=== PATIENT | female | born 1935 | race Caucasian/White ===

== ENCOUNTER 2017-11-02 20:25 | Observation (INO) | payer MEDICARE, SELFPAY ==
[2017-11-02] VITALS (9 sets, daily range): BP systolic 100–144; BP diastolic 46–102; PULSE 64–83; RESP 16–18; TEMP 36.8–37; O2SAT 94–97; BMI 32.5; BMI 31.8; BMI 32.6
--- NOTE | 2017-11-02 20:44 | EKG12_ITS ---
Test Reason : CP Blood Pressure : / mmHG Vent. Rate : 085 BPM Atrial Rate : 085 BPM P-R Int : 190 ms QRS Dur : 088 ms QT Int : 388 ms P-R-T Axes : 044 002 052 degrees QTc Int : 461 ms Poor data quality, interpretation may be adversely affected Normal sinus rhythm Normal ECG Confirmed by MIGUEL SALEH, JONG ([id number]), story editor ANGIE AGUIRRE ([id number]) on 11/05/2017 2:18:00 PM Referred By: BETZAIDA/MARCK Confirmed By:JONG RIVERA MD
--- NOTE | 2017-11-02 20:50 | RAD_ITS ---
STUDY: X-RAY CHEST REASON FOR EXAM: Female, 82 years old. Shortness of breath, cough TECHNIQUE: Single AP portable view of the chest. COMPARISON: Prior study of 12/30/2013 FINDINGS: cardiac monitor leads are present. The lungs are clear and expanded. The right hemidiaphragm is elevated. Normal size heart. Normal mediastinum and noah. Normal visualized pulmonary arteries. Normal visualized aortic arch and descending thoracic aorta. Normal visualized thoracic spine. Normal visualized ribs, clavicles, and shoulders. There is no demonstrated abnormality of the visualized soft tissue structures of the upper abdomen. RAD/Chest 1 View (Portable) IMPRESSION: Elevated right hemidiaphragm. No acute cardiopulmonary disease process is seen. Electronically Signed: Osmin Valadez MD at 21:04 EDT , Service support ,
[2017-11-02 20:58] LABS: Absolute Lymphocyte Count 3.31 X10^3/ul (0.83-4.51); Absolute Neutrophil Count 3.1 X10^3/uL (2.0-7.7); Basophil# 0.03 X10^3/uL; Basophil% 0.4 % (0-1); Eosinophil# 0.38 X10^3/uL; Eosinophils% 5.2 % (0-5); Hemoglobin 13.3 g/dl (12.0-15.0); Lymphocyte # 3.31 X10^3/ul (4.0); Mean Corp Hgb Conc 34.1 g/gl (32-36); Mean Corpuscular Volume 87.8 fL (81-99); Mean Platelet Vol. 10.3 fl (6.2-12.0); Monocyte# 0.47 X10^3/uL; Monocyte% 6.4 % (0-10); Neutrophil # 3.12 X10^3/uL (2.7-7.7); Neutrophil % 42.5 % (47-70); POSITIVE COUNT NO; POSITIVE DIFFERENTIAL NO; POSITIVE MORPHOLOGY NO; Platelet Count 179 K/mm3 (150-450); RBC Distribution Width CV 13.7 % (11.6-14.6); RBC Distribution Width SD 43.1 fl (35.1-43.9); Red Blood Count 4.44 M/mm3 (4.2-5.4); White Blood Count 7.4 K/mm3 (4.4-11.0)
[2017-11-02] MEDS: 0.9% Normal Saline 1,000 ML 150 ML IV (21:03)
--- NOTE | 2017-11-02 21:14 | ED.RN ---
PT CHEST PAIN REDUCED FROM 5 HEAVINESS TO 1. REFUSING ANY OTHE NITRO AT THIS TIME. DR. HUSTON AWARE
[2017-11-02 21:18] LABS: Anion Gap 9 (5-15); BUN 17 mg/dL (7-18); BUN/Creat Ratio 13.9 RATIO (10-20); Calcium,Total 9.6 mg/dL (8.5-10.1); Chloride 107 mmol/L (98-107); Creatinine, Serum 1.22 mg/dL (0.55-1.02); EST Glomerular Filtration Rate 45 mL/min (>60); Est Glom Filt Rate - Afr Amer 55 mL/min (>60); Estimated Creatinine Clearance 27.75 ml/min; Glucose 166 mg/dL (74-106); Potassium 3.5 mmol/L (3.5-5.1); Sodium Level 142 mmol/L (136-145)
--- NOTE | 2017-11-02 21:36 | ED.VISSUMM ---
- ER Visit Summary Date of Service: 11/02/17 Chief Complaint: [] History of Present Illness: The patient is a 82 F chest pain and shortness of breath presents the emergency department with complaint of shortness of breath that started about an hour ago. Patient states that she was sitting on the couch watching television when she started to cough and feel short of breath. Patient also developed a chest heaviness and tightness. Patient called for help using her life alert button. On arrival she states she still has some mild shortness of breath and some mild chest tightness. Patient denies any radiation of pain. She denies recent travel or surgery. Patient has no cardiac history. Patient does have a history of diabetes, asthma, hypothyroidism, and sarcoidosis. [] Physical Examination: [HEENT-PERRLA, EOMI. Cranial nerves II through XII grossly intact. TMs clear. Mucous membranes moist. No adenopathy. Cardiovascular-regular rate and rhythm without murmur or ectopy Lungs-clear to auscultation, chest wall stable without crepitus or subcu emphysema Abdomen-normoactive bowel sounds, soft, nontender, no rebound or rigidity, no peritoneal signs. Extremities-intact ?4, normal range of motion, normal pulses, atraumatic] Test Results: [EKG obtained arrival showed a sinus rhythm with a ventricular rate of 85 bpm with no acute ST segment changes. When compared with prior EKG from December 2013 no new changes noted. CBC with differential obtained was unremarkable. Chemistries unremarkable. Troponin was less than 0.015. And chest x-ray showed nothing acute.] Emergency Department Course and Treatment: [Patient received aspirin via EMS and while in the emergency department she did receive 1 sublingual nitro that mostly resolved her pain.] Treatment Plan: [Admit for further workup and evaluation.] Disposition: [Admit] Impression: [Chest pain-rule out acute coronary syndrome] This note was generated with [employer] dictation software. It may contain incorrect words, spelling, and punctuation that were not noted in review of the chart prior to signing ED Disposition - Plan for ED Patient: Chief Complaint: Chest Pain Referrals: Regine Mas MD [Primary Care Provider] -
--- NOTE | 2017-11-02 21:49 | PCM.HP.STD ---
Problem List (1) Chest pain Status: Acute Qualifiers: Chest pain type: unspecified Qualified Code(s): R07.9 - Chest pain, unspecified (2) Obesity (BMI 30.0-34.9) Status: Chronic (3) GERD (gastroesophageal reflux disease) Status: Chronic Qualifiers: Esophagitis presence: esophagitis presence not specified Qualified Code(s): K21.9 - Gastro-esophageal reflux disease without esophagitis (4) Sarcoidosis Status: Chronic (5) Hypothyroidism Status: Chronic Qualifiers: Hypothyroidism type: unspecified Qualified Code(s): E03.9 - Hypothyroidism, unspecified (6) Asthma Status: Chronic Qualifiers: Asthma severity: unspecified severity Asthma persistence: unspecified Asthma complication type: unspecified Qualified Code(s): J45.909 - Unspecified asthma, uncomplicated History of Present Illness Date of Admission: 11/02/17 Chief Complaint: Chest pain The patient is a 82 y/o F w/ PMHx: Diabetes mellitus type II, Asthma, Hypothyroidism, Sarcoidosis, obesity, GERD who presents to the [facility] ED on 11/02/17 with history of onset of substernal chest discomfort described as pressure and heaviness with associated dyspnea with no nausea or emesis but felt hot and flushed rating her pain initially 10 out of 10 but upon ED presentation had improved to 5 out of 10. Patient notes that she has had exertional dyspnea with activities over the last several months but no prior episodes of chest discomfort. She was seated watching TV when this occurred. Patient was administered aspirin per EMS and upon arrival to the ED administered nitroglycerin with resolution of her chest pain following. In the ED work-up included T 98.6, heart rate 82, BP 144/102, respiratory rate 16, 96% on room air, CBC with WBC 7.4, hemoglobin 13.3, platelet 179, BMP with BUN/creatinine 17/1.22, glucose 166, troponin less than 0.015, EKG with SR, chest x-ray with elevated right hemidiaphragm with no acute cardiopulmonary disease noted otherwise. In the emergency room patient prototype sewer normal saline, aspirin, nitroglycerin. Past Medical History Past Medical History (Chronic Problems): Chronic Problems Obesity (BMI 30.0-34.9) (Chronic) GERD (gastroesophageal reflux disease) (Chronic) Sarcoidosis (Chronic) Hypothyroidism (Chronic) Asthma (Chronic) Allergies acetaminophen [From Vicodin] Adverse Reaction (Verified 11/02/17 20:30) Other alendronate sodium Adverse Reaction (Verified 11/02/17 20:30) Nausea/Vom/Diarrhea gabapentin [From Neurontin] Adverse Reaction (Verified 11/02/17 20:30) Other hydrocodone [From Vicodin] Adverse Reaction (Verified 11/02/17 20:30) Other naproxen [From Aleve] Adverse Reaction (Verified 11/02/17 20:30) Nausea/Vom/Diarrhea BANDAIDES Adverse Reaction (Uncoded 11/02/17 20:31) Rash Home Medications: Ambulatory Orders Medication Instructions Recorded Albuterol Aerosols [Ventolin 2.5 mg INHALATION Q6H PRN PRN 12/21/15 Aerosols] Benzonatate [Tessalon Perle] 100 mg PO TID PRN PRN 12/21/15 Dicyclomine HCl [Bentyl] 10 mg PO TIDAC PRN 12/21/15 Ergocalciferol [Vitamin D] 50 mcg PO MOFR 12/21/15 Fluticasone 0.05% [Flonase Nasal 1 spray NASAL DAILY 12/21/15 [place]] Glimepiride [Amaryl] 1 mg PO DAILY 12/21/15 Hydroxychloroquine [Plaquenil] 200 mg PO BIDCM 12/21/15 Levothyroxine [Synthroid] 50 mcg PO DAILY 12/21/15 Pantoprazole Sodium [Protonix] 40 mg PO DAILY 12/21/15 traZODone [Desyrel] 50 - 100 mg PO QHS PRN 12/21/15 Albuterol Sulfate [Ventolin Hfa] 2 puff IH Q4H PRN PRN 11/02/17 Dextromethorphan Polistirex 10 ml PO PRN PRN 11/02/17 [Delsym] Fluticasone 44 Mcg [Flovent (SP)] 2 puff INHALATION BID 11/02/17 Surgical History: - - Partial hysterectomy, cholecystectomy. 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 Denies: Chills, Fever, Weight Change HEENT: Denies: Head Aches, Sinus Congestion, Sinus Drainage Cardiovascular: Reports: Chest Pain, Chest Pressure, Chest Tightness. Denies: Edema, Light Headedness, Orthopnea, Palpitations Respiratory: Reports: Shortness of Breath, Shortness of breath at rest, Shortness of breath upon exertion. Denies: Cough, Sputum production Gastrointestinal: Denies: Abdominal Pain, Nausea, Vomiting Genitourinary: Denies: Dysuria Musculoskeletal: Denies: Joint Pain, Joint Tenderness Skin: Denies: Rash, Wounds Neurological: Denies: Numbness, Tingling, Focal weakness Psychiatric: Denies: Anxiety, Depression, Homicidal Ideations, Suicidal Ideations Hematologic/ Lymphatic: Denies: Easy Bruising, Easy Bleeding VTE Information - Inpt Only VTE Present on Admission: No VTE Mechan Device Prophylaxis: SCD's VTE Pharm Prophylaxis ordered?: Yes Patient Problems: Active and Suspected Problems Chest pain (Acute) Subjective: Seated upright in the ED bed, no acute distress, notes chest pain still currently resolved. Objective: Physical Examination: General: awake, alert, oriented x 3 and cooperative, seated upright in bed in no apparent distress. Skin: normal color, turgor, no icterus, cyanosis. HEENT: AT/NC, EOMI, PERRLA, MMM, no carotid bruits or JVD noted. Lungs: CTA bilaterally, moderate effort, mild decrease BL bases, no rales, ronchi or wheezing. Heart: Regular rate and rhythm; no gallop, rub audible. Abdomen: soft, obese, NTTP, ND, normal BS, no HSM. Extremities: no cyanosis, clubbing, or edema. Neurological: patient awake, alert, oriented x 3; cognitive function intact; pupils equally reactive to light and accomodation; cranial nerves II-XII grossly normal, moving all 4 extremities, no focal deficits, strength mildly to moderately globally decreased. Psychiatric: affect appears normal, no acute evidence of depressive or anxiety feelings. - Physical Exam Vital Signs Temp Pulse Resp BP Pulse Ox 98.6 F 83 16 128/55 H 96 11/02/17 20:26 11/02/17 21:03 11/02/17 20:26 11/02/17 21:03 11/02/17 20:26 Oxygen Delivery Method Room Air Weight: 172 lb 9.951 oz Body Mass Index (BMI) 32.5 Laboratory Tests Past 24 Hrs 11/02/17 11/02/17 20:31 20:31 WBC 7.4 RBC 4.44 Hgb 13.3 Hct 39.0 MCV 87.8 MCH 30.0 MCHC 34.1 RDW 13.7 RDW Differential 43.1 Plt Count 179 MPV 10.3 Immature Gran % (Auto) 0.500 Neut % (Auto) 42.5 L Lymph % (Auto) 45.0 H [place] % (Auto) 6.4 Eos % (Auto) 5.2 H Baso % (Auto) 0.4 Absolute Neuts (auto) 3.1 Absolute Lymphs (auto) 3.31 Total Counted Not Reportable Sodium 142 Potassium 3.5 Chloride 107 Carbon Dioxide 26.0 Anion Gap 9 BUN 17 Creatinine 1.22 H Estim Creat Clear Calc 27.75 Est GFR (MDRD) Af Amer 55 L Est GFR (MDRD) Non-Af 45 L BUN/Creatinine Ratio 13.9 Glucose 166 H Calcium 9.6 Troponin I < 0.015 Assessment/Plan All Active Problems Chest pain (Acute) The patient is a 82 y/o F w/ PMHx: Diabetes mellitus type II, Asthma, Hypothyroidism, Sarcoidosis, obesity, GERD who presents to the [facility] ED on 11/02/17 with history of onset of substernal chest discomfort described as pressure and heaviness with associated dyspnea with no nausea or emesis but felt hot and flushed rating her pain initially 10 out of 10 but upon ED presentation had improved to 5 out of 10. Patient notes that she has had exertional dyspnea with activities over the last several months but no prior episodes of chest discomfort. (1) Chest Pain: ED work-up included T 98.6, heart rate 82, BP 144/102, respiratory rate 16, 96% on room air, CBC with WBC 7.4, hemoglobin 13.3, platelet 179, BMP with BUN/creatinine 17/1.22, glucose 166, troponin less than 0.015, EKG with SR, chest x-ray with elevated right hemidiaphragm with no acute cardiopulmonary disease noted otherwise. Will admit to PCU, place on a monitored bed to assure no acute myocardial infarction with serial cardiac enzymes and EKGs. Patient is unable to perform exercise thus will proceed with AM nuclear stress testing. ASA, NG, morphine. Mag pending. FLP in AM. (2) Hypothyroidism: Continue home synthroid regimen, TSH and FT4 pending. (3) Suspected CKD unclear stage: Admission BUN/Cr 17/1.22, CrCl 27, prior 2016 < 30, unclear baseline Cr, repeat BMP in AM. (4) Chronic Asthma: ATC duonebs, PRN albuterol, HOB, IS parameters. (5) Diabetes mellitus type II: Hold oral home regimen, ADA diet until NPO status, accu checks w/ ISS. (6) Obesity: Weight loss and lifestyle changes encouraged. (7) Sarcoidosis: Maintain on home plaquenil regimen. (8) GERD: PPI. (9) DVT Prophylaxis: SCDs, heparin. Code Visit OBSV E&M: 60961 Initial observation care L3
--- NOTE | 2017-11-02 22:02 | HP.PCM_ITS ---
Problem List (1) Chest pain Status: Acute Qualifiers: Chest pain type: unspecified Qualified Code(s): R07.9 - Chest pain, unspecified (2) Obesity (BMI 30.0-34.9) Status: Chronic (3) GERD (gastroesophageal reflux disease) Status: Chronic Qualifiers: Esophagitis presence: esophagitis presence not specified Qualified Code(s): K21.9 - Gastro-esophageal reflux disease without esophagitis (4) Sarcoidosis Status: Chronic (5) Hypothyroidism Status: Chronic Qualifiers: Hypothyroidism type: unspecified Qualified Code(s): E03.9 - Hypothyroidism, unspecified (6) Asthma Status: Chronic Qualifiers: Asthma severity: unspecified severity Asthma persistence: unspecified Asthma complication type: unspecified Qualified Code(s): J45.909 - Unspecified asthma, uncomplicated History of Present Illness Date of Admission: 11/02/17 Chief Complaint: Chest pain The patient is a 82 y/o F w/ PMHx: Diabetes mellitus type II, Asthma, Hypothyroidism, Sarcoidosis, obesity, GERD who presents to the [facility] ED on 11/02/17 with history of onset of substernal chest discomfort described as pressure and heaviness with associated dyspnea with no nausea or emesis but felt hot and flushed rating her pain initially 10 out of 10 but upon ED presentation had improved to 5 out of 10. Patient notes that she has had exertional dyspnea with activities over the last several months but no prior episodes of chest discomfort. She was seated watching TV when this occurred. Patient was administered aspirin per EMS and upon arrival to the ED administered nitroglycerin with resolution of her chest pain following. In the ED work-up included T 98.6, heart rate 82, BP 144/102, respiratory rate 16, 96% on room air, CBC with WBC 7.4, hemoglobin 13.3, platelet 179, BMP with BUN/creatinine 17/1.22, glucose 166, troponin less than 0.015, EKG with SR, chest x-ray with elevated right hemidiaphragm with no acute cardiopulmonary disease noted otherwise. In the emergency room patient vocational examiner normal saline, aspirin, nitroglycerin. Past Medical History Past Medical History (Chronic Problems): Chronic Problems Obesity (BMI 30.0-34.9) (Chronic) GERD (gastroesophageal reflux disease) (Chronic) Sarcoidosis (Chronic) Hypothyroidism (Chronic) Asthma (Chronic) Allergies acetaminophen [From Vicodin] Adverse Reaction (Verified 11/02/17 20:30) Other alendronate sodium Adverse Reaction (Verified 11/02/17 20:30) Nausea/Vom/Diarrhea gabapentin [From Neurontin] Adverse Reaction (Verified 11/02/17 20:30) Other hydrocodone [From Vicodin] Adverse Reaction (Verified 11/02/17 20:30) Other naproxen [From Aleve] Adverse Reaction (Verified 11/02/17 20:30) Nausea/Vom/Diarrhea BANDAIDES Adverse Reaction (Uncoded 11/02/17 20:31) Rash Home Medications: Ambulatory Orders Medication Instructions Recorded Albuterol Aerosols [Ventolin 2.5 mg INHALATION Q6H PRN PRN 12/21/15 Aerosols] Benzonatate [Tessalon Perle] 100 mg PO TID PRN PRN 12/21/15 Dicyclomine HCl [Bentyl] 10 mg PO TIDAC PRN 12/21/15 Ergocalciferol [Vitamin D] 50 mcg PO MOFR 12/21/15 Fluticasone 0.05% [Flonase Nasal 1 spray NASAL DAILY 12/21/15 [place]] Glimepiride [Amaryl] 1 mg PO DAILY 12/21/15 Hydroxychloroquine [Plaquenil] 200 mg PO BIDCM 12/21/15 Levothyroxine [Synthroid] 50 mcg PO DAILY 12/21/15 Pantoprazole Sodium [Protonix] 40 mg PO DAILY 12/21/15 traZODone [Desyrel] 50 - 100 mg PO QHS PRN 12/21/15 Albuterol Sulfate [Ventolin Hfa] 2 puff IH Q4H PRN PRN 11/02/17 Dextromethorphan Polistirex 10 ml PO PRN PRN 11/02/17 [Delsym] Fluticasone 44 Mcg [Flovent (SP)] 2 puff INHALATION BID 11/02/17 Surgical History: - - Partial hysterectomy, cholecystectomy. 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 Denies: Chills, Fever, Weight Change HEENT: Denies: Head Aches, Sinus Congestion, Sinus Drainage Cardiovascular: Reports: Chest Pain, Chest Pressure, Chest Tightness. Denies: Edema, Light Headedness, Orthopnea, Palpitations Respiratory: Reports: Shortness of Breath, Shortness of breath at rest, S hortness of breath upon exertion. Denies: Cough, Sputum production Gastrointestinal: Denies: Abdominal Pain, Nausea, Vomiting Genitourinary: Denies: Dysuria Musculoskeletal: Denies: Joint Pain, Joint Tenderness Skin: Denies: Rash, Wounds Neurological: Denies: Numbness, Tingling, Focal weakness Psychiatric: Denies: Anxiety, Depression, Homicidal Ideations, Suicidal Ideations Hematologic/ Lymphatic: Denies: Easy Bruising, Easy Bleeding VTE Information - Inpt Only VTE Present on Admission: No VTE Mechan Device Prophylaxis: SCD's VTE Pharm Prophylaxis ordered?: Yes Patient Problems: Active and Suspected Problems Chest pain (Acute) Subjective: Seated upright in the ED bed, no acute distress, notes chest pain still currently resolved. Objective: Physical Examination: General: awake, alert, oriented x 3 and cooperative, seated upright in bed in no apparent distress. Skin: normal color, turgor, no icterus, cyanosis. HEENT: AT/NC, EOMI, PERRLA, MMM, no carotid bruits or JVD noted. Lungs: CTA bilaterally, moderate effort, mild decrease BL bases, no rales, ronchi or wheezing. Heart: Regular rate and rhythm; no gallop, rub audible. Abdomen: soft, obese, NTTP, ND, normal BS, no HSM. Extremities: no cyanosis, clubbing, or edema. Neurological: patient awake, alert, oriented x 3; cognitive function intact; pupils equally reactive to light and accomodation; cranial nerves II-XII grossly normal, moving all 4 extremities, no focal deficits, strength mildly to moderately globally decreased. Psychiatric: affect appears normal, no acute evidence of depressive or anxiety feelings. - Physical Exam Vital Signs Temp Pulse Resp BP Pulse Ox 98.6 F 83 16 128/55 H 96 11/02/17 20:26 11/02/17 21:03 11/02/17 20:26 11/02/17 21:03 11/02/17 20:26 Oxygen Delivery Method Room Air Weight: 172 lb 9.951 oz Body Mass Index (BMI) 32.5 Laboratory Tests Past 24 Hrs 11/02/17 11/02/17 20:31 20:31 WBC 7.4 RBC 4.44 Hgb 13.3 Hct 39.0 MCV 87.8 MCH 30.0 MCHC 34.1 RDW 13.7 RDW Differential 43.1 Plt Count 179 MPV 10.3 Immature Gran % (Auto) 0.500 Neut % (Auto) 42.5 L Lymph % (Auto) 45.0 H [place] % (Auto) 6.4 Eos % (Auto) 5.2 H Baso % (Auto) 0.4 Absolute Neuts (auto) 3.1 Absolute Lymphs (auto) 3.31 Total Counted Not Reportable Sodium 142 Potassium 3.5 Chloride 107 Carbon Dioxide 26.0 Anion Gap 9 BUN 17 Creatinine 1.22 H Estim Creat Clear Calc 27.75 Est GFR (MDRD) Af Amer 55 L Est GFR (MDRD) Non-Af 45 L BUN/Creatinine Ratio 13.9 Glucose 166 H Calcium 9.6 Troponin I < 0.015 Assessment/Plan All Active Problems Chest pain (Acute) The patient is a 82 y/o F w/ PMHx: Diabetes mellitus type II, Asthma, Hypothyroidism, Sarcoidosis, obesity, GERD who presents to the [facility] ED on 11/02/17 with history of onset of substernal chest discomfort described as pressure and heaviness with associated dyspnea with no nausea or emesis but felt hot and flushed rating her pain initially 10 out of 10 but upon ED presentation had improved to 5 out of 10. Patient notes that she has had exertional dyspnea with activities over the last several months but no prior episodes of chest discomfort. (1) Chest Pain: ED work-up included T 98.6, heart rate 82, BP 144/102, respiratory rate 16, 96% on room air, CBC with WBC 7.4, hemoglobin 13.3, platelet 179, BMP with BUN/creatinine 17/1.22, glucose 166, troponin less than 0.015, EKG with SR, chest x-ray with elevated right hemidiaphragm with no acute cardiopulmonary disease noted otherwise. Will admit to PCU, place on a monitored bed to assure no acute myocardial infarction with serial cardiac enzymes and EKGs. Patient is unable to perform exercise thus will proceed with AM nuclear stress testing. ASA, NG, morphine. Mag pending. FLP in AM. (2) Hypothyroidism: Continue home synthroid regimen, TSH and FT4 pending. (3) Suspected CKD unclear stage: Admission BUN/Cr 17/1.22, CrCl 27, prior 2016 < 30, unclear baseline Cr, repeat BMP in AM. (4) Chronic Asthma: ATC duonebs, PRN albuterol, HOB, IS parameters. (5) Diabetes mellitus type II: Hold oral home regimen, ADA diet until NPO status, accu checks w/ ISS. (6) Obesity: Weight loss and lifestyle changes encouraged. (7) Sarcoidosis: Maintain on home plaquenil regimen. (8) GERD: PPI. (9) DVT Prophylaxis: SCDs, heparin. Code Visit OBSV E&M: 11853 Initial observation care L3
--- NOTE | 2017-11-02 22:34 | EKG12_ITS ---
Test Reason : CP ADMISSION Blood Pressure : / mmHG Vent. Rate : 069 BPM Atrial Rate : 069 BPM P-R Int : 208 ms QRS Dur : 084 ms QT Int : 428 ms P-R-T Axes : 060 014 049 degrees QTc Int : 458 ms Normal sinus rhythm Low voltage QRS Cannot rule out Anterior infarct , age undetermined Abnormal ECG Confirmed by MIGUEL SALEH, JONG ([id number]), field map editor ANGIE AGUIRRE ([id number]) on 11/05/2017 2:31:29 PM Referred By: JACOB Confirmed By:JONG RIVERA MD
[2017-11-02] MEDS: 0.9% Normal Saline 1,000 ML 75 ML IV (23:20)
[2017-11-02] MEDS: Heparin Injection (Vial) 5,000 UNIT/ML VIAL 5000 UNIT SC (23:20)
[2017-11-02] MEDS: traZODone 50 MG Tablet PO (23:20)
[2017-11-02 23:35] LABS: Magnesium 1.9 mg/dL (1.6-2.6); T4 Free Direct 0.91 ng/dL (0.76-1.46); Thyroid Stim Hormone (TSH) 4.02 uIU/mL (0.358-3.74)
--- NOTE | 2017-11-02 23:35 | CPS ---
PATIENT ARRIVED TO FLOOR AND REQUESTED ROUTINE DUONEB AEROSOL NOW INSTEAD OF AT 0100.
[2017-11-03] VITALS (7 sets, daily range): BP systolic 114–118; BP diastolic 47–59; PULSE 65–73; RESP 14–16; TEMP 36.6–36.8; O2SAT 90–97
[2017-11-03 02:55] LABS: Hematocrit 33.2 % (37-47); Hemoglobin 11.1 g/dl (12.0-15.0); Mean Corp Hgb Conc 33.4 g/gl (32-36); Mean Corpuscular Hgb 29.4 pg (27.0-32.0); Mean Corpuscular Volume 87.8 fL (81-99); Mean Platelet Vol. 9.8 fl (6.2-12.0); Platelet Count 147 K/mm3 (150-450); RBC Distribution Width CV 13.9 % (11.6-14.6); RBC Distribution Width SD 44.8 fl (35.1-43.9); Red Blood Count 3.78 M/mm3 (4.2-5.4); White Blood Count 6.6 K/mm3 (4.4-11.0)
[2017-11-03 02:56] LABS: Scan Indicated on CBC? Y/N NO
[2017-11-03 03:00] LABS: International Normalized Ratio 1.1; Prothrombin Time (Protime)PT. 13.8 SECONDS (11.7-14.9)
[2017-11-03 03:01] LABS: Partial Thromboplast Time 34.9 Seconds (24.1-36.2)
[2017-11-03 03:17] LABS: Anion Gap 8 (5-15); BUN 15 mg/dL (7-18); Calcium,Total 8.8 mg/dL (8.5-10.1); Chloride 113 mmol/L (98-107); Cholesterol 138 mg/dL (200); Creatinine, Serum 1.07 mg/dL (0.55-1.02); EST Glomerular Filtration Rate 52 mL/min (>60); Est Glom Filt Rate - Afr Amer 63 mL/min (>60); Estimated Creatinine Clearance 31.64 ml/min; Glucose 115 mg/dL (74-106); High Density Lipoprotein 30 mg/dL; Potassium 4.3 mmol/L (3.5-5.1); Sodium Level 145 mmol/L (136-145); Triglycerides 220 mg/dL; Very Low Density Lipoprotein 44 mg/dL (5-40)
[2017-11-03] MEDS: Levothyroxine 50 MCG Tablet PO (05:01)
[2017-11-03] MEDS: Aspirin E.C. 81 MG Tablet PO (05:01)
--- NOTE | 2017-11-03 05:55 | EKG12_ITS ---
Test Reason : AM EKG Blood Pressure : / mmHG Vent. Rate : 065 BPM Atrial Rate : 065 BPM P-R Int : 224 ms QRS Dur : 078 ms QT Int : 448 ms P-R-T Axes : 048 008 054 degrees QTc Int : 465 ms Sinus rhythm with 1st degree A-V block Low voltage QRS Borderline ECG When compared with ECG of 02-NOV-2017 23:00, MANUAL COMPARISON REQUIRED, DATA IS UNCONFIRMED Confirmed by MIGUEL SALEH, JONG ([id number]), senior technical editor ANGIE AGUIRRE ([id number]) on 11/05/2017 2:29:56 PM Referred By: JACOB Confirmed By:JONG RIVERA MD
[2017-11-03 06:11] LABS: Bedside Glucose 101 mg/dL (70-110)
--- NOTE | 2017-11-03 08:49 | STRESSREP ---
Stress Test Report Pharmacologic myocardial perfusion stress test. 82-year-old lady with a history of chest pain. Stress protocol: Resting EKG demonstrates normal sinus rhythm with a rate of 65 bpm normal intervals and noted. Resting blood pressures 120/70 mmHg. 0.4 mg of regadenoson was infused per usual protocol continuous EKG monitoring was performed. The maximum heart rate attained was 92 bpm which was 65% of maximum predicted heart rate the maximum workload was 1 metabolic equivalent. The patient maintained sinus rhythm throughout the recording. At rest there were no ST or T-wave changes noted suggest abnormal flow reserve at peak infusion no ST or T-wave changes were noted suggest abnormal flow reserve. Myocardial perfusion protocol. 11.8 mCi of technetium 99m sestamibi was injected at rest. 0.4 mg regadenoson was infused per usual protocol peak infusion 34.1 mCi of technetium 99m sestamibi was injected stress images were obtained stress and rest images were reconstructed and compared in the short axis vertical long horizontal long axis. Gated images were also obtained pre- Perfusion SPECT analysis: Review of the stress images demonstrate normal uptake of tracer noted in all areas of the myocardium. The resting images similarly demonstrate normal uptake of tracer noted in all areas of the myocardium. Gated SPECT analysis: The gated ejection fraction is noted to be 53%. Conclusion: Normal pharmacologic myocardial perfusion stress test. Preserved ejection fraction.
[2017-11-03] MEDS: Acetaminophen 325 MG Tablet 650 MG PO (09:13)
[2017-11-03] MEDS: Pantoprazole Sodium 40 MG Tablet PO (09:13)
[2017-11-03] MEDS: Hydroxychloroquine 200 MG Tablet PO (09:13)
[2017-11-03] MEDS: Fluticasone 0.05% 1 SPRAY NASAL.SRY NASAL (09:15)
[2017-11-03] MEDS: Dicyclomine 10 MG Capsule PO (09:30)
[2017-11-03] MEDS: Insulin Lispro 100 UNIT/ML INSULN.PEN SC (11:19)
[2017-11-03 11:21] LABS: Bedside Glucose 211 mg/dL (70-110)
--- NOTE | 2017-11-03 11:39 | DCINST_ITS ---
- Discharge Diagnoses Current Active Problems: Current Active and Chronic Problems Obesity (BMI 30.0-34.9) (Chronic) GERD (gastroesophageal reflux disease) (Chronic) Chest pain (Acute) You will use the following diet at home:: Calorie/Carbohydrate Controlled (specify 1200, 1400, etc) - 1800 april / day Your food should be the consistency of: Regular Your liquids should be the consistency of: Regular/Thin Discharge Activity: Return to Normal Activity Allergies/Adverse Reactions: Allergies acetaminophen [From Vicodin] Adverse Reaction (Verified 11/02/17 20:30) Other alendronate sodium Adverse Reaction (Verified 11/02/17 20:30) Nausea/Vom/Diarrhea gabapentin [From Neurontin] Adverse Reaction (Verified 11/02/17 20:30) Other hydrocodone [From Vicodin] Adverse Reaction (Verified 11/02/17 20:30) Other naproxen [From Aleve] Adverse Reaction (Verified 11/02/17 20:30) Nausea/Vom/Diarrhea BANDAIDES Adverse Reaction (Uncoded 11/02/17 20:31) Rash Medications to take at Discharge Albuterol Aerosols [Ventolin Aerosols] 2.5 mg INHALATION Q6H PRN PRN 12/21/15 Benzonatate [Tessalon Perle] 100 mg PO TID PRN PRN 12/21/15 Dicyclomine HCl [Bentyl] 10 mg PO TIDAC PRN 12/21/15 Ergocalciferol [Vitamin D] 50 mcg PO MOFR 12/21/15 Fluticasone 0.05% [Flonase Nasal [place]] 1 spray NASAL DAILY 12/21/15 Glimepiride [Amaryl] 1 mg PO DAILY 12/21/15 Hydroxychloroquine [Plaquenil] 200 mg PO BIDCM 12/21/15 Levothyroxine [Synthroid] 50 mcg PO DAILY 12/21/15 Pantoprazole Sodium [Protonix] 40 mg PO DAILY 12/21/15 traZODone [Desyrel] 50 - 100 mg PO QHS PRN 12/21/15 Albuterol Sulfate [Ventolin Hfa] 2 puff IH Q4H PRN PRN 11/02/17 Dextromethorphan Polistirex [Delsym] 10 ml PO PRN PRN 11/02/17 Fluticasone 44 Mcg [Flovent 44 Mcg] 2 puff INHALATION BID 11/02/17 Primary Care Physician: Regine Mas MD [Primary Care Provider] - Please follow up with your Primary Care Physician in: 1-2 weeks Test Results: Test results from this visit will be discussed in further detail at your follow- up appointment, if applicable. Proposed Discharge Date: 11/03/17
--- NOTE | 2017-11-03 14:39 | DS.PCM_ITS ---
<Pablo Escoto - Last Filed: 11/03/17 14:36> Discharge Date and Diagnosis Date of Admission: 11/02/17 Date of Discharge: 11/03/17 - Primary Discharge Diagnosis Chest pain - musculoskeletal asthma obesity hypothyroid sarcoidosis GERD - Secondary Discharge Diagnosis Chronic Problems Obesity (BMI 30.0-34.9) (Chronic) GERD (gastroesophageal reflux disease) (Chronic) Sarcoidosis (Chronic) Hypothyroidism (Chronic) Asthma (Chronic) Hospital Course and Treatment Imaging Results: 11/03/17 05:55 Nuclear Stress Test - Chemical [NM] AM (NON MEDS) Conclusion: Normal pharmacologic myocardial perfusion stress test. Preserved ejection fraction. RAD/Chest 1 View (Portable) IMPRESSION: Elevated right hemidiaphragm. No acute cardiopulmonary disease process is seen. Operations: None Procedures: Stress test Summary of Care Provided: Physical exam on day of discharge: General: Resting comfortably NAD Psych: A/Ox3 normal affect HEENT: PEARRLA AT NC Neck: Supple NT CV: RRR no m/t/r/g/h Resp: CTA Abd: [id number] Soft NT no guarding or rigidity Ext: DP2+= no edema Skin: W/D normal turgor Lymph/Heme: No active bleeding or adenopathy Neuro: CN2-12 intact Hospital course: The patient is a 82 year old F with past medical history of asthma, sarcoidosis, hypothyroidism, GERD who presented to the emergency room with chief complaint of chest heaviness for 2 days. The emergency room the patient had a negative EKG, negative troponin, negative chest x-ray. She was admitted and placed in the PCU for chest pain workup. Troponin was cycled remain negative. She had no events on telemetry. She underwent a stress test following morning with no indication of ischemia. This felt that her chest heaviness is likely secondary to musculoskeletal pain. She was discharged home in stable condition with no further changes. Advised her to follow-up with her PCP in 1 to weeks. This patient was seen by Pablo Escoto PA-C under the supervision of Doctor Singh. [] Discharge Diet: No Restrictions Discharge Activity: Return to Normal Activity Home Medications: Medications to take at Discharge Albuterol Aerosols [Ventolin Aerosols] 2.5 mg INHALATION Q6H PRN PRN 12/21/15 Benzonatate [Tessalon Perle] 100 mg PO TID PRN PRN 12/21/15 Dicyclomine HCl [Bentyl] 10 mg PO TIDAC PRN 12/21/15 Ergocalciferol [Vitamin D] 50 mcg PO MOFR 12/21/15 Fluticasone 0.05% [Flonase Nasal [place]] 1 spray NASAL DAILY 12/21/15 Glimepiride [Amaryl] 1 mg PO DAILY 12/21/15 Hydroxychloroquine [Plaquenil] 200 mg PO BIDCM 12/21/15 Levothyroxine [Synthroid] 50 mcg PO DAILY 12/21/15 Pantoprazole Sodium [Protonix] 40 mg PO DAILY 12/21/15 traZODone [Desyrel] 50 - 100 mg PO QHS PRN 12/21/15 Albuterol Sulfate [Ventolin Hfa] 2 puff IH Q4H PRN PRN 11/02/17 Dextromethorphan Polistirex [Delsym] 10 ml PO PRN PRN 11/02/17 Fluticasone 44 Mcg [Flovent 44 Mcg] 2 puff INHALATION BID 11/02/17 Primary Care Physician: Regine Mas MD [Primary Care Provider] - Please follow up with your Primary Care Physician in: 1-2 weeks Disposition: Home Minutes spent on discharge:: 35 Patient Condition:: Stable Medical Necessity - Tobacco Use Smoking Status: Never smoker Tobacco Use: Non-smoker Meaningful Use Info Meaningful Use Diagnoses (Choose all that apply): None applicable <Kulwant Singh - Last Filed: 11/03/17 17:17> Discharge Date and Diagnosis - Secondary Discharge Diagnosis Chronic Problems Obesity (BMI 30.0-34.9) (Chronic) GERD (gastroesophageal reflux disease) (Chronic) Sarcoidosis (Chronic) Hypothyroidism (Chronic) Asthma (Chronic) Hospital Course and Treatment Summary of Care Provided: This patient was seen in conjunction with Pablo COLLAZO. I have independently interviewed and examined the patient and reviewed pertinent history, examination findings, laboratory and plan of management. I have reviewed the note and agree with the documented findings with the few additional points. Patient does not have history of coronary artery disease or stent in the past. Denies CHF or arrhythmia. Patient was seen and examined. HEENT: PERRLA present, EOMI. Lungs: Air entry bilaterally equal. No crepitation/rhonchi Heart: S1-S2 regular no gallop/rub/murmur. Extremities: 2+ pedal edema Skin: No ulcer/rash. Neuro: Cranial nerves intact. Grossly normal. In brief, patient is admitted for chest heaviness for last 2 days. Patient had negative troponin and chest x-ray. She had nuclear stress test which showed no evidence of ischemia. Chest pain resolved. Patient is discharged home discharge meds reconciliation done. Discharge follow-up instructions completed. I have discussed my assessment with Pablo COLLAZO and orders have been reviewed. [] Code Visit OBSV E&M: 93403 Observation care discharge
== END 2017-11-03 11:39 | disposition home or self-care (01) ==
LOC: ED 21:42 → PCU 22:00
PROVIDERS: Admitting Provider Family Medicine; Emergency Provider Emergency Medicine; Family Provider Internal Medicine; PCP Internal Medicine; Visit Provider Internal Medicine
DX: R07.89 Other chest pain (principal); R06.02 Shortness of breath; Z23 Encounter for immunization; Z79.899 Other long term (current) drug therapy; J45.909 Unspecified asthma, uncomplicated; E11.9 Type 2 diabetes mellitus without complications; E03.9 Hypothyroidism, unspecified; D86.9 Sarcoidosis, unspecified; K21.9 Gastro-esophageal reflux disease without esophagitis; E66.9 Obesity, unspecified; Z68.31 Body mass index [BMI] 31.0-31.9, adult; Z71.3 Dietary counseling and surveillance; R94.31 Abnormal electrocardiogram [ECG] [EKG]
CPT/HCPCS: 36415; 71045; 78452; 80048; 80061; 82962; 83735; 84439; 84443; 84484; 85025; 85027; 85610; 85730; 93005; 93017; 94640; 96360; 96361; 96372; 99218; 99285; A9500; J7030; 90686; A4216; G0378; J2785

== ENCOUNTER → 2017-11-16 10:37 | Outpatient (CLI) | payer MEDICARE, SELFPAY ==
--- NOTE | 2017-11-16 11:01 | CT_ITS ---
STUDY: CTA CHEST REASON FOR EXAM: Female, 82 years old. Shortness of breath. PE. RADIATION DOSAGE (If Supplied By Facility): CTDIvol = ( 13.57 ) mGy, DLP = ( 532.53 ) mGycm TECHNIQUE: The examination was performed with the intravenous administration of 100 ml of Isovue 370 contrast material. Post-processing of the angiographic images was performed, with multiplanar reformation and MIP (maximum intensity projection) reconstruction. Individualized dose optimization techniques were used for this CT. COMPARISON: None. FINDINGS: Normal enhancement of the main pulmonary artery and right and left pulmonary arteries. Normal enhancement of the bilateral peripheral pulmonary arteries. There is no demonstrated pulmonary embolism. Mild dilatation of the ascending aorta with a diameter of 3 cm versus 2.1 cm for the descending thoracic aorta. 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 There is no demonstrated aortic dissection. Normal heart and pericardium. Several small solid lymph nodes in the right side of the superior mediastinum, the peritracheal space, the anterior carinal space and adjacent the left side of the ascending aorta. Normal hilar regions. Normal visualized trachea and bronchi. The lungs are well expanded. Calcified granuloma in the posterior segment of the right upper lobe. Calcified granuloma in the anterior segment of the right upper lobe. No suspicious pulmonary nodules. Normal pleura. Normal chest wall structures. Normal osseous structures. Normal visualized upper abdomen. CT/CTA Chest W/WO Contrast IMPRESSION: 1. No CTA evidence of pulmonary thromboemboli or thoracic aortic dissection. 2. Mild dilatation of the ascending aorta with a diameter of 3 cm versus 2.1 cm for the descending thoracic aorta. 3. 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 4. Several small solid lymph nodes in the right side of the superior mediastinum, the peritracheal space, the anterior carinal space and adjacent the left side of the ascending aorta. They are presumably benign reactive nodes. 5. No suspicious pulmonary nodules or acute abnormality in the chest. Electronically Signed: Shailesh Dominique MD at 12:19 EDT , Service support ,
== END ==
PROVIDERS: Family Provider Internal Medicine; PCP Internal Medicine; Referring Provider Nurse Practitioner Primary Care; Visit Provider Nurse Practitioner Primary Care
DX: R06.02 Shortness of breath (principal); R79.89 Other specified abnormal findings of blood chemistry
CPT/HCPCS: 71275; Q9967

== ENCOUNTER 2019-01-16 21:37 | Emergency (ER) | payer MEDICARE, SELFPAY ==
[2019-01-16 21:41] VITALS: BP 143/66; PULSE 78; RESP 18; TEMP 37.2; O2SAT 97; BMI 33.0
[2019-01-16 21:46] VITALS: BP 136/62
--- NOTE | 2019-01-16 22:07 | CT_ITS ---
STUDY: CT ABDOMEN AND PELVIS WITHOUT CONTRAST REASON FOR EXAM: Female, 83 years old. Right flank pain, frequent urination increased with movement RADIATION DOSAGE (If Supplied By Facility): CTDIvol = ( 11.55 ) mGy, DLP = ( 623.25 ) mGycm TECHNIQUE: Transaxial images were obtained from the dome of the diaphragm to the symphysis pubis without oral contrast, and without intravenous contrast. Sagittal and coronal images were reconstructed. Individualized dose optimization techniques were used for this CT. COMPARISON: Prior comparison studies are not available for review at this time. FINDINGS: The visualized lung bases are unremarkable. The visualized portions of the heart are within normal limits. Normal liver. There is non-visualization of the gallbladder, which may be secondary to either contraction or a prior cholecystectomy. Normal spleen. There is diffuse atrophy of the pancreas. Normal bilateral adrenal glands. There is mild right renal atrophy. The right kidney measures 7.6 x 4.6 x 4.9 cm. There is minimal left renal atrophy left renal cortical thinning. The left kidney measures 8.4 x 4.8 cm. There is no evidence of hydronephrosis. There is a punctate stone in the left kidney. Normal visualized stomach. Normal small intestine. There is mild to moderate stool in the proximal colon. The appendix is visualized and appears normal. There is partial calcification of the aorta. Normal inferior vena cava. There are multiple borderline atypical 1.4 cm lymph nodes in the left to midline retroperitoneum. Normal urinary bladder. There is absence of the uterus consistent with a prior hysterectomy. There is a right-sided periumbilical hernia with an opening measuring 1.7 cm there which 7.6 x 4.2 x 4.0 cm of intra-abdominal fat herniates. This is best appreciated image #84 series 602. There is multilevel degenerative change within the thoracolumbar spine. At L2-L3 there is vacuum phenomenon disc bulge disc space narrowing and mild neural foramina narrowing mild central stenosis. L3-L4 L4-L5 there is a broad disc bulge with moderate neural foramina narrowing mild to moderate central stenosis. CT/Abdomen/Pelvis without Cont IMPRESSION: Mild right greater than left renal atrophy. Nonobstructing renal calculi. Punctate stone left kidney no evidence of hydronephrosis. Moderate constipation. Right to midline fatty paraumbilical hernia measuring 7.6 x 4.2 x 4.0 cm. Status post hysterectomy. Degenerative change in the thoracolumbar spine. Nonvisualization of the gallbladder which is likely been surgically removed. Electronically Signed: Anabell Leonard MD at 23:25 EST Tel , Service support ,
[2019-01-16] MEDS: 0.9% Normal Saline 1,000 ML 125 ML IV (22:22)
[2019-01-16 22:25] LABS: Mucous, Urine 0 SEEN /hpf (<or=2+)
[2019-01-16 22:25] LABS: Absolute Lymphocyte Count 2.36 X10^3/uL (0.83-4.51); Basophil# 0.05 X10^3/uL; Basophil% 0.7 % (0-1); Eosinophil# 0.43 X10^3/uL; Eosinophils% 5.8 % (0-5); Hematocrit 40.6 % (37-47); Hemoglobin 13.8 g/dL (12.0-15.0); Lymphocyte # 2.36 X10^3/ul (4.0); Lymphocyte % 31.8 % (19-41); Mean Corpuscular Hgb 29.6 pg (27.0-32.0); Mean Corpuscular Volume 87.1 fL (81-99); Mean Platelet Vol. 10.8 fl (6.2-12.0); Monocyte# 0.57 X10^3/uL; Monocyte% 7.7 % (0-10); NRBC Flagged by Analyzer 0 % (0-5); Neutrophil # 3.95 X10^3/uL (2.7-7.7); Neutrophil % 53.3 % (47-70); Platelet Count 207 K/mm3 (150-450); RBC Distribution Width CV 13.8 % (11.6-14.6); RBC Distribution Width SD 43.2 fl (35.1-43.9); Red Blood Count 4.66 M/mm3 (4.2-5.4); White Blood Count 7.4 K/mm3 (4.4-11.0)
[2019-01-16 22:28] LABS: Color, Urine Yellow (Yellow); Glucose, Dipstick Normal (Normal); Ketone-Dipstick Negative (Negative); Leukocyte Esterase-Dipstick 500 /ul (Negative); Nitrite-Dipstick Positive (Negative); Occult Blood-Urine 25 /ul (Negative); Protein-Dipstick Negative (Negative); Specific Gravity, Urine 1.025 (1.002-1.030); Urine Bilirubin Dipstick Negative (Negative); Urine Clarity Sl. Cloudy (Clear); Urine Urobilinogen Normal (Normal)
[2019-01-16 22:44] LABS: Anion Gap 5 (5-15); BUN 18 mg/dL (7-18); BUN/Creat Ratio 15.5 RATIO (10-20); Calcium,Total 9.9 mg/dL (8.5-10.1); Chloride 110 mmol/L (98-107); Creatinine, Serum 1.16 mg/dL (0.55-1.02); EST Glomerular Filtration Rate 48 mL/min (>60); Est Glom Filt Rate - Afr Amer 58 mL/min (>60); Glucose 204 mg/dL (74-106); Potassium 4.3 mmol/L (3.5-5.1); Sodium Level 141 mmol/L (136-145)
[2019-01-16 22:47] LABS: Red Blood Cells-Urine 0-5 SEEN /hpf (0-5); White Blood Cells 10-25 SEEN /hpf (0-5)
[2019-01-16 22:48] LABS: Bacteria 1+ /hpf (None Seen); Squamous Epithelial Cells - UA 0-5 SEEN /hpf (5-10)
--- NOTE | 2019-01-16 23:08 | ED.VISSUMM ---
- ER Visit Summary Date of Service: 01/16/19 Chief Complaint: [Right-sided flank pain] History of Present Illness: The patient is a 83 F [is to the emergency department with complaint of pain in her right side that she has had for over 2 months. States the pain is been continuous. Patient states that today she was walking with her girlfriend the pain became worse. Pain is worse with movement. Patient denies any nausea or vomiting. She denies any diarrhea. She denies any blood in stool. She is had no fevers. She denies any trauma to her back. She denies pain rating down her legs. She denies saddle anesthesia. Patient has a history of hypothyroidism as well as GERD and history of asthma. Does complain of some urinary frequency at times. Patient sometimes feels like she cannot completely empty her bladder.] Physical Examination: [HEENT-PERRLA, EOMI. Cranial nerves II through XII grossly intact. TMs clear. Mucous membranes moist. No adenopathy. Cardiovascular-regular rate and rhythm without murmur or ectopy Lungs-clear to auscultation, chest wall stable without crepitus or subcu emphysema Abdomen-normoactive bowel sounds, soft. Patient has tenderness palpation over right lower quadrant and some mild CVA tenderness on the right. She was noted to have fungal yeastlike rash in the groin bilaterally. Back exam-no tenderness over the thoracic or lumbar spine. Negative straight leg raises. Deep tendon reflexes are plus 2 out of 4 bilaterally at the patella and Achilles. She has normal L5 extension. Extremities-intact ?4, normal range of motion, normal pulses, atraumatic] Test Results: [BC with differential obtained showed a white count of 7.4, hemoglobin 13.8, hematocrit 41, platelets 207. Chemistries unremarkable. Urinalysis was positive for 500 site esterase as well as nitrites. Patient had 10-25 WBCs and +1 bacteria noted.] CT scan of the abdomen pelvis without contrast was obtained and showed no evidence of kidney stones. Patient had some atrophy of the kidneys. Patient had a fatty periumbilical hernia and degenerative changes of the lumbar spine with central canal stenosis and some disc herniations noted. Emergency Department Course and Treatment: [Patient did not anything for pain on arrival. Patient was given Rocephin 1 g IV.] Treatment Plan: [Patient will be given a prescription for Bactrim as well as nystatin cream. Patient to follow-up with primary care physician within next 5 to 7 days.] Disposition: [Discharged home in stable condition] Impression: [UTI Candidal yeast infection Abdominal pain Back pain] This note was generated with [employer] software. It may contain incorrect words, spelling, and punctuation that were not noted in review of the chart prior to signing ED Disposition - Plan for ED Patient: Referrals: Regine Mas MD [Primary Care Provider] -
[2019-01-16] MEDS: Ceftriaxone 1 GM/50 ML BAG IV (23:10)
--- NOTE | 2019-01-16 23:48 | ED.DEP ---
ED Disposition - Plan for ED Patient: Instructions: FLANK PAIN, Uncertain Cause, Bladder Infection, Female (Adult), KOLE SKIN INFECTION (Adult) Prescriptions: Smz/Tmp Ds [Bactrim Ds] 1 tab PO BID #10 tab Prescription Printed Nystatin/Triamcin Cream [Mycolog] 1 applic TOPICAL BID #1 tube Prescription Printed Phenazopyridine HCl [Pyridium] 200 mg PO BID PRN PRN #10 tab PRN Reason: Pain Prescription Printed Referrals: Regine Mas MD [Primary Care Provider] - 5-7 Days
[2019-01-17 00:02] VITALS: BP 128/66; PULSE 70; RESP 16; O2SAT 96
== END 2019-01-17 00:14 | disposition home or self-care (01) ==
LOC: ED 22:14
PROVIDERS: Emergency Provider Emergency Medicine; Family Provider Internal Medicine; PCP Internal Medicine
DX: N39.0 Urinary tract infection, site not specified (principal); B37.2 Candidiasis of skin and nail; E03.9 Hypothyroidism, unspecified; J45.909 Unspecified asthma, uncomplicated; K21.9 Gastro-esophageal reflux disease without esophagitis; Z79.51 Long term (current) use of inhaled steroids; Z79.84 Long term (current) use of oral hypoglycemic drugs; Z79.899 Other long term (current) drug therapy
CPT/HCPCS: 74176; 80048; 81001; 85025; 87077; 87086; 87088; 87186; 96361; 96365; 99285; J7030

== ENCOUNTER 2019-04-01 14:00 | Emergency (ER) | payer MEDICARE, MEDICAID, SELFPAY ==
[2019-04-01 14:06] VITALS: BP 115/79; PULSE 77; RESP 17; TEMP 36.8; O2SAT 97; BMI 31.1
--- NOTE | 2019-04-01 14:39 | RAD_ITS ---
STUDY: X-RAY - LEFT KNEE REASON FOR EXAM: Female, 83 years old. left knee gives out TECHNIQUE: 4 view(s) of the knee. COMPARISON: None. FINDINGS: Normal visualized distal femur. Normal visualized proximal tibia and fibula. Normal proximal tibiofibular articulation. Normal medial femorotibial compartment. Normal lateral femorotibial compartment. Normal patellofemoral articulation. There is a soft tissue prominence in the suprapatellar region suggesting a small volume joint effusion. The soft tissue structures are unremarkable. RAD/Knee 4 or More Views IMPRESSION: Small volume joint effusion. No demonstrated fracture. Electronically Signed: Luis Lindsay MD ([place]) at 15:11 EST , Service support ,
--- NOTE | 2019-04-01 15:34 | ED.VISSUMM ---
- ER Visit Summary Date of Service: 04/01/19 Chief Complaint: [Left knee pain and instability] History of Present Illness: The patient is a 83 F [presents the emergency department with complaint of feeling like her knees on a give out for the last month. Patient states intermittently will give out and she will feel like she is going to fall but has typically caught herself. Patient today was making her bed and her left knee buckled and she Fell into the bed but did not injure herself. Patient denies any other injury or trauma otherwise. She does complain of some pain with bearing weight. She does normally use a walker when she walks. Patient states that she was following up with her primary care physician next week and was been asked about getting a brace for it.] Physical Examination: [HEENT-PERRLA, EOMI. Cranial nerves II through XII grossly intact. TMs clear. Mucous membranes moist. No adenopathy. Cardiovascular-regular rate and rhythm without murmur or ectopy Lungs-clear to auscultation, chest wall stable without crepitus or subcu emphysema Abdomen-normoactive bowel sounds, soft, nontender, no rebound or rigidity, no peritoneal signs. Extremities-intact ?4, normal range of motion, normal pulses, atraumatic. Left knee-no external evidence of trauma. Patient has some mild tenderness just anterior to the patella and inferior to the patella. No obvious effusion noted. Ligamentously stable. Negative anterior and posterior drawer test noted.] Test Results: [X-rays of the left knee obtained showed a small effusion but otherwise nothing acute.] Emergency Department Course and Treatment: [She was given a knee immobilizer. Patient will follow-up with her orthopedic surgeon Dr. Royal.] Treatment Plan: [Follow-up with orthopedics in 3 to 5 days. Patient will be given a knee immobilizer for support. I suspect possibly ligamentous injury versus meniscal injury.] Disposition: [Discharged home in stable condition] Impression: [Left knee pain/sprain-suspect possible internal derangement] This note was generated with [employer] dictation software. It may contain incorrect words, spelling, and punctuation that were not noted in review of the chart prior to signing ED Disposition - Plan for ED Patient: Referrals: Regine Mas MD [Primary Care Provider] -
--- NOTE | 2019-04-01 15:37 | ED.DEP ---
ED Disposition - Plan for ED Patient: Instructions: KNEE PAIN, Meniscus Injury (Possible) Referrals: Regine Mas MD [Primary Care Provider] - Sharath Royal MD [STAFF PHYSICIAN] - 3-5 Days
[2019-04-01 16:01] VITALS: PULSE 70; RESP 18; O2SAT 98
== END 2019-04-01 16:02 | disposition home or self-care (01) ==
LOC: ED 14:54
PROVIDERS: Emergency Provider Emergency Medicine; PCP Internal Medicine
DX: S83.92XA Sprain of unspecified site of left knee, initial encounter (principal); J45.909 Unspecified asthma, uncomplicated; K21.9 Gastro-esophageal reflux disease without esophagitis; E11.9 Type 2 diabetes mellitus without complications; E03.9 Hypothyroidism, unspecified; Z79.51 Long term (current) use of inhaled steroids; Z79.84 Long term (current) use of oral hypoglycemic drugs; Z79.899 Other long term (current) drug therapy; X58.XXXA Exposure to other specified factors, initial encounter; Y93.9 Activity, unspecified; Y92.003 Bedroom of unspecified non-institutional (private) residence as the place of occurrence of the external cause; Y99.8 Other external cause status
CPT/HCPCS: 73564; 99284

== ENCOUNTER 2019-04-06 21:46 | Emergency (ER) | payer MEDICARE, MEDICAID, SELFPAY ==
[2019-04-06 21:47] VITALS: BP 149/116; PULSE 87; RESP 23; TEMP 36.9; O2SAT 96; BMI 31.0
--- NOTE | 2019-04-06 22:27 | EKG12_ITS ---
Test Reason : DIZZINESS Blood Pressure : / mmHG Vent. Rate : 075 BPM Atrial Rate : 075 BPM P-R Int : 200 ms QRS Dur : 076 ms QT Int : 404 ms P-R-T Axes : 012 065 018 degrees QTc Int : 451 ms Normal sinus rhythm Poor R wave progression Confirmed by MIGUEL SALEH, JONG ([id number]), senior editor MARU PACHECO ([id number]) on 04/10/2019 9:54:39 AM Referred By: GISELL Confirmed By:JONG RIVERA MD
--- NOTE | 2019-04-06 22:27 | CT_ITS ---
STUDY: CT BRAIN WITHOUT CONTRAST REASON FOR EXAM: Female, 83 years old. Dizziness for 2 hours. Elevated BGL RADIATION DOSAGE (If Supplied By Facility): CTDIvol = ( 44.99 ) mGy, DLP = ( 779.24 ) mGycm TECHNIQUE: Transaxial CT imaging of the brain was performed without administration of intravenous contrast material. Individualized dose optimization techniques were used for this CT. COMPARISON: No relevant priors. FINDINGS: Normal soft tissue structures. Normal calvarium. Normal size ventricles and extra-axial spaces for the patient''s age. Normal white matter tracts of the cerebral hemispheres. Normal basal ganglia and thalami. Normal brainstem. Normal cerebellum. There is no intracranial hemorrhage. There are no findings of an acute ischemic infarction. Normal visualized paranasal sinuses. CT/Brain/Head without Contrast IMPRESSION: No acute intracranial or calvarial abnormality. Electronically Signed: Costa Galindo DO at 23:30 EST Tel [phone], Service support ,
--- NOTE | 2019-04-06 22:33 | ED.VISSUMM ---
- ER Visit Summary Date of Service: 04/06/19 Chief Complaint: Lightheaded History of Present Illness: The patient is a 83 F with lightheadedness over the past 2 to 3 hours. Patient feels like she will pass out if she stands up. She had similar symptoms in the past which were associated with dehydration and high blood sugar. She checked her sugar and it was 246. She normally checks her blood sugar once a week and does not take insulin. Denies vertigo symptoms currently. Denies any vision changes, speech changes, facial droop, weakness, or numbness. Denies polyuria or polydipsia. Denies fevers or infectious symptoms or recent illness. Denies change in her medications. Denies chest pain, shortness of breath, abdominal pain, or GI symptoms. Physical Examination: Afebrile and vital signs unremarkable. Alert and oriented. No acute distress. Head and neck unremarkable. Heart regular. Lungs clear. Abdomen soft. Extremities nontender with no edema. Good strength and sensation, symmetric. Cranial nerves grossly intact. Test Results: EKG, chest x-ray, CT brain, labs, urinalysis pending. Emergency Department Course and Treatment: Patient presents with near syncope and elevated blood sugar, but has no other specific symptoms. Work-up as above. Patient was treated with IV fluids and we checked orthostatic vital signs. EKG showed sinus rhythm at a rate of 75 with no sign of ischemia or infarction pattern. Chest x-ray showed nothing acute. CT brain showed nothing acute. CBC normal. Glucose 232, BUN 25, creatinine 1.23. Urinalysis shows signs of infection. Cultures pending. Troponin normal. Orthostatics were positive. Patient received 2 L of IV fluids. She was treated with Keflex for her UTI. Cultures are pending. She has no signs of sepsis. She is able to ambulate and will be discharged home for outpatient care and follow-up. Return for any new or worsening issues. Treatment Plan: As above Disposition: Discharge Impression: 1. Dehydration 2. Hyperglycemia 3. UTI This note was generated with [employer] software. It may contain incorrect words, spelling, and punctuation that were not noted in review of the chart prior to signing ED Disposition - Plan for ED Patient: Referrals: Regine Mas MD [Primary Care Provider] -
--- NOTE | 2019-04-06 22:35 | RAD_ITS ---
STUDY: X-RAY CHEST REASON FOR EXAM: Female, 83 years old. Dizziness for 2 hours. TECHNIQUE: Single AP portable view of the chest. COMPARISON: November 02, 2017 FINDINGS: Marked elevation of the right hemidiaphragm unchanged from prior study. Lungs well expanded and free of infiltrate or mass. There is no demonstrated pleural abnormality. Normal size heart. Normal mediastinum and noah. Normal visualized pulmonary arteries. Normal visualized aortic arch and descending thoracic aorta. No visualized osseous changes. There is no demonstrated abnormality of the visualized soft tissue structures of the upper abdomen. RAD/Chest 1 View (Portable) IMPRESSION: No acute cardiopulmonary disease or interval change. Electronically Signed: Costa Galindo DO at 22:57 EST Tel [phone], Service support ,
[2019-04-06 22:52] VITALS: O2SAT 96
[2019-04-06] MEDS: 0.9% Normal Saline 1,000 ML 1000 ML IV (22:53)
[2019-04-06 22:55] LABS: Absolute Lymphocyte Count 1.93 X10^3/uL (0.83-4.51); Absolute Neutrophil Count 4.8 X10^3/uL (2.0-7.7); Basophil# 0.03 X10^3/uL; Basophil% 0.4 % (0-1); Eosinophil# 0.32 X10^3/uL; Eosinophils% 4.1 % (0-5); Hematocrit 41.9 % (37-47); Hemoglobin 13.8 g/dL (12.0-15.0); Lymphocyte # 1.93 X10^3/ul (4.0); Mean Corp Hgb Conc 32.9 g/dL (32-36); Mean Corpuscular Hgb 29.1 pg (27.0-32.0); Mean Corpuscular Volume 88.2 fL (81-99); Mean Platelet Vol. 10.7 fl (6.2-12.0); Monocyte# 0.63 X10^3/uL; Monocyte% 8.2 % (0-10); NRBC Flagged by Analyzer 0 % (0-5); Neutrophil # 4.78 X10^3/uL (2.7-7.7); Neutrophil % 61.9 % (47-70); Platelet Count 187 K/mm3 (150-450); RBC Distribution Width CV 13.7 % (11.6-14.6); RBC Distribution Width SD 44.4 fl (35.1-43.9); Red Blood Count 4.75 M/mm3 (4.2-5.4); White Blood Count 7.7 K/mm3 (4.4-11.0)
[2019-04-06 23:12] LABS: Anion Gap 5 (5-15); BUN 25 mg/dL (7-18); BUN/Creat Ratio 20.3 RATIO (10-20); Calcium,Total 9.5 mg/dL (8.5-10.1); Chloride 111 mmol/L (98-107); Creatinine, Serum 1.23 mg/dL (0.55-1.02); EST Glomerular Filtration Rate 45 mL/min (>60); Est Glom Filt Rate - Afr Amer 54 mL/min (>60); Estimated Creatinine Clearance 27.07 ml/min; Glucose 232 mg/dL (74-106); Potassium 4.1 mmol/L (3.5-5.1); Sodium Level 139 mmol/L (136-145)
[2019-04-07 00:01] VITALS: BP 100/72; BP 123/70; BP 134/61; PULSE 70; PULSE 75; PULSE 76
[2019-04-07 00:04] LABS: Mucous, Urine 0 SEEN /hpf (<or=2+)
[2019-04-07 00:09] LABS: Color, Urine Yellow (Yellow); Glucose, Dipstick Normal (Normal); Ketone-Dipstick Negative (Negative); Leukocyte Esterase-Dipstick 100 /ul (Negative); Nitrite-Dipstick Positive (Negative); Occult Blood-Urine 25 /ul (Negative); Protein-Dipstick Negative (Negative); Specific Gravity, Urine 1.025 (1.002-1.030); Urine Bilirubin Dipstick Negative (Negative); Urine Clarity Clear (Clear); Urine Urobilinogen Normal (Normal)
[2019-04-07 00:20] LABS: White Blood Cells 5-10 SEEN /hpf (0-5)
[2019-04-07 00:21] LABS: Bacteria 1+ /hpf (None Seen); Red Blood Cells-Urine 0 SEEN /hpf (0-5); Squamous Epithelial Cells - UA 0-5 SEEN /hpf (5-10)
--- NOTE | 2019-04-07 00:30 | ED.DEP ---
ED Disposition - Plan for ED Patient: Instructions: NEAR SYNCOPE, Unknown Prescriptions: Cephalexin [Keflex] 500 mg PO Q6 #28 cap Prescription Printed Referrals: Regine Mas MD [Primary Care Provider] -
[2019-04-07] MEDS: 0.9% Normal Saline 1,000 ML 999 ML IV (01:03)
[2019-04-07] MEDS: Cephalexin 250 MG Capsule 500 MG PO (01:04)
[2019-04-07 02:00] VITALS: BP 134/73; PULSE 67; RESP 18; O2SAT 98
== END 2019-04-07 02:06 | disposition home or self-care (01) ==
LOC: ED 22:41
PROVIDERS: Emergency Provider Emergency Medicine; PCP Internal Medicine
DX: E86.0 Dehydration (principal); N39.0 Urinary tract infection, site not specified; E11.65 Type 2 diabetes mellitus with hyperglycemia; K21.9 Gastro-esophageal reflux disease without esophagitis; J45.909 Unspecified asthma, uncomplicated
CPT/HCPCS: 70450; 71045; 80048; 81001; 84484; 85025; 87077; 87086; 87088; 87186; 93005; 96360; 96361; 99285; J7030

== ENCOUNTER 2021-07-24 04:54 | Emergency (ER) | payer MEDICARE, MEDICAID, SELFPAY ==
[2021-07-24 04:55] VITALS: BP 120/88; PULSE 79; RESP 18; TEMP 36.4; BMI 28.0
--- NOTE | 2021-07-24 05:15 | RAD_ITS ---
STUDY: X-RAY - PELVIS AND RIGHT HIP REASON FOR EXAM: Female, 85 years old. pain TECHNIQUE: 3 views of the pelvis and hip. COMPARISON: None. FINDINGS: No fracture demonstrated. Femoral heads are normal contour. Mild degenerative changes of both hips. No dislocation. Stool obscures sacrum. RAD/HIP, UNI W/ Pelvis 2-3 Views IMPRESSION: No evidence of fracture. Mild degenerative changes. Electronically Signed: Judie Lancaster MD at 6:00 EDT ,
[2021-07-24] MEDS: Morphine 2 MG/ML Syringe IV (05:22)
[2021-07-24] MEDS: Ondansetron 4 MG/2 ML Vial IV (05:22)
--- NOTE | 2021-07-24 07:29 | EDS_ITS ---
HPI History of Present Illness Chief Complaint: Fall Narrative Narrative: Patient is an 85-year-old female who lives at home alone. She states she ambulates with a walker. She states she got up this morning to use the bathroom and lost her balance and fell landing on her right side. She denies striking her head or any loss of consciousness or blood thinner use. She states she was on the ground for approximate 1 hour prior to contacting EMS. She states that this time she has pain in her right hip and does not feel like she could ambulate secondary to this. She is concerned she may have a broken hip and therefore comes in for evaluation. PFSH PFSH Home Medications albuterol sulfate 2.5 mg inhalation Q6H PRN PRN Shortness Of Breath 12/21/15 [History Last Taken 11/02/17] dicyclomine 10 mg capsule 10 mg PO TIDAC PRN Diarrhea/Loose Stools 12/21/15 [History Last Taken 11/02/17] ergocalciferol (vitamin D2) 1,250 mcg (50,000 unit) capsule (Vitamin D2) 50 mcg PO MOFR 12/21/15 [History Last Taken 11/01/17] fluticasone propionate 50 mcg/actuation nasal spray,suspension 1 spray DAILY 12/21/15 [History Last Taken Unknown] glimepiride 1 mg tablet 1 mg PO DAILY 12/21/15 [History Last Taken 11/02/17] hydroxychloroquine 200 mg tablet 200 mg PO BIDCM Sarcoidosis 12/21/15 [History Last Taken 11/02/17] levothyroxine 50 mcg tablet 50 mcg PO DAILY hypothyroid 12/21/15 [History Last Taken 11/02/17] pantoprazole 40 mg tablet,delayed release 40 mg PO DAILY GERD 12/21/15 [History Last Taken 11/02/17] albuterol sulfate 90 mcg/actuation aerosol inhaler (Ventolin HFA) 2 puff IH Q4H PRN PRN Sob &/Or Wheezing 11/02/17 [History Last Taken Unknown] fluticasone propionate 44 mcg/actuation HFA aerosol inhaler (Flovent HFA) 2 puff inhalation BID 11/02/17 [History Last Taken 11/02/17] nystatin-triamcinolone 100,000 unit/g-0.1 % topical cream 1 applic topical BID #1 tube 01/16/19 [Rx Last Taken Unknown] cephalexin 500 mg capsule 500 mg PO Q6 #28 caps 04/07/19 [Rx Last Taken Unknown] Allergy/AdvReac Type Severity Reaction Status Date / Time acetaminophen [From Vicodin] AdvReac Other Verified 07/24/21 04:59 alendronate sodium AdvReac Nausea/Vom/ Verified 07/24/21 04:59 Diarrhea gabapentin [From Neurontin] AdvReac Other Verified 07/24/21 04:59 hydrocodone [From Vicodin] AdvReac Other Verified 07/24/21 04:59 naproxen [From Aleve] AdvReac Nausea/Vom/ Verified 07/24/21 04:59 Diarrhea BANDAIDES AdvReac Rash Uncoded 07/24/21 04:59 Social History Smoking Status: Never smoker ROS ROS ED Constitutional Constitutional ED: Denies chills or fever(s) Eyes Eyes: Denies change in vision ENT ENT ED: Denies sore throat Cardiovascular Cardiovascular: Denies chest pain Respiratory/Chest Respiratory/Chest: Denies cough or dyspnea Gastrointestinal Gastrointestinal: Denies abdominal pain, diarrhea, nausea or vomiting Genitourinary Genitourinary ED: Denies dysuria Musculoskeletal Musculoskeletal: Reports arthralgias and other Details: Positive right hip pain ; Denies back pain, myalgias or neck pain Integumentary Denies Abrasions or rash Neurologic Neurologic: Denies headache(s) Hematologic/Lymphatic Hematologic/Lymphatic: Denies easy bleeding or easy bruising EXAM Physical Exam Const Vital Signs: 07/24/21 04:55 07/24/21 05:00 Temperature 97.5 F L Temperature Source Temporal Pulse Rate 79 Respiratory Rate 18 Respiratory Effort Normal Non-Labored Blood Pressure 120/88 H Blood Pressure Mean 98 Oxygen Delivery Method Room Air Positive well nourished and well developed General Appearance ED: well developed HEENT Reports moist mucous membranes HEENT Narrative: No signs of depressed or basilar skull fracture Eyes PERRL and EOMs intact bilaterally Neck supple Neck Narrative: No bony deformity or step-off of the cervical spine no midline pain with palpation Chest Wall palpation of chest normal Resp normal respiratory effort and clear to auscultation bilaterally Cardio regular rate and regular rhythm GI normal to inspection, nondistended, normoactive bowel sounds, non-tender, non- distended and no masses GI Narrative: No voluntary guarding or rigidity no pulsatile mass Auscultation: normoactive bowel sounds Palpation: soft Extremity Extremity Narrative: Pelvis is stable there is no shortening or external rotation of either lower extremity. There is pain with palpation of the right hip at the greater trochanter region without obvious bony deformity or joint effusion. Active and passive range of motion is decreased secondary to pain. Patient can lift both upper extremities without difficulty. Neuro oriented x3 and CN's II-XII intact bilaterally Sensorium / Orientation: alert Psych mental status grossly normal Skin no rashes or lesions noted Skin Narrative: No overlying abrasions or ecchymosis MDM MDM MDM Narrative Medical decision making narrative: Present to the ER with report of mechanical fall. She did not strike her head or have loss of consciousness nor is she on blood thinners so I felt no need for head CT. Also as she reported a mechanical fall did not feel there is need for cardiac or syncope work-up. Moreover patient states she was only on the ground for 1 hour and therefore do not feel there is need for lab work to check for rhabdomyolysis. as patient reported pain in the right hip there is concern for fracture so an x-ray was obtained. X-ray revealed no acute fracture or dislocation. Patient was medicated with IV morphine and did report improvement of pain. She was given a walker and was able to stand and walk a few steps but reported pain with doing so. At this time she has demonstrated that she is able to bear weight and ambulate and the x-ray reveals no acute fracture which is consistent with this. For the reasons discussed above I do not feel there is need for medical work-up or medical admission. The patient states that she does not believe she will do well at home as she does not think she will be able to climb the stairs to use her restroom. Therefore at this time the patient will be signed out to Dr. Schneider while social work consult and physical therapy consult are pending. Radiography Diagnostic Testing: Clinical Impression(s) from Imaging Studies Hip/Pelvis X-Ray 07/24/21 05:15 IMPRESSION: No evidence of fracture. Mild degenerative changes. Electronically Signed: Judie Lancaster MD at 6:00 EDT , X-ray of the right hip with 1 view pelvis as interpreted by the emergency medicine physician reveals no acute fracture or dislocation Discharge Plan Triage Chief Complaint: Fall ED Provider: José Cain Dx/Rx/DC Orders Clinical Impression: Accidental fall, Contusion of right hip Prescriptions: No Action albuterol sulfate 2.5 MG/3 ML Vial.Neb. 2.5 mg inhalation Q6H PRN PRN (Reason: Shortness Of Breath) hydroxychloroquine 200 MG tablet 200 mg PO BIDCM dicyclomine 10 MG capsule 10 mg PO TIDAC PRN (Reason: Diarrhea/Loose Stools) glimepiride 1 MG tablet 1 mg PO DAILY levothyroxine 50 MCG tablet 50 mcg PO DAILY pantoprazole 40 MG tablet 40 mg PO DAILY ergocalciferol (vitamin D2) [Vitamin D2] 50,000 UNIT capsule 50 mcg PO MOFR fluticasone propionate 1 SPRAY Nasal.Sry 1 spray NASAL DAILY albuterol sulfate [Ventolin HFA] 18 GM Hfa.Aer.Ad 2 puff IH Q4H PRN PRN (Reason: Sob &/Or Wheezing) fluticasone propionate [Flovent HFA] 1 INHALER inhaler 2 puff inhalation BID nystatin-triamcinolone 1 APPLIC cream 1 applic topical BID Qty: 1 0RF cephalexin 500 MG capsule 500 mg PO Q6 Qty: 28 0RF Primary Care Provider: Regine Mas Referrals: Regine Mas MD [Primary Care Provider] -
--- NOTE | 2021-07-24 10:45 | CM.ED ---
Addendum entered by Aye Oro 07/24/21 11:51: CARMELO received call from Zakiya with [facility] stating they can accept pt and will see pt Wednesday. Zakiya states she will reach out to pt. Addendum entered by Aye Oro 07/24/21 11:43: SW updated MD Schneider on recommendation for C. SW placed order for [facility] PT. Aye KAPLAN, AUTOMATIC STEEL TIE ADJUSTER Addendum entered by Aye Oro 07/24/21 11:32: PT updated this worker that pt can return home with [facility] - PT. SW in to speak with pt. Pt confirms that she was told she can go home and agreeable to returning home. Pt also agreeable to [facility] for PT. Pt states that she currently receives aide services through [place] [facility] and the aide comes out 3x a week for three hours. Patient was provided a list of the post-acute providers that are consistent with the patient?s preferred geographic area and care needs, and includes quality and resource use data. Pt agreeable to [facility] for home PT. CARMELO placed a call to [facility] and left message for Zakiya regarding referral. Aye KAPLAN, AUTOMATIC STE[employer] ADJUSTER Original Note: Social Work Note CARMELO placed a call to PT and spoke with Gayatri and informed her of PT consult and that pt will need to be seen. CARMELO in to speak with pt. SW updated pt that PT will evaluate pt and determine recommendations on discharge. Pt states that she wants to go home. SW informed pt that it depends on how pt does with PT. PT states understanding. Aye KAPLAN, AUT[employer]AT[employer] ADJUSTER
[2021-07-24 12:12] VITALS: BP 124/88; PULSE 76; RESP 15; O2SAT 95
--- NOTE | 2021-07-25 14:33 | CM.ED ---
Social Work Note CARMELO received call from Zakiya at [facility] stating she spoke with pt and pt is stating that she cannot walk, sitting in her depends and [facility] cannot see until Wednesday for PT. Zakiya says that pt needs a Bedside Commode and pt has not been able to get one. CARMELO informed Zakiya that pt will need to go through her PCP for script. CARMELO placed a call to [facility] and spoke with Ngozi on the coverage line. Ngozi states that pt has [facility] [place] ([phone]) through [facility]. Pt also has Personal Care through [facility] ,, and Wednesday for 3 hours a day, Meals delivery for 14 meals every two weeks and [facility] [employer]. CARMELO updated Ngozi that pt was in the [facility] ED yesterday and discharged home. CARMELO updated Ngozi on the concerns that [facility] is stating. CARMELO placed a call to [facility] and left message inquiring if pt's aide will be out to see pt today and what hours the aide will be there. CARMELO then placed a call to pt. Pt states that she is doing not bad. Pt state that her aide came out to her house today and is currently out getting her bedside commode. Pt states that her aide is there until 3:15pm today. Pt states that her aide is Narendra and she is doing some other things for pt. Pt states that her pharmacist is also currently at her home and making sure that her medications got delivered through [facility]. Pt states that she has no concerns and that she has no pain right now. Pt states that she has two neighbors that are able to assist if she needs it. CARMELO updated Zakiya with [facility]. Zakiya states that she called Dr. Mas's nurse who also called Jodi. The BOOK OR SCRIPT EDITOR said that pt has been walking around today and is doing ok. CARMELO then received call from Grazyna at [facility] stating pt's aide is at pt's home right now. Grazyna states they are also going to go out tomorrow and see pt again. Grazyna states pt usually has no problems. Aye Oro NETWORKER, MARKET RELATIONSHIP MANAGER
== END 2021-07-24 12:56 | disposition home or self-care (01) ==
PROVIDERS: Emergency Provider Emergency Medicine; PCP Internal Medicine; Visit Provider Emergency Medicine
DX: S70.01XA Contusion of right hip, initial encounter (principal); Y93.89 Activity, other specified; Y99.9 Unspecified external cause status; W19.XXXA Unspecified fall, initial encounter; Y92.9 Unspecified place or not applicable
CPT/HCPCS: 73502; 96374; 96375; 97162; 99285; A4216; J2405

== ENCOUNTER 2021-07-29 18:00 | Outpatient (RCR) | payer MEDICARE, MEDICAID, SELFPAY ==
[2021-07-29 18:12] LABS: Color, Urine Yellow (Yellow); Glucose, Dipstick Normal (Normal); Ketone-Dipstick Negative (Negative); Leukocyte Esterase-Dipstick 500 /ul (Negative); Nitrite-Dipstick Positive (Negative); Occult Blood-Urine 50 /ul (Negative); Protein-Dipstick 30 mg/dl (Negative); Urine Bilirubin Dipstick Negative (Negative); Urine Clarity Cloudy (Clear); Urine Urobilinogen Normal (Normal)
== END 2021-08-07 23:59 ==
LOC: HHLAB 18:00
PROVIDERS: PCP Internal Medicine; Visit Provider Internal Medicine
DX: N39.0 Urinary tract infection, site not specified (principal)
CPT/HCPCS: 81002; 87077; 87086; 87088; 87186

== ENCOUNTER 2021-08-04 02:01 | Inpatient (IN) | payer MEDICARE, MEDICAID, SELFPAY ==
[2021-08-04] VITALS (20 sets, daily range): BP systolic 99–148; BP diastolic 46–74; PULSE 87–121; RESP 12–18; TEMP 36.4–37.2; O2SAT 92–98; BMI 27.8
--- NOTE | 2021-08-04 02:35 | EKG12_ITS ---
Test Reason : WEAKNESS Blood Pressure : / mmHG Vent. Rate : 097 BPM Atrial Rate : 097 BPM P-R Int : 166 ms QRS Dur : 074 ms QT Int : 340 ms P-R-T Axes : -25 -10 099 degrees QTc Int : 431 ms Normal sinus rhythm Low voltage QRS Nonspecific ST and T wave abnormality Abnormal ECG Confirmed by MIGUEL SALEH, JONG ([id number]), state editor MARU PACHECO ([id number]) on 08/05/2021 8:28:48 AM Referred By: SUE Confirmed By:JONG RIVERA MD
--- NOTE | 2021-08-04 02:35 | CT_ITS ---
We are attempting to reach an attending provider to discuss findings. An addendum with communication details will be sent when the communication is complete. STUDY: CT ABDOMEN AND PELVIS WITHOUT CONTRAST REASON FOR EXAM: Female, 85 years old. Abd pain, nausea, hernia -- PO Contrast RADIATION DOSAGE (If Supplied By Facility): CTDIvol = ( 8.35 ) mGy, DLP = ( 514.30 ) mGycm TECHNIQUE: Transaxial 2.5 mm images were obtained from the dome of the diaphragm to the symphysis pubis with oral contrast, and without intravenous contrast. Sagittal and coronal images were reconstructed. This examination is limited for the evaluation of gastrointestinal, solid organs and vascular structures due to the lack of intravenous and oral contrast. Individualized dose optimization techniques were used for this CT. COMPARISON: CT abdomen pelvis 01/16/2019. 12/21/2015. FINDINGS: Stable elevation right hemidiaphragm nonspecific minimal compression of parenchyma.. The visualized portions of the heart are within normal limits. Normal liver. Absent gallbladder and dilated extrahepatic biliary system tapering to normal size at the pancreas head level. Normal spleen. There is diffuse atrophy of the pancreas. Normal bilateral adrenal glands. Normal right kidney. Normal left kidney. Duodenal diverticulum containing contrast in a dependent attenuation 0.6 x 0.2 x 0.2 cm which may be fluid particle, medication or calcification. This was not seen on previous exam. Contrast and air distention of stomach. There is small bowel obstruction at the entry and exit site of the large right periumbilical complex hernia containing fat, fat stranding. This is at the level just superior to the prior abdominal wall plasty image [id number] series 2. Hernia opening of 2.5 cm at the entry site of small bowel. Nondistended short segment small bowel within the hernia sac. Contrast and fluid distention of small bowel up to 3.2 cm proximal to the hernia, decompressed distal small bowel. . Mild hyperattenuation within the lumen of the colon possibly due to previous contrast application or dense food particle. There is adjacent fat stranding to the colon at the level of the hernia with tethering. The colon distal to the hernia level is decompressed. The appendix is visualized and appears normal. There is diffuse atherosclerotic calcification of the abdominal aorta, without a demonstrated aneurysm. Normal inferior vena cava. Normal retroperitoneum. Normal urinary bladder. There is absence of the uterus consistent with a prior hysterectomy. Normal abdominal wall. There are diffuse degenerative changes of the visualized lumbar spine and osteopenia. CT/Abdomen/Pel W ORAL Cont Only IMPRESSION: Small bowel obstruction just superior to the previous abdominal wall plasty in the right periumbilical hernia containing fat and fat stranding, incarceration and strangulation early for maybe present. Suspect mild tethering of transverse colon at the hernia site. No colonic obstruction detected. Duodenal diverticulum appears stable. There is possibly a dependent calculus or medication/food particle. Other nonacute findings as outlined above. Electronically Signed: Lindsey Brito MD at 5:42 EDT Reading Location ID and State: , Service support ,
--- NOTE | 2021-08-04 02:36 | RAD_ITS ---
STUDY: X-RAY CHEST REASON FOR EXAM: Female, 85 years old. weakness, wheezing/sob TECHNIQUE: Single AP portable view of the chest. COMPARISON: 04/06/2019 FINDINGS: Stable elevation of the right hemidiaphragm to the hilum level, scattered calcified tiny granulomata in the right lung. There is no focal parenchymal abnormality. There is no demonstrated pleural abnormality. Normal size heart. Normal mediastinum and noah. Normal visualized pulmonary arteries. Normal visualized aortic arch and descending thoracic aorta. There is demineralization of the osseous structures. There is degenerative osteoarthritis of the bilateral shoulders. There is no demonstrated abnormality of the visualized soft tissue structures of the upper abdomen. RAD/Chest 1 View (Portable) IMPRESSION: Stable nonacute findings as above. No acute cardiopulmonary disease. No significant interval change. Electronically Signed: Lindsey Brito MD at 3:02 EDT Reading Location ID and State: , Service support ,
--- NOTE | 2021-08-04 02:37 | EX.ED.DYSGE1 ---
HPI History of Present Illness Chief Complaint: Weakness Informant: patient Onset/Context/Timing Onset: Days (10) Context: Gradual Onset Timing: Continuous Quality: weak Location: all over Current Severity: Severe Maximum Severity: Severe Worsened by: nothing Relieved by: nothing Associated Symptoms Associated Symptoms: constipated, abd pain, nausea, wheezing off and on, continued R hip pain Narrative Narrative: Patient seen here about 10 days ago because of a fall onto her right hip. X-rays were negative she was able to bear weight and walk with a walker, therapy and social work saw her and deemed her stable for discharge and home health which was done, patient states they have been working with her at home but she continues to feel more and more weak all over. Tonight she slipped out of her recliner onto the floor without any acute injury, unable to get up and called EMS because of this and when they discovered how weak she was, she was agreeable to come back to the hospital. She has had continued pain in her right hip, laterally and into the anterior groin, hurts to walk, but she has been able. She denies any fevers or chills but states that ever since she has felt weak she has been constipated and feeling like she needs to have a bowel movement but unable, and she has had pain in her abdomen. She has a hernia there that has been there since her gallbladder was taken out remotely. She states she has been having asthma/wheezing off-and-on, but no cough, chest pain, or severe dyspnea. She has been nauseated but no vomiting. Urinating okay. Blood sugars have been higher than usual around 180, she usually is below 150 and she is a type II diabetic on medication. [facility] Medical History (Updated 08/04/21 @ 05:[address] Sharath Nevarez MD) Asthma GERD (gastroesophageal reflux disease) Hypothyroidism Sarcoidosis Type 2 diabetes mellitus Home Medications albuterol sulfate 2.5 mg inhalation Q6H PRN PRN Shortness Of Breath 12/21/15 [History Last Taken 11/02/17] dicyclomine 10 mg capsule 10 mg PO TIDAC PRN Diarrhea/Loose Stools 12/21/15 [History Last Taken 11/02/17] ergocalciferol (vitamin D2) 1,250 mcg (50,000 unit) capsule (Vitamin D2) 50 mcg PO QMONTH 12/21/15 [History Last Taken 11/01/17] fluticasone propionate 50 mcg/actuation nasal spray,suspension 1 spray DAILY 12/21/15 [History Last Taken Unknown] glimepiride 1 mg tablet 1 mg PO DAILY 12/21/15 [History Last Taken 11/02/17] hydroxychloroquine 200 mg tablet 200 mg PO BIDCM Sarcoidosis 12/21/15 [History Last Taken 11/02/17] levothyroxine 50 mcg tablet 50 mcg PO DAILY hypothyroid 12/21/15 [History Last Taken 11/02/17] pantoprazole 40 mg tablet,delayed release 40 mg PO DAILY GERD 12/21/15 [History Last Taken 11/02/17] albuterol sulfate 90 mcg/actuation aerosol inhaler (Ventolin HFA) 2 puff IH Q4H PRN PRN Sob &/Or Wheezing 11/02/17 [History Last Taken Unknown] fluticasone propionate 44 mcg/actuation HFA aerosol inhaler (Flovent HFA) 2 puff inhalation BID 11/02/17 [History Last Taken 11/02/17] nystatin-triamcinolone 100,000 unit/g-0.1 % topical cream 1 applic topical BID #1 tube 01/16/19 [Rx Last Taken Unknown] cephalexin 500 mg capsule 500 mg PO Q6 #28 caps 04/07/19 [Rx Last Taken Unknown] Allergy/AdvReac Type Severity Reaction Status Date / Time acetaminophen [From Vicodin] AdvReac Other Verified 08/04/21 02:06 alendronate sodium AdvReac Nausea/Vom/ Verified 08/04/21 02:06 Diarrhea gabapentin [From Neurontin] AdvReac Other Verified 08/04/21 02:06 hydrocodone [From Vicodin] AdvReac Other Verified 08/04/21 02:06 naproxen [From Aleve] AdvReac Nausea/Vom/ Verified 08/04/21 02:06 Diarrhea BANDAIDES AdvReac Rash Uncoded 07/24/21 04:59 Social History Smoking Status: Never smoker ROS ROS ED Constitutional Constitutional ED: Reports weakness; Denies chills or fever(s) Eyes Eyes: Denies change in vision or diplopia ENT ENT ED: Denies rhinorrhea or sore throat Cardiovascular Cardiovascular: Denies chest pain or palpitations Respiratory/Chest Respiratory/Chest: Reports wheezing; Denies cough or dyspnea Gastrointestinal Gastrointestinal: Reports abdominal pain, constipation and nausea; Denies diarrhea or vomiting Genitourinary Genitourinary ED: Denies dysuria or hematuria Musculoskeletal Musculoskeletal: Reports as per HPI and extremity pain; Denies back pain or neck pain Integumentary Denies abscess or rash Neurologic Neurologic: Denies headache(s), paresthesias or weakness Psychiatric Psychiatric: Denies anxiety or suicidal thoughts EXAM Physical Exam Const Vital Signs: 08/04/21 02:02 08/04/21 02:09 08/04/21 05:28 Temperature 97.8 F 98.0 F Temperature Source Oral Temporal Pulse Rate 121 H 87 Respiratory Rate 15 14 Respiratory Effort Normal Non-Labored Respiratory Pattern Normal Blood Pressure 112/55 L 99/46 L Blood Pressure Mean 74 63 Pulse Ox 96 92 Oxygen Delivery Method Room Air Room Air 08/04/21 06:34 Temperature Temperature Source Pulse Rate 92 Respiratory Rate 14 Respiratory Effort Respiratory Pattern Blood Pressure 124/62 H Blood Pressure Mean 82 Pulse Ox 98 Oxygen Delivery Method Room Air Positive well nourished and well developed General Appearance ED: well developed and NAD HEENT Reports moist mucous membranes normocephalic and atraumatic Eyes PERRL and EOMs intact bilaterally Neck full ROM, no lymphadenopathy, supple and no JVD Resp normal respiratory effort and clear to auscultation bilaterally Effort and Inspection: able to speak in complete sentences Cardio regular rate, regular rhythm and no murmurs Rate: tachycardic GI GI Narrative: Soft benign abdomen except for fairly large 8-10 cm diameter ventral hernia just right of the umbilicus and also including it, which is tender and has some areas of erythema but the entire area is not erythematous. It is firm and not reducible, tender. No guarding or rebound tenderness Auscultation: normoactive bowel sounds Palpation: soft Back/Spine no CVA tenderness General Back: other FROM Extremity normal to inspection Extremity Narrative: Mildly tender right greater trochanter, some anterior groin pain with internal/external rotation but nothing major. No shortening or gross deformity. General Extremety ED: Yes tenderness; Negative for edema or pulses abnormal General Extremity: Negative for edema or pulses abnormal Neuro oriented x3, CN's II-XII intact bilaterally and no sensory deficits noted Neuro Narrative: Moves all 4 extremities equally. Sensorium / Orientation: awake and alert Motor Exam: general weakness Skin no rashes or lesions noted and no wounds MDM MDM MDM Narrative Medical decision making narrative: Ordered an oral contrasted as well as IV CT out of concern for this hernia, since it has been there according to the patient's symptoms for over 1 week. Since her creatinine is elevated likely due to some dehydration, we held the IV contrast and just performed it under oral contrast, and at 0540, radiology called with a report suggesting the possibility of an incarcerated hernia with an associated small bowel obstruction. I contacted surgery Dr. Escobar, in addition to providing the patient with IV Rocephin covering for the possibility of urinary tract infection. Unknown exact etiology of the patient's generalized weakness, she does have significant leukocytosis hence the antibiotics and consideration of a urinary infection here. Surgery evaluated in the emergency department and is taking the patient emergently to the operating room. We placed an NG tube here in the ER, and immediate 250-300 cc of nonbloody bilious fluid returned. On my interpretation, 1 view KUB shows good NG tube placement in the stomach. Patient remains clinically and hemodynamically stable. Will discuss with hospitalist team. Lab Data Attestation: I reviewed the patient's lab results. Labs: Laboratory Results - last 24 hr 08/04/21 08/04/21 08/04/21 02:15 02:15 03:00 WBC 24.7 H RBC 4.64 Hgb 13.4 Hct 41.8 MCV 90.1 MCH 28.9 MCHC 32.1 RDW Std Deviation 45.1 H RDW Coeff of Julián 13.7 Plt Count 453 H MPV 10.5 Immature Gran % (Auto) 4.900 H Neut % (Auto) 80.5 H Lymph % (Auto) 7.9 L [place] % (Auto) 6.2 Eos % (Auto) 0.4 Baso % (Auto) 0.1 Absolute Neuts (auto) 19.8 H Absolute Lymphs (auto) 1.94 Nucleated RBC % 0 Diff Path Review May foll Platelet Estimate SLT INC Sodium Cancelled 135 L Potassium Cancelled 4.8 Chloride Cancelled 105 Carbon Dioxide Cancelled 21.0 Anion Gap Cancelled 9 BUN Cancelled 51 H Creatinine Cancelled 1.56 H Estim Creat Clear Calc Cancelled 20.62 Est GFR (MDRD) Af Amer Cancelled 41 L Est GFR (MDRD) Non-Af Cancelled 34 L BUN/Creatinine Ratio Cancelled 32.7 H Glucose Cancelled 157 H Lactic Acid Calcium Cancelled 10.1 Total Bilirubin Cancelled 0.40 AST Cancelled 27 ALT Cancelled 24 Alkaline Phosphatase Cancelled 78 Troponin I High Sens Cancelled 17 Total Protein Cancelled 7.3 Albumin Cancelled 2.4 L Globulin Cancelled 4.9 H Albumin/Globulin Ratio Cancelled 0.5 L Lipase Cancelled Urine Color Urine Clarity Urine pH Ur Specific [place] Urine Protein Urine Glucose (UA) Urine Ketones Urine Occult Blood Urine Nitrite Urine Bilirubin Urine Urobilinogen Ur Leukocyte Esterase Urine RBC Urine WBC Ur Squamous Epith Cells Urine Bacteria Urine Mucus 08/04/21 08/04/21 08/04/21 03:05 05:21 06:01 WBC RBC Hgb Hct MCV MCH MCHC RDW Std Deviation RDW Coeff of Julián Plt Count MPV Immature Gran % (Auto) Neut % (Auto) Lymph % (Auto) [place] % (Auto) Eos % (Auto) Baso % (Auto) Absolute Neuts (auto) Absolute Lymphs (auto) Nucleated RBC % Diff Path Review Platelet Estimate Sodium Potassium Chloride Carbon Dioxide Anion Gap BUN Creatinine Estim Creat Clear Calc Est GFR (MDRD) Af Amer Est GFR (MDRD) Non-Af BUN/Creatinine Ratio Glucose Lactic Acid 1.4 Calcium Total Bilirubin AST ALT Alkaline Phosphatase Troponin I High Sens 17 Total Protein Albumin Globulin Albumin/Globulin Ratio Lipase Urine Color Yellow Urine Clarity Cloudy Urine pH 5.0 Ur Specific [place] 1.025 Urine Protein 30 H Urine Glucose (UA) Normal Urine Ketones 5 H Urine Occult Blood 25 H Urine Nitrite Negative Urine Bilirubin Negative Urine Urobilinogen Normal Ur Leukocyte Esterase 500 H Urine RBC 0 SEEN Urine WBC 50-100 SEEN Ur Squamous Epith Cells 0-5 SEEN Urine Bacteria 2+ Urine Mucus 0 SEEN Radiography Chest X-Ray - ED: 1 View, Read by ED Physician, No Acute Disease and Chronic Changes Diagnostic Testing: Clinical Impression(s) from Imaging Studies Abdomen CT 08/04/21 02:35 IMPRESSION: Small bowel obstruction just superior to the previous abdominal wall plasty in the right periumbilical hernia containing fat and fat stranding, incarceration and strangulation early for maybe present. Suspect mild tethering of transverse colon at the hernia site. No colonic obstruction detected. Duodenal diverticulum appears stable. There is possibly a dependent calculus or medication/food particle. Other nonacute findings as outlined above. Electronically Signed: Lindsey Brito MD at 5:42 EDT , ADDENDUM: 08/04/21 0550 IMPRESSION: Small bowel obstruction just superior to the previous abdominal wall plasty in the right periumbilical hernia containing fat and fat stranding, incarceration and strangulation early for maybe present. Suspect mild tethering of transverse colon at the hernia site. No colonic obstruction detected. Duodenal diverticulum appears stable. There is possibly a dependent calculus or medication/food particle. Other nonacute findings as outlined above. N.B. : The above Results were Read Back by Lindsey Brito MD to Sharath Nevarez MD, and understanding confirmed on 08/04/2021 05:43:49 (ET). Electronically Signed: Lindsey Brito MD at 5:42 EDT , Chest X-Ray 08/04/21 02:36 IMPRESSION: Stable nonacute findings as above. No acute cardiopulmonary disease. No significant interval change. Electronically Signed: Lindsey Brito MD at 3:02 EDT , Rhythm Strip Rhythm Strip: Sinus Tach Rate: 116 Ectopy: None EKG Initial EKG: Attestation: I personally reviewed and interpreted this EKG as follows: Interpretation: Sinus Rhythm, No Acute Injury Pattern and - (Q waves V1-V2) Prior EKG tracings: available for review Prior: Unchanged Critical Care Time Critical Care Time: Yes Critical care time (excluding procedures): 30-74 minutes (40 min), Including time spent:, Discussing w/Patient &/or Family/Sandwich Counter Attendant, Discussing w/Consultants, Arranging Admission or Transfer and Performing Direct Patient Care at Bedside Discharge Plan Dx/Rx/DC Orders Clinical Impression: Incarcerated ventral hernia, Complete small bowel obstruction, Urinary tract infection, Generalized weakness, Injury of right hip Disposition Disposition: Acute Care Hospital [facility]
[2021-08-04] MEDS: Ondansetron 4 MG/2 ML Vial IV ×2 (02:51→22:56)
[2021-08-04] MEDS: 0.9% Normal Saline 1,000 ML 125 ML IV ×3 (02:51→19:58)
[2021-08-04] MEDS: Morphine 2 MG/ML Syringe IV (02:53)
[2021-08-04 03:11] LABS: Absolute Lymphocyte Count 1.94 X10^3/uL (0.83-4.51); Absolute Neutrophil Count 19.8 X10^3/uL (2.0-7.7); Basophil# 0.03 X10^3/uL; Basophil% 0.1 % (0-1); Eosinophil# 0.11 X10^3/uL; Eosinophils% 0.4 % (0-5); Hematocrit 41.8 % (37-47); Hemoglobin 13.4 g/dL (12.0-15.0); Lymphocyte # 1.94 X10^3/ul (0.83-4.51); Lymphocyte % 7.9 % (19-41); Mean Corp Hgb Conc 32.1 g/dL (32-36); Mean Corpuscular Hgb 28.9 pg (27.0-32.0); Mean Corpuscular Volume 90.1 fL (81-99); Mean Platelet Vol. 10.5 fl (6.2-12.0); Monocyte# 1.54 X10^3/uL; Monocyte% 6.2 % (0-10); NRBC Flagged by Analyzer 0 % (0-5); Neutrophil # 19.83 X10^3/uL (2.7-7.7); Neutrophil % 80.5 % (47-70); POSITIVE DIFFERENTIAL YES; POSITIVE MORPHOLOGY YES; Platelet Count 453 K/mm3 (150-450); RBC Distribution Width CV 13.7 % (11.6-14.6); RBC Distribution Width SD 45.1 fl (35.1-43.9); Red Blood Count 4.64 M/mm3 (4.2-5.4); White Blood Count 24.7 K/mm3 (4.4-11.0)
[2021-08-04 03:20] LABS: Differential Indicated SCAN CRITERIA MET
[2021-08-04 03:24] LABS: ALB/GLOB Ratio 0.5 RATIO (0.9-2.4); AST(SGOT) 27 U/L (15-37); Alanine Aminotransfer ALT/SGPT 24 U/L (13-56); Albumin, Serum 2.4 g/dL (3.2-5.0); Alkaline Phosphatase 78 U/L (45-117); Anion Gap 9 (5-15); BUN 51 mg/dL (7-18); BUN/Creat Ratio 32.7 RATIO (10-20); Calcium,Total 10.1 mg/dL (8.5-10.1); Chloride 105 mmol/L (98-107); Creatinine, Serum 1.56 mg/dL (0.55-1.02); EST Glomerular Filtration Rate 34 mL/min (>60); Est Glom Filt Rate - Afr Amer 41 mL/min (>60); Estimated Creatinine Clearance 20.62 ml/min; Globulin 4.9 g/dL (2.2-4.2); Glucose 157 mg/dL (74-106); Potassium 4.8 mmol/L (3.5-5.1); Protein, Total 7.3 g/dL (6.4-8.2); Sodium Level 135 mmol/L (136-145); Troponin-I HS (w/2H Reflex) 17 pg/mL (3.0-54.0)
[2021-08-04 03:28] LABS: Platelet Estimate SLT INC (ADEQ)
[2021-08-04 03:31] LABS: Mucous, Urine 0 SEEN /hpf (<or=2+); Red Blood Cells-Urine 0 SEEN /hpf (0-5)
[2021-08-04 03:40] LABS: Color, Urine Yellow (Yellow); Glucose, Dipstick Normal (Normal); Ketone-Dipstick 5 mg/dl (Negative); Leukocyte Esterase-Dipstick 500 /ul (Negative); Nitrite-Dipstick Negative (Negative); Occult Blood-Urine 25 /ul (Negative); Protein-Dipstick 30 mg/dl (Negative); Specific Gravity, Urine 1.025 (1.002-1.030); Urine Bilirubin Dipstick Negative (Negative); Urine Clarity Cloudy (Clear); Urine Urobilinogen Normal (Normal)
[2021-08-04 03:54] LABS: Squamous Epithelial Cells - UA 0-5 SEEN /hpf (5-10); White Blood Cells 50-100 SEEN /hpf (0-5)
[2021-08-04 03:55] LABS: Bacteria 2+ /hpf (None Seen)
[2021-08-04 05:02] LABS: Reflex Troponin-HS? (from REC) Y
[2021-08-04] MEDS: Ceftriaxone 1 GM/50 ML BAG IV (05:48)
[2021-08-04 05:57] LABS: Troponin-I HS 17 pg/mL (3.0-54.0)
--- NOTE | 2021-08-04 06:04 | RAD_ITS ---
STUDY: X-RAY - ABDOMEN/PELVIS REASON FOR EXAM: Female, 85 years old. NG Insertion TECHNIQUE: Half chest half abdomen portable upright view. COMPARISON: CT abdomen and pelvis and chest x-ray 08/04/2021. FINDINGS: Enteric tube causing the gastric fundus with catheter tip in the gastric body. Stable elevation right hemidiaphragm. Air distention of upper abdominal small bowel There is no demonstrated free abdominal air. Osteopenia. RAD/Abdomen Single View (Portable) IMPRESSION: Enteric tube tip over the gastric body in good position. Small bowel ileus/obstruction. Electronically Signed: Lindsey Brito MD at 6:52 EDT Reading Location ID and State: , Service support ,
[2021-08-04] MEDS: Oxymetazoline 0.05% 1 SPRAY SPRAY.BTL 2 SPRAY NASAL (06:14)
[2021-08-04 06:38] LABS: Lactic Acid 1.4 mmol/L (0.4-1.9)
--- NOTE | 2021-08-04 06:52 | NURSING ---
SURGERY THEN [address] INCARCERATED VENTRAL HERNIA, UTI, GEN WEAKNESS
--- NOTE | 2021-08-04 06:56 | PCM.HP.STD ---
[facility] - General General Date of Admission: 08/04/21 Chief Complaint: Abdominal pain, hernia, irregular bowel habits HPI Narrative TARA GUPTA, is a 85 F who presents to [facility] with complaints of hip pain following a ground-level fall. However during her evaluation for her hip, she is noted to have a midline bulge that was partially erythematous and subsequent CT imaging was concerning for a bowel obstruction and a ventral hernia with possible early signs of strangulation. Additional significant findings include a leukocytosis of greater than 24,000. Therefore surgery was consulted for evaluation. Patient states that she has had this hernia for at least a year and a half. She has noted it growing progressively larger. She is unsure when it became stuck out. She does note that for the last 2 to 3 days her ability to take anything in orally has been severely limited as she simply does not have an appetite. He also notes that she has had a great difficulty with having a bowel movement for some time now. Patient states she lives alone and remains independent in her activities of daily living. Regarding her history of diabetes, she states that her blood sugars are normally well controlled less than 150, but lately have been over 200. Patient's past surgical history includes a laparoscopic cholecystectomy by Dr. Smiley couple years ago and then, more remotely, a section via lower midline laparotomy incision. [facility] Medical History (Updated 08/04/21 @ 06:59 by Steffi Sanches) Asthma Cholecystectomy planned GERD (gastroesophageal reflux disease) Hypothyroidism Sarcoidosis Type 2 diabetes mellitus Home Medications albuterol sulfate 2.5 mg inhalation Q6H PRN PRN Shortness Of Breath 12/21/15 [History Last Taken 11/02/17] dicyclomine 10 mg capsule 10 mg PO TIDAC PRN Diarrhea/Loose Stools 12/21/15 [History Last Taken 11/02/17] ergocalciferol (vitamin D2) 1,250 mcg (50,000 unit) capsule (Vitamin D2) 50 mcg PO QMONTH 12/21/15 [History Last Taken 11/01/17] fluticasone propionate 50 mcg/actuation nasal spray,suspension 1 spray DAILY 12/21/15 [History Last Taken Unknown] glimepiride 1 mg tablet 1 mg PO DAILY 12/21/15 [History Last Taken 11/02/17] hydroxychloroquine 200 mg tablet 200 mg PO BIDCM Sarcoidosis 12/21/15 [History Last Taken 11/02/17] levothyroxine 50 mcg tablet 50 mcg PO DAILY hypothyroid 12/21/15 [History Last Taken 11/02/17] pantoprazole 40 mg tablet,delayed release 40 mg PO DAILY GERD 12/21/15 [History Last Taken 11/02/17] albuterol sulfate 90 mcg/actuation aerosol inhaler (Ventolin HFA) 2 puff IH Q4H PRN PRN Sob &/Or Wheezing 11/02/17 [History Last Taken Unknown] fluticasone propionate 44 mcg/actuation HFA aerosol inhaler (Flovent HFA) 2 puff inhalation BID 11/02/17 [History Last Taken 11/02/17] nystatin-triamcinolone 100,000 unit/g-0.1 % topical cream 1 applic topical BID #1 tube 01/16/19 [Rx Last Taken Unknown] cephalexin 500 mg capsule 500 mg PO Q6 #28 caps 04/07/19 [Rx Last Taken Unknown] Allergy/AdvReac Type Severity Reaction Status Date / Time acetaminophen [From Vicodin] AdvReac Other Verified 08/04/21 02:06 alendronate sodium AdvReac Nausea/Vom/ Verified 08/04/21 02:06 Diarrhea gabapentin [From Neurontin] AdvReac Other Verified 08/04/21 02:06 hydrocodone [From Vicodin] AdvReac Other Verified 08/04/21 02:06 naproxen [From Aleve] AdvReac Nausea/Vom/ Verified 08/04/21 02:06 Diarrhea BANDAIDES AdvReac Rash Uncoded 07/24/21 04:59 Surgical History (Updated 08/04/21 @ 06:59 by Steffi Sanches) H/O: Social History Smoking Status: Never smoker Vital Signs Vital Signs Vital Signs: 08/04/21 02:02 08/04/21 02:09 08/04/21 05:28 Temperature 97.8 F 98.0 F Temperature Source Oral Temporal Pulse Rate 121 H 87 Respiratory Rate 15 14 Respiratory Effort Normal Non-Labored Respiratory Pattern Normal Blood Pressure 112/55 L 99/46 L Blood Pressure Mean 74 63 Pulse Ox 96 92 Oxygen Delivery Method Room Air Room Air 08/04/21 06:34 Temperature Temperature Source Pulse Rate 92 Respiratory Rate 14 Respiratory Effort Respiratory Pattern Blood Pressure 124/62 H Blood Pressure Mean 82 Pulse Ox 98 Oxygen Delivery Method Room Air Weight Weight: 147 lb 7.828 oz Body Mass Index (BMI) 27.8 Physical Exam Const alert and oriented x3 Constitutional Narrative: Disheveled appearance Resp normal respiratory effort GI GI Narrative: Nasogastric tube in place with bilious output (total volume of 500 mL at present). Abdomen minimally distended and generally soft. However just infraumbilical and laterally to the right patient has some erythematous changes overlying a firm bulge representing a incarcerated ventral hernia. Manual traction is applied and patient is quite tender with this manipulation. There is also minimal to no movement of the hernia contents. Results Lab / Micro Data Result Diagrams: 08/04/21 02:15 08/04/21 03:00 Labs: Laboratory Results - last 24 hr 08/04/21 02:15: WBC 24.7 H, RBC 4.64, Hgb 13.4, Hct 41.8, MCV 90.1, MCH 28.9, MCHC 32.1, RDW Std Deviation 45.1 H, RDW Coeff of Julián 13.7, Plt Count 453 H, MPV 10.5, Immature Gran % (Auto) 4.900 H, Neut % (Auto) 80.5 H, Lymph % (Auto) 7.9 L, [place] % (Auto) 6.2, Eos % (Auto) 0.4, Baso % (Auto) 0.1, Absolute Neuts (auto) 19.8 H, Absolute Lymphs (auto) 1.94, Nucleated RBC % 0, Diff Path Review May ana Platelet Estimate SLT INC 08/04/21 02:15: Sodium Cancelled, Potassium Cancelled, Chloride Cancelled, Carbon Dioxide Cancelled, Anion Gap Cancelled, BUN Cancelled, Creatinine Cancelled, Estim Creat Clear Calc Cancelled, Est GFR (MDRD) Af Amer Cancelled, Est GFR (MDRD) Non-Af Cancelled, BUN/Creatinine Ratio Cancelled, Glucose Cancelled, Calcium Cancelled, Total Bilirubin Cancelled, AST Cancelled, ALT Cancelled, Alkaline Phosphatase Cancelled, Troponin I High Sens Cancelled, Total Protein Cancelled, Albumin Cancelled, Globulin Cancelled, Albumin/Globulin Ratio Cancelled, Lipase Cancelled 08/04/21 03:00: Sodium 135 L, Potassium 4.8, Chloride 105, Carbon Dioxide 21.0, Anion Gap 9, BUN 51 H, Creatinine 1.56 H, Estim Creat Clear Calc 20.62, Est GFR (MDRD) Af Amer 41 L, Est GFR (MDRD) Non-Af 34 L, BUN/Creatinine Ratio 32.7 H, Glucose 157 H, Calcium 10.1, Total Bilirubin 0.40, AST 27, ALT 24, Alkaline Phosphatase 78, Troponin I High Sens 17, Total Protein 7.3, Albumin 2.4 L, Globulin 4.9 H, Albumin/Globulin Ratio 0.5 L 08/04/21 03:05: Urine Color Yellow, Urine Clarity Cloudy, Urine pH 5.0, Ur Specific [place] 1.025, Urine Protein 30 H, Urine Glucose (UA) Normal, Urine Ketones 5 H, Urine Occult Blood 25 H, Urine Nitrite Negative, Urine Bilirubin Negative, Urine Urobilinogen Normal, Ur Leukocyte Esterase 500 H, Urine RBC 0 SEEN, Urine WBC 50-100 SEEN, Ur Squamous Epith Cells 0-5 SEEN, Urine Bacteria 2+, Urine Mucus 0 SEEN 08/04/21 05:21: Troponin I High Sens 17 08/04/21 06:01: Lactic Acid 1.4 Rhythm Strip Rhythm Strip: Sinus Tach Rate: 116 Ectopy: None Radiology Impression Abdomen CT 08/04/21 02:35 IMPRESSION: Small bowel obstruction just superior to the previous abdominal wall plasty in the right periumbilical hernia containing fat and fat stranding, incarceration and strangulation early for maybe present. Suspect mild tethering of transverse colon at the hernia site. No colonic obstruction detected. Duodenal diverticulum appears stable. There is possibly a dependent calculus or medication/food particle. Other nonacute findings as outlined above. Electronically Signed: Lindsey Brito MD at 5:42 EDT Reading Location ID and State: , Service support , ADDENDUM: 08/04/21 [id number] IMPRESSION: Small bowel obstruction just superior to the previous abdominal wall plasty in the right periumbilical hernia containing fat and fat stranding, incarceration and strangulation early for maybe present. Suspect mild tethering of transverse colon at the hernia site. No colonic obstruction detected. Duodenal diverticulum appears stable. There is possibly a dependent calculus or medication/food particle. Other nonacute findings as outlined above. N.B. : The above Results were Read Back by Lindsey Brito MD to Sharath Nevarez MD, and understanding confirmed on 08/04/2021 05:43:49 (ET). Electronically Signed: Lindsey Brito MD at 5:42 EDT , Chest X-Ray 08/04/21 02:36 IMPRESSION: Stable nonacute findings as above. No acute cardiopulmonary disease. No significant interval change. Electronically Signed: Lindsey Brito MD at 3:02 EDT , KUB X-Ray 08/04/21 06:04 IMPRESSION: Enteric tube tip over the gastric body in good position. Small bowel ileus/obstruction. Electronically Signed: Lindsey Brito MD at 6:52 EDT , Assessment & Plan Assessment/Plan (1) Incarcerated ventral hernia: PLAN: This is an 85-year-old female, who is relatively healthy at baseline but diagnosed with diabetes mellitus type 2, who presents with signs and symptoms of a incarcerated ventral hernia and concurrent small bowel obstruction. This appears to have been very progressive in onset. Patient notes at least 2 to 3 days of feeling poorly with minimal oral intake. On exam, patient certainly has an incarcerated ventral hernia, but erythematous changes raise concern for possible early strangulation. This is coupled with CT imaging that shows stranding within the hernia sac. Given the lack of movement when applying manual traction and the signs, patient requires emergent exploratory laparotomy for further evaluation. This impression was shared with patient who agrees with the recommendation for surgery. She states there is no family to be contacted. We will engage hospitalist service to assist with patient's diabetic management and ancillary issues. A nasogastric tube has been placed to low intermittent wall suction and its position confirmed via KUB given the finding of small bowel obstruction at the point of the hernia. Charges/Coding Visit Charges Inpatient E&M: 48596 Init Hosp L2
--- NOTE | 2021-08-04 07:24 | ED.RN ---
Attempted to notify pt's contact Marina of pt's surgery this AM- no answer on cell phone. AC nurse made aware and will also attempt to contact Marina.
[2021-08-04 07:26] LABS: Bedside Glucose 148 mg/dL (74-106)
[2021-08-04] MEDS: Cefazolin 2 GM in 0.9% Normal Saline 100 ML IV (08:10)
--- NOTE | 2021-08-04 08:30 | OM_PTH ---
PATIENT: TARA GUPTA LOC: MS3 U#:[id number] AGE/SX: 85/F ROOM: IL310 RE08/04/[address]: Dr. Kendall Escobar MD : [id number] BED: 1 DIS: 08/09/2021 SPEC #: [id number] RECD: 08/04/21 12:20 STATUS: JANICE MERCADO #: [id number] ANDRES: 08/04/21 08:[address]: Kendall Escobar DEPT: SURGICAL PATHOLOGY RECD BY: Johnny Cole ENTERED: 08/04/21 13:07 SP TYPE: OMENTUM OTHR DR: MD Dr. Remy Art MD Tissues: A - Omentum, NOS B - HERNIA Procedures: Surgery Specimen Level II Surgery Specimen Level IV HEADER OPERATION: Open exploratory laparotomy repair ventral hernia PRE-OP DIAGNOSIS: Incarcerated ventral hernia TISSUE SUBMITTED: A ? Infected omentum, B ? Hernia sac MICROSCOPIC DIAGNOSIS A. Infected omentum, biopsy: Focal acute and chronic inflammation and benign histiocytic proliferation. B. Hernia sac, herniorrhaphy: Granulation and fibrosis. Focal fibrinoid material with acute and chronic inflammation. AM:sigrid 08/06/2021 MICROSCOPIC DESCRIPTION Slides are reviewed. GROSS DESCRIPTION A - Received in fixative is one container labeled with the patient's name and designated omentum. The specimen consists of a piece of adipose tissue consistent with omentum measuring 14 x 10 x 3 cm. Sections of omentum is folded over one another. No mass lesion is identified. Costume Rental Clerk sections are submitted in three cassettes. B - Received in fixative is one container labeled with the patient's name and designated hernia sac. The specimen consists of a piece of congested soft tissue measuring 3 x 1 x 0.6 cm. The specimen is bisected and submitted entirely in one cassette. / SJ:sigrid 08/04/2021 TC:2 CPT: 56456, 06646
[2021-08-04] MEDS: Bupivacaine Mpf 0.5% 30 ML VIAL (09:30)
--- NOTE | 2021-08-04 09:47 | ED.RN ---
Pt's friend Marina called and was updated that pt is having surgery today per pt's request.
--- NOTE | 2021-08-04 10:03 | PCM.OPRPT ---
Report of Operation Date of Procedure: 08/04/21 Pre-Operative Diagnosis: Incarcerated ventral hernia with small bowel obstruction Post-Operative Diagnosis: Same Surgery/Procedure Performed:: 1. Exploratory laparotomy 2. Resection of infarcted omentum 3. Primary closure of the laparotomy Surgeon: Kendlal Escobar manager business intelligence: Giles Silverman Type of Anesthesia: General/Supplemental Anesthesiologist: David Cosme Specimen's removed: 1) Infarcted omentum 2) Hernia sac Drains: NA Estimated Blood Loss (mL): 25 Description of Procedure: After appropriate identification in the preoperative holding area the patient was brought to the operating room where she was positioned supine on the operating room table. There preoperative antibiotics were administered and general anesthesia was begun. For close I&O monitoring, a Olsen catheter was placed sterilely. There was immediate output of 300 mL cloudy urine. Patient's abdomen was then prepped and draped in usual sterile fashion. Formal timeout was conducted to confirm both the patient and the procedure to be performed. Procedure was begun by opening the patient's prior infraumbilical laparotomy incision sharply and carrying dissection carefully down through the subcutaneous tissue with a combination of blunt dissection electrocautery. I ultimately entered the patient's incarcerated ventral hernia sac inferomedially by first opening the fascia below the hernia and making my way cephalad?taking care to protect the hernia contents. It was immediately clear there was a very tight situation around the incarcerated small bowel that was released once I fully open the fascia. However, there was still significant scarring between the patient's hernia sac, omentum, and fascial edge. Great care was taken to bluntly dissect these planes and establish the exact boundary of the hernia sac from the fascia. Still, 2 mesenteric vessels were lacerated and were stick tied with 3-0 silk to reestablish hemostasis. Ultimately we were able to free of the hernia contents from their attachments and they were then examined. There was some involved small bowel with an abrupt transition point to decompressed small bowel distally. This bowel did appear mildly ischemic with a very small mesenteric hematoma, but once the hernia contents were completely freed the bowel perfusion appeared normal. Additionally, there was some omentum which exhibited thrombosed vascularity and was dusky in appearance. I elected to resect this after clamping and tying the free ends using a 3-0 silk tie. This was passed off the field to the recruitment assistant as infarcted omentum. I then ran the small bowel proximally to the ligament of Treitz. While this proximal bowel appeared dilated, it was healthy/viable. This process was then reversed and the bowel was run towards the terminal ileum. Encouragingly I found a abrupt transition where the small bowel had been incorporated with the ventral hernia to decompressed small bowel. This proved to be a very distal location- approximately 50 cm proximal to the terminal ileum. There did not appear to be any stricturing of the small bowel, but simply morphologic changes from its recent incarceration and therefore no bowel resection was undertaken. Seeking to minimize patient's risk of a postoperative seroma, I stripped the patient's hernia sac from the subcutaneous layer using selective electrocautery. This was submitted as a second specimen to the recruitment assistant labeled hernia sac. The patient appeared somewhat malnourished preoperatively and given the emergent nature of her procedure coupled with the relative laxity of her abdominal wall, I elected to proceed with a primary closure of our laparotomy incision. At the fascia, this was undertaken with the use of double-stranded looped PDS in a bidirectional fashion and knotting in the center. To provide for postoperative analgesia, 30 mL of 0.5% bupivacaine was infiltrated into the fascia. I then used a running 3-0 Vicryl to close down some of the space created by the hernia sac in camper's fascia. Lastly the skin was reapproximated with a running 4-0 Monocryl in a subcuticular fashion. An OpSite dressing was placed and the patient was awakened from her anesthetic. As she was moved over to her bed, a abdominal binder was placed for added comfort. Complications None Admit VTE Documentation VTE Present on Admission: Yes VTE Mechan Device Prophylaxis: SCD's
[2021-08-04] MEDS: Lactated Ringers 1,000 ML 15 ML IV (10:25)
--- NOTE | 2021-08-04 10:33 | PN.HOSP_ITS ---
Subjective Subjective Still little bit sedated from surgery for her and incarcerated ventral hernia with infarcted omentum Objective Data Objective Data Vital Signs: Vital Signs Temp Pulse Resp BP Pulse Ox 98.4 F 91 16 148/60 H 97 08/04/21 10:11 08/04/21 10:15 08/04/21 10:15 08/04/21 10:15 08/04/21 10:15 Oxygen Delivery Method Room Air Weight: 147 lb 7.828 oz Body Mass Index (BMI) 27.8 Intake & Output: Intake and Output for Last 24 Hours 08/03/21 08/04/21 08/05/21 03:59 03:59 03:59 Intake Total 160 / 160 Output Total 400 / 400 Balance -240 / -240 Lab / Micro Data Result Diagrams: 08/05/21 05:30 08/05/21 05:30 Labs: Laboratory Results - last 24 hr 08/04/21 02:15: WBC 24.7 H, RBC 4.64, Hgb 13.4, Hct 41.8, MCV 90.1, MCH 28.9, MCHC 32.1, RDW Std Deviation 45.1 H, RDW Coeff of Julián 13.7, Plt Count 453 H, MPV 10.5, Immature Gran % (Auto) 4.900 H, Neut % (Auto) 80.5 H, Lymph % (Auto) 7.9 L , [place] % (Auto) 6.2, Eos % (Auto) 0.4, Baso % (Auto) 0.1, Absolute Neuts (auto) 19.8 H, Absolute Lymphs (auto) 1.94, Nucleated RBC % 0, Diff Path Review June ana Platelet Estimate T INC 08/04/21 02:15: Sodium Cancelled, Potassium Cancelled, Chloride Cancelled, Carbon Dioxide Cancelled, Anion Gap Cancelled, BUN Cancelled, Creatinine Cancelled, Estim Creat Clear Calc Cancelled, Est GFR (MDRD) Af Amer Cancelled, Est GFR (MDRD) Non-Af Cancelled, BUN/Creatinine Ratio Cancelled, Glucose Cancelled, Calcium Cancelled, Total Bilirubin Cancelled, AST Cancelled, ALT Cancelled, Alkaline Phosphatase Cancelled, Troponin I High Sens Cancelled, Total Protein Cancelled, Albumin Cancelled, Globulin Cancelled, Albumin/Globulin Ratio Cancelled, Lipase Cancelled 08/04/21 03:00: Sodium 135 L, Potassium 4.8, Chloride 105, Carbon Dioxide 21.0, Anion Gap 9, BUN 51 H, Creatinine 1.56 H, Estim Creat Clear Calc 20.62, Est GFR (MDRD) Af Amer 41 L, Est GFR (MDRD) Non-Af 34 L, BUN/Creatinine Ratio 32.7 H, Glucose 157 H, Calcium 10.1, Total Bilirubin 0.40, AST 27, ALT 24, Alkaline Phosphatase 78, Troponin I High Sens 17, Total Protein 7.3, Albumin 2.4 L, Globulin 4.9 H, Albumin/Globulin Ratio 0.5 L 08/04/21 03:05: Urine Color Yellow, Urine Clarity Cloudy, Urine pH 5.0, Ur Specific [place] 1.025, Urine Protein 30 H, Urine Glucose (UA) Normal, Urine Ketones 5 H, Urine Occult Blood 25 H, Urine Nitrite Negative, Urine Bilirubin Negative, Urine Urobilinogen Normal, Ur Leukocyte Esterase 500 H, Urine RBC 0 SEEN, Urine WBC 50-100 SEEN, Ur Squamous Epith Cells 0-5 SEEN, Urine Bacteria 2+, Urine Mucus 0 SEEN 08/04/21 05:21: Troponin I High Sens 17 08/04/21 06:01: Lactic Acid 1.4 08/04/21 07:14: POC Glucose 148 H Radiography Diagnostic Testing: Radiology Impression Abdomen CT 08/04/21 02:35 IMPRESSION: Small bowel obstruction just superior to the previous abdominal wall plasty in the right periumbilical hernia containing fat and fat stranding, incarceration and strangulation early for maybe present. Suspect mild tethering of transverse colon at the hernia site. No colonic obstruction detected. Duodenal diverticulum appears stable. There is possibly a dependent calculus or medication/food particle. Other nonacute findings as outlined above. Electronically Signed: Lindsey Brito MD at 5:42 EDT Reading Location ID and State: , Service support , ADDENDUM: 08/04/21 1150 IMPRESSION: Small bowel obstruction just superior to the previous abdominal wall plasty in the right periumbilical hernia containing fat and fat stranding, incarceration and strangulation early for maybe present. Suspect mild tethering of transverse colon at the hernia site. No colonic obstruction detected. Duodenal diverticulum appears stable. There is possibly a dependent calculus or medication/food particle. Other nonacute findings as outlined above. N.B. : The above Results were Read Back by Lindsey Brito MD to Sharath Nevarez MD, and understanding confirmed on 08/04/2021 05:43:49 (ET). Electronically Signed: Lindsey Brito MD at 5:42 EDT , Chest X-Ray 08/04/21 02:36 IMPRESSION: Stable nonacute findings as above. No acute cardiopulmonary disease. No significant interval change. Electronically Signed: Lindsey Brito MD at 3:02 EDT , KUB X-Ray 08/04/21 06:04 IMPRESSION: Enteric tube tip over the gastric body in good position. Small bowel ileus/obstruction. Electronically Signed: Lindsey Brito MD at 6:52 EDT , Rhythm Strip Rhythm Strip: Sinus Tach Rate: 116 Ectopy: None Physical Exam Const alert, oriented x3 and no apparent distress General Appearance: cooperative HEENT normocephalic Mouth: dry mucous membranes Eyes PERRL, EOMs intact bilaterally and conjunctivae normal Neck supple and no JVD Resp normal respiratory effort, no retractions and no use of accessory muscles Auscultation: diminished lung sounds; Negative for crackles, rales, rhonchi or w heezes Cardio regular rate, regular rhythm, S1 normal heart sound, S2 normal heart sound and no murmurs GI soft to palpation and non-distended; Negative for hepatosplenomegaly Palpation: tender Extremity no clubbing, cyanosis or edema Skin no rashes or lesions noted Neuro no focal motor deficits and no sensory deficits noted Psych affect normal Appearance: appropriate Assessment & Plan Assessment/Plan (1) Incarcerated ventral hernia: (2) Urinary tract infection: PLAN: Plan 1. Incarcerated ventral hernia ? Found to have infarcted omentum operative repair on 08/04/2021 ? PT/OT ? Diet advancement and pain management per primary 2. DM2 ? We will hold her glimepiride ? We will place her on sliding scale insulin when she is able to take p.o. ? Accu-Cheks ? We will make adjustments as necessary 3. Hypothyroidism ? Stable ? Continue Synthroid when able to take p.o. 4. Sarcoidosis ? She is on hydroxychloroquine ? We will continue when able to take p.o. 5. GERD ? Stable ? Continue with PPI when able to take p.o. DVT: SCDs Charges/Coding Visit Charges Inpatient E&M: 67152 Subs Hosp L2
[2021-08-04 11:30] LABS: Bedside Glucose 163 mg/dL (74-106)
[2021-08-04 12:33] LABS: Pathologist Review Reviewed
--- NOTE | 2021-08-04 16:05 | CASEMGMT ---
RN INGRID Assessment: Face to Face with pt for initial transition planning/care coordination assessment. RN CM introduced self and role at [facility], pt voices understanding and consents to assessment. Pt is O x3 and answers all questions appropriately at this time. Care providers, pharmacy, and demographics verified/updated. Admitting Dx: incarcerated ventral hernia PCP:Chace Specialists:Pt denies Preferred Pharmacy: [facility] Insurance: My Care [facility] Prescription Benefit: yes LW/HPOA: Pt has a LW/DPOA on file at [facility] but pt states her DPOA has passed. LNOK: Marina Gatesughan, friend Living Arrangements: Pt lives alone in a two story apt with 1 step to enter without a rail or grab bar. Pt reports she is I in ADL's and denies concerns at home. Transportation: Pt obtains transportation through [facility] via [employer]. DME/HHC/SNF: Pt has a cane, rollator and walker. Pt also has a BGM with sufficient supplies. She tests her blood sugar 2x/wk. Pt denies hx of SNF or HHC. Pt states she is going [facility] [place]. She states she needs to call her son who lives in [place] to make aware. Made pt aware that RN CM will follow with patient to see how she does with therapy. Pt currently has a NG and has not been oob. Surgeon in to see pt during assessment. Pt states no further concerns/needs. CM to follow. Advised pt to ask CM if any further question/concerns/needs arise, voices understanding. Pt Goal: SNF, updated SW. Plan: TBD
[2021-08-04] MEDS: HYDROmorphone 0.5 MG/0.5 ML SYRINGE IV ×2 (16:18→22:53)
[2021-08-04] MEDS: 0.9% Saline Lock 10 ML Syringe IV (16:19)
[2021-08-04] MEDS: Phenol/Sodium Phenolate 180ML 3 SPRAY MUCOUS MEM (16:23)
[2021-08-05] VITALS (12 sets, daily range): BP systolic 117–140; BP diastolic 55–76; PULSE 70–148; RESP 14–18; TEMP 36.3–36.8; O2SAT 95–98
[2021-08-05] MEDS: 0.9% Normal Saline 1,000 ML 125 ML IV (03:57)
[2021-08-05] MEDS: Phenol/Sodium Phenolate 180ML 3 SPRAY MUCOUS MEM ×3 (04:24→10:24)
[2021-08-05 06:12] LABS: Absolute Lymphocyte Count 1.48 X10^3/uL (0.83-4.51); Absolute Neutrophil Count 14.3 X10^3/uL (2.0-7.7); Basophil# 0.09 X10^3/uL; Basophil% 0.5 % (0-1); Eosinophil# 0.07 X10^3/uL; Eosinophils% 0.4 % (0-5); Hematocrit 34.9 % (37-47); Hemoglobin 11.1 g/dL (12.0-15.0); Lymphocyte # 1.48 X10^3/ul (0.83-4.51); Lymphocyte % 8.5 % (19-41); Mean Corp Hgb Conc 31.8 g/dL (32-36); Mean Corpuscular Hgb 29.4 pg (27.0-32.0); Mean Corpuscular Volume 92.3 fL (81-99); Mean Platelet Vol. 10.3 fl (6.2-12.0); Monocyte# 1.04 X10^3/uL; Monocyte% 5.9 % (0-10); NRBC Flagged by Analyzer 0 % (0-5); Neutrophil # 14.34 X10^3/uL (2.7-7.7); Platelet Count 334 K/mm3 (150-450); RBC Distribution Width CV 14.1 % (11.6-14.6); RBC Distribution Width SD 47.9 fl (35.1-43.9); Red Blood Count 3.78 M/mm3 (4.2-5.4); White Blood Count 17.5 K/mm3 (4.4-11.0)
[2021-08-05 06:36] LABS: Anion Gap 6 (5-15); BUN 40 mg/dL (7-18); Calcium,Total 8.8 mg/dL (8.5-10.1); Chloride 116 mmol/L (98-107); Creatinine, Serum 1.08 mg/dL (0.55-1.02); EST Glomerular Filtration Rate 51 mL/min (>60); Est Glom Filt Rate - Afr Amer 62 mL/min (>60); Estimated Creatinine Clearance 29.78 ml/min; Glucose 146 mg/dL (74-106); Phosphorus 3.3 mg/dL (2.5-4.9); Potassium 4.8 mmol/L (3.5-5.1); Sodium Level 140 mmol/L (136-145)
[2021-08-05] MEDS: HYDROmorphone 0.5 MG/0.5 ML SYRINGE IV ×2 (08:02→14:24)
[2021-08-05] MEDS: Ondansetron 4 MG/2 ML Vial IV ×2 (08:02→14:24)
[2021-08-05] MEDS: Cefazolin 1 GM/50 ML BAG IV ×3 (08:10→22:04)
--- NOTE | 2021-08-05 09:33 | PN.HOSP_ITS ---
Subjective Subjective Feels better today, has had her G-tube output decreased a little bit Objective Data Objective Data Vital Signs: Vital Signs Temp Pulse Resp BP Pulse Ox 98.1 F 91 17 140/66 H 97 08/05/21 07:58 08/05/21 07:58 08/05/21 07:58 08/05/21 07:58 08/05/21 07:58 Oxygen Delivery Method Room Air Weight: 147 lb 7.828 oz Body Mass Index (BMI) 27.8 Intake & Output: Intake and Output for Last 24 Hours 08/04/21 08/05/21 08/06/21 03:59 03:59 03:59 Intake Total 3338.25 / 3338.25 20 / 20 Output Total 1510 / 1510 240 / 240 Balance 1828.25 / 1828.25 -220 / -220 Lab / Micro Data Result Diagrams: 08/05/21 05:30 08/05/21 05:30 Labs: Laboratory Results - last 24 hr 08/04/21 02:15: Diff Path Review Reviewed 08/04/21 11:28: POC Glucose 163 H 08/05/21 05:30: WBC 17.5 H, RBC 3.78 L, Hgb 11.1 L, Hct 34.9 L, MCV 92.3, MCH 29.4, MCHC 31.8 L, RDW Std Deviation 47.9 H, RDW Coeff of Julián 14.1, Plt Count 334, MPV 10.3, Immature Gran % (Auto) 2.700 H, Neut % (Auto) 82.0 H, Lymph % (Auto) 8.5 L, [place] % (Auto) 5.9, Eos % (Auto) 0.4, Baso % (Auto) 0.5, Absolute Neuts (auto) 14.3 H, Absolute Lymphs (auto) 1.48, Nucleated RBC % 0 08/05/21 05:30: Sodium 140, Potassium 4.8, Chloride 116 H, Carbon Dioxide 18.0 L , Anion Gap 6, BUN 40 H, Creatinine 1.08 H, Estim Creat Clear Calc 29.78, Est GFR (MDRD) Af Amer 62, Est GFR (MDRD) Non-Af 51 L, BUN/Creatinine Ratio 37.0 H, Glucose 146 H, Calcium 8.8, Phosphorus 3.3, Magnesium 2.0 Rhythm Strip Rhythm Strip: Sinus Tach Rate: 116 Ectopy: None Physical Exam Const alert, oriented x3 and no apparent distress General Appearance: cooperative HEENT normocephalic Eyes PERRL, EOMs intact bilaterally and conjunctivae normal Neck supple and no JVD Resp normal respiratory effort, no retractions and no use of accessory muscles Auscultation: diminished lung sounds; Negative for crackles, rales, rhonchi or wheezes Cardio regular rate, regular rhythm, S1 normal heart sound, S2 normal heart sound and no murmurs GI soft to palpation and non-distended; Negative for hepatosplenomegaly Palpation: tender Extremity no clubbing, cyanosis or edema Skin no rashes or lesions noted Neuro no focal motor deficits and no sensory deficits noted Psych affect normal Appearance: appropriate Assessment & Plan Assessment/Plan (1) Incarcerated ventral hernia: (2) Urinary tract infection: PLAN: Plan 1. Incarcerated ventral hernia/UTI ? Found to have infarcted omentum operative repair on 08/04/2021 ? PT/OT ? Diet advancement and pain management per primary ? Current cultures pending, previous culture with Klebsiella that was essentially pansensitive, will place her on Ancef ? Increase getting out of bed and ambulation. 2. DM2 ? We will hold her glimepiride ? We will place her on sliding scale insulin when she is able to take p.o. ? Accu-Cheks ? We will make adjustments as necessary 3. Hypothyroidism ? Stable ? Continue Synthroid when able to take p.o. 4. Sarcoidosis ? She is on hydroxychloroquine ? We will continue when able to take p.o. 5. GERD ? Stable ? Continue with PPI DVT: SCDs Charges/Coding Visit Charges Inpatient E&M: 24962 Subs Hosp L2
--- NOTE | 2021-08-05 11:16 | CASEMGMT ---
Addendum entered by Ladonna Ivey 08/05/21 11:36: Social Work Pt has services through [facility] with Lizbeth Gresham, Gaming Department Head [phone]. left with Lizbeth to update on admission. Pt does have aid services through [facility] 3x week for 3 hours a day, 14 home delivered meals a week and a medical alert system. Will update Lizbeth on discharge plan. PATTI Haas Original Note: Social Work SW met with pt and discussed discharge plan. Pt feels she would benefit from short term rehabilitation prior to returning home alone. SW provided pt with list of SNF providers including quality and resource use data and consistent with the patient's preferred geographic region, medical needs and insurance network. Pt preferred provider is [facility]. Nubia, discharge clinical education assistant, notified and will start referral process. Plan: [facility], pending acceptance and precert PATTI Haas
--- NOTE | 2021-08-05 11:30 | CASEMGMT ---
Discharge Sprayer Hand Called Tania at [facility]. Beds are available. Faxed over referral. Will follow up. Nubia Oquendo Discharge Sprayer Hand
--- NOTE | 2021-08-05 12:25 | PCM.PN.SRG ---
Subjective Subjective Patient seen and examined during AM rounds. She is found resting in bed, but stated that she overall felt better. She had some abdominal discomfort and was requesting discontinuation of her nasogastric tube. Unfortunately she has not had flatus or bowel movement as yet. She does confirm that she was out of bed in the chair yesterday already after surgery. Objective Data Objective Data Vital Signs: Vital Signs Temp Pulse Resp BP Pulse Ox 98.1 F 91 17 140/66 H 97 08/05/21 07:58 08/05/21 07:58 08/05/21 07:58 08/05/21 07:58 08/05/21 07:58 Oxygen Delivery Method Room Air Weight: 147 lb 7.828 oz Body Mass Index (BMI) 27.8 Intake & Output: Intake and Output for Last 24 Hours 08/03/21 08/04/21 08/05/21 23:59 23:59 23:59 Intake Total 2320.33 / 2340.33 1087.92 / 1087.92 Output Total 1250 / 1510 500 / 500 Balance 1070.33 / 830.33 587.92 / 587.92 Lab / Micro Data Result Diagrams: 08/05/21 05:30 08/05/21 05:30 Labs: Laboratory Results - last 24 hr 08/04/21 02:15: Diff Path Review Reviewed 08/05/21 05:30: WBC 17.5 H, RBC 3.78 L, Hgb 11.1 L, Hct 34.9 L, MCV 92.3, MCH 29.4, MCHC 31.8 L, RDW Std Deviation 47.9 H, RDW Coeff of Julián 14.1, Plt Count 334, MPV 10.3, Immature Gran % (Auto) 2.700 H, Neut % (Auto) 82.0 H, Lymph % (Auto) 8.5 L, [place] % (Auto) 5.9, Eos % (Auto) 0.4, Baso % (Auto) 0.5, Absolute Neuts (auto) 14.3 H, Absolute Lymphs (auto) 1.48, Nucleated RBC % 0 08/05/21 05:30: Sodium 140, Potassium 4.8, Chloride 116 H, Carbon Dioxide 18.0 L, Anion Gap 6, BUN 40 H, Creatinine 1.08 H, Estim Creat Clear Calc 29.78, Est GFR (MDRD) Af Amer 62, Est GFR (MDRD) Non-Af 51 L, BUN/Creatinine Ratio 37.0 H, Glucose 146 H, Calcium 8.8, Phosphorus 3.3, Magnesium 2.0 Micro: Microbiology 08/04/21 10:30 Urine Catheter - Olsen Urine Culture - Preliminary Alpha hemolytic organism 08/04/21 03:05 Urine, Clean Catch Urine Culture - Preliminary Alpha hemolytic organism Rhythm Strip Rhythm Strip: Sinus Tach Rate: 116 Ectopy: None Physical Exam Const oriented x3 and no apparent distress Resp normal respiratory effort GI GI Narrative: Nondistended, soft, operative dressing in place with mild strikethrough in the midportion with a serosanguineous character drainage. Appropriately tender to palpation. Nasogastric tube with darker, bilious output Assessment & Plan Assessment/Plan (1) Incarcerated ventral hernia: (2) Complete small bowel obstruction: PLAN: Plan Patient postoperative day 1 from emergent repair of incarcerated ventral hernia with concurrent small bowel obstruction. She reports that overall her pain is controlled. She was up and out of bed in a chair yesterday but has not ambulated. NG tube output is decreased, but patient has not yet experienced return of bowel function. Neuro: As needed Dilaudid, and will add oral once patient able to have nasogastric tube removed Pulm/CV: Incentive spirometer, O2 as needed, maintain head of bed upright for aspiration precautions FEN/GI: Continue to monitor electrolytes while NPO, no abnormalities today, remain n.p.o. with nasogastric tube to low intermittent wall suction until return of bowel function Heme/ID: Continue to trend CBC for Hgb and WBC. Patient on Ancef per hospitalist service for history of urinary tract infection and dirty UA Endo: Diabetes management per hospitalist Proph: Ambulate as tolerated, SCDs, plan to add in subcu heparin tomorrow if labs stable Dispo: Continue inpatient stay Charges/Coding Visit Charges Inpatient E&M: 63317 Subs Hosp L2
--- NOTE | 2021-08-05 12:44 | CASEMGMT ---
Discharge Ampoule Examiner Tania reached out patient has been accepted. CARMELO Dougherty has been notified. Will follow up. Nubia Oquendo Discharge Ampoule Examiner
[2021-08-05] MEDS: 0.9% Normal Saline 1,000 ML 100 ML IV ×2 (12:55→22:03)
--- NOTE | 2021-08-05 14:07 | CASEMGMT ---
Social Work Pt notified that [facility] is able to accept and precert will be started when pt is closer to discharge. offered to call pt son Maurizio to update but pt denied stating she has talked to Maurizio about discharge plan to [facility] and he is agreeable. Plan: [facility], precert will be needed prior to discharge PATTI Haas
[2021-08-06] VITALS (9 sets, daily range): BP systolic 124–141; BP diastolic 38–65; PULSE 71–88; RESP 14–18; TEMP 36.3–37; O2SAT 96–97
[2021-08-06 05:26] LABS: Absolute Lymphocyte Count 1.32 X10^3/uL (0.83-4.51); Absolute Neutrophil Count 10.8 X10^3/uL (2.0-7.7); Basophil# 0.07 X10^3/uL; Basophil% 0.5 % (0-1); Eosinophil# 0.33 X10^3/uL; Eosinophils% 2.4 % (0-5); Hematocrit 34.5 % (37-47); Hemoglobin 10.9 g/dL (12.0-15.0); Lymphocyte # 1.32 X10^3/ul (0.83-4.51); Lymphocyte % 9.7 % (19-41); Mean Corp Hgb Conc 31.6 g/dL (32-36); Mean Corpuscular Hgb 29.1 pg (27.0-32.0); Mean Corpuscular Volume 92.2 fL (81-99); Mean Platelet Vol. 10.2 fl (6.2-12.0); Monocyte# 0.75 X10^3/uL; Monocyte% 5.5 % (0-10); NRBC Flagged by Analyzer 0 % (0-5); Neutrophil # 10.76 X10^3/uL (2.7-7.7); Neutrophil % 79.5 % (47-70); Platelet Count 289 K/mm3 (150-450); RBC Distribution Width CV 13.9 % (11.6-14.6); Red Blood Count 3.74 M/mm3 (4.2-5.4); White Blood Count 13.6 K/mm3 (4.4-11.0)
[2021-08-06] MEDS: Cefazolin 1 GM/50 ML BAG IV ×3 (05:50→21:47)
[2021-08-06] MEDS: HYDROmorphone 0.5 MG/0.5 ML SYRINGE IV (05:50)
[2021-08-06 05:56] LABS: Anion Gap 9 (5-15); BUN 27 mg/dL (7-18); BUN/Creat Ratio 34.2 RATIO (10-20); Calcium,Total 8.7 mg/dL (8.5-10.1); Chloride 118 mmol/L (98-107); Creatinine, Serum 0.79 mg/dL (0.55-1.02); EST Glomerular Filtration Rate 74 mL/min (>60); Est Glom Filt Rate - Afr Amer 89 mL/min (>60); Estimated Creatinine Clearance 32.17 ml/min; Glucose 115 mg/dL (74-106); Potassium 4.1 mmol/L (3.5-5.1); Sodium Level 144 mmol/L (136-145)
[2021-08-06] MEDS: Ondansetron 4 MG/2 ML Vial IV (06:33)
[2021-08-06] MEDS: Menthol/Lanolin/Calamine/Znox 113 GM Tube 1 APPLIC TOPICAL ×4 (08:16→21:47)
[2021-08-06 08:28] LABS: Magnesium 2.1 mg/dL (1.6-2.6); Phosphorus 2.1 mg/dL (2.5-4.9)
--- NOTE | 2021-08-06 08:46 | PN.SURG_ITS ---
Subjective Subjective Patient seen and examined during AM rounds. She is found resting quietly in bed. She states overall she is feeling better today. She denies any return of bowel function and relates her difficulties with urinary retention overnight requiring a straight catheterization. She has had some hiccuping and burping this morning. She states this is not normal for her. Objective Data Objective Data Vital Signs: Vital Signs Temp Pulse Resp BP Pulse Ox 98.2 F 78 16 133/56 H 97 08/06/21 08:00 08/06/21 08:00 08/06/21 08:00 08/06/21 08:00 08/06/21 08:00 Oxygen Delivery Method Room Air Weight: 147 lb 7.828 oz Body Mass Index (BMI) 27.8 Intake & Output: Intake and Output for Last 24 Hours 08/04/21 08/05/21 08/06/21 23:59 23:59 23:59 Intake Total 2320.33 / 2340.33 3246.26 / 3246.26 1105.00 / 1105.00 Output Total 1250 / 1510 975 / 975 770 / 770 Balance 1070.33 / 830.33 2271.26 / 2271.26 335.00 / 335.00 Lab / Micro Data Result Diagrams: 08/06/21 04:42 08/06/21 04:42 Labs: Laboratory Results - last 24 hr 08/06/21 04:42: WBC 13.6 H, RBC 3.74 L, Hgb 10.9 L, Hct 34.5 L, MCV 92.2, MCH 29.1, MCHC 31.6 L, RDW Std Deviation 47.0 H, RDW Coeff of Julián 13.9, Plt Count 289, MPV 10.2, Immature Gran % (Auto) 2.400 H, Neut % (Auto) 79.5 H, Lymph % (Auto) 9.7 L, [place] % (Auto) 5.5, Eos % (Auto) 2.4, Baso % (Auto) 0.5, Absolute Neuts (auto) 10.8 H, Absolute Lymphs (auto) 1.32, Nucleated RBC % 0 08/06/21 04:42: Sodium 144, Potassium 4.1, Chloride 118 H, Carbon Dioxide 17.0 L , Anion Gap 9, BUN 27 H, Creatinine 0.79, Estim Creat Clear Calc 32.17, Est GFR (MDRD) Af Amer 89, Est GFR (MDRD) Non-Af 74, BUN/Creatinine Ratio 34.2 H, Glucose 115 H, Calcium 8.7 08/06/21 04:42: Phosphorus 2.1 L, Magnesium 2.1 Micro: Microbiology 08/04/21 10:30 Urine Catheter - Olsen Urine Culture - Final Lactobacillus plantarum 08/04/21 03:05 Urine, Clean Catch Urine Culture - Final Lactobacillus plantarum Rhythm Strip Rhythm Strip: Sinus Tach Rate: 116 Ectopy: None Physical Exam Const oriented x3 and no apparent distress Resp normal respiratory effort GI GI Narrative: Nondistended, soft, operative dressing in place with strikethrough of serosanguineous drainage. This dressing is removed and beneath the Steri-Strips are intact. There is no ongoing drainage from the wound or surrounding erythema. Appropriately tender to palpation. Nasogastric tube with clearing, bilious output Assessment & Plan Assessment/Plan (1) Incarcerated ventral hernia: (2) Complete small bowel obstruction: PLAN: Plan Patient postoperative day 2 from emergent repair of incarcerated ventral hernia with concurrent small bowel obstruction. She reports feeling better today than yesterday. She was up and out of bed in a chair as well as walking yesterday. Unfortunately she did experience some urinary retention overnight. NG tube output is both further decreased as well as clearing in character, but patient has not yet experienced return of bowel function. Neuro: As needed Dilaudid, and will add IV Toradol 15 mg every 6 hours scheduled x3 days given stability of patient's blood counts and renal function Pulm/CV: Incentive spirometer, up and out of bed in a chair is much as possible, O2 as needed, maintain head of bed upright for aspiration precautions FEN/GI: Continue to monitor electrolytes while NPO, patient requires Phos replacement today, remain n.p.o. with nasogastric tube to low intermittent wall suction until return of bowel function?we will reassess later today for possible clamp trial Heme/ID: Continue to trend CBC for Hgb and WBC. Patient on Ancef per hospitalist service for urinary tract infection Endo: Diabetes management per hospitalist Proph: Ambulate as tolerated, SCDs, begin subcu heparin every 8 hours for DVT prophylaxis Dispo: Continue inpatient stay
--- NOTE | 2021-08-06 09:10 | PCM.PN.HOSP ---
Subjective Subjective Better but no return of bowel function yet Objective Data Objective Data Vital Signs: Vital Signs Temp Pulse Resp BP Pulse Ox 98.2 F 78 16 133/56 H 97 08/06/21 08:00 08/06/21 08:00 08/06/21 08:00 08/06/21 08:00 08/06/21 08:00 Oxygen Delivery Method Room Air Weight: 147 lb 7.828 oz Body Mass Index (BMI) 27.8 Intake & Output: Intake and Output for Last 24 Hours 08/05/21 08/06/21 08/07/21 03:59 03:59 03:59 Intake Total 3338.25 / 3338.25 2268.34 / 2268.34 1065.00 / 1065.00 Output Total 1510 / 1510 815 / 815 670 / 670 Balance 1828.25 / 1828.25 1453.34 / 1453.34 395.00 / 395.00 Lab / Micro Data Result Diagrams: 08/06/21 04:42 08/06/21 04:42 Labs: Laboratory Results - last 24 hr 08/06/21 04:42: WBC 13.6 H, RBC 3.74 L, Hgb 10.9 L, Hct 34.5 L, MCV 92.2, MCH 29.1, MCHC 31.6 L, RDW Std Deviation 47.0 H, RDW Coeff of Julián 13.9, Plt Count 289, MPV 10.2, Immature Gran % (Auto) 2.400 H, Neut % (Auto) 79.5 H, Lymph % (Auto) 9.7 L, [place] % (Auto) 5.5, Eos % (Auto) 2.4, Baso % (Auto) 0.5, Absolute Neuts (auto) 10.8 H, Absolute Lymphs (auto) 1.32, Nucleated RBC % 0 08/06/21 04:42: Sodium 144, Potassium 4.1, Chloride 118 H, Carbon Dioxide 17.0 L, Anion Gap 9, BUN 27 H, Creatinine 0.79, Estim Creat Clear Calc 32.17, Est GFR (MDRD) Af Amer 89, Est GFR (MDRD) Non-Af 74, BUN/Creatinine Ratio 34.2 H, Glucose 115 H, Calcium 8.7 08/06/21 04:42: Phosphorus 2.1 L, Magnesium 2.1 Micro: Microbiology 08/04/21 10:30 Urine Catheter - Olsen Urine Culture - Final Lactobacillus plantarum 08/04/21 03:05 Urine, Clean Catch Urine Culture - Final Lactobacillus plantarum Rhythm Strip Rhythm Strip: Sinus Tach Rate: 116 Ectopy: None Physical Exam Narrative Const alert, oriented x3 and no apparent distress General Appearance: cooperative HEENT normocephalic Eyes PERRL, EOMs intact bilaterally and conjunctivae normal Neck supple and no JVD Resp normal respiratory effort, no retractions and no use of accessory muscles Auscultation: diminished lung sounds; Negative for crackles, rales, rhonchi or wheezes Cardio regular rate, regular rhythm, S1 normal heart sound, S2 normal heart sound and no murmurs GI soft to palpation and non-distended; Negative for hepatosplenomegaly Palpation: tender Extremity no clubbing, cyanosis or edema Skin no rashes or lesions noted Neuro no focal motor deficits and no sensory deficits noted Psych affect normal Appearance: appropriate Assessment & Plan Assessment/Plan (1) Incarcerated ventral hernia: (2) Urinary tract infection: PLAN: Plan 1. Incarcerated ventral hernia/UTI ? Found to have infarcted omentum operative repair on 08/04/2021 ? PT/OT ? Diet advancement and pain management per primary ? Current cultures pending, previous culture with Klebsiella that was essentially pansensitive, will place her on Ancef ? Increase getting out of bed and ambulation. ? Still no return of bowel function but NG output has improved 2. DM2 ? We will hold her glimepiride ? We will place her on sliding scale insulin when she is able to take p.o. ? Accu-Cheks ? We will make adjustments as necessary 3. Hypothyroidism ? Stable ? Continue Synthroid when able to take p.o. 4. Sarcoidosis ? She is on hydroxychloroquine ? We will continue when able to take p.o. 5. GERD ? Stable ? Continue with PPI DVT: SCDs Charges/Coding Visit Charges Inpatient E&M: 26732 Subs Hosp L2
[2021-08-06] MEDS: 0.9% Normal Saline 1,000 ML 75 ML IV (10:21)
[2021-08-06] MEDS: 0.9% Saline Lock 10 ML Syringe IV ×2 (11:03→18:07)
[2021-08-06] MEDS: Ketorolac 15 MG/ML Vial IV ×3 (11:03→23:21)
--- NOTE | 2021-08-06 11:11 | NURSING ---
Bladder scanned at this time for 236cc. Will continue to monitor.
[2021-08-06] MEDS: Heparin Injection (Vial) 5,000 UNIT/ML VIAL 5000 UNIT SC ×2 (13:46→21:48)
[2021-08-06] MEDS: Tamsulosin HCl 0.4 MG Capsule PO (18:06)
[2021-08-07] VITALS (9 sets, daily range): BP systolic 105–118; BP diastolic 40–66; PULSE 65–91; RESP 12–18; TEMP 35.9–36.7; O2SAT 93–98
[2021-08-07] MEDS: 0.9% Normal Saline 1,000 ML 75 ML IV ×2 (02:38→18:54)
[2021-08-07 04:16] LABS: Hematocrit 29.3 % (37-47); Hemoglobin 9.3 g/dL (12.0-15.0); Mean Corp Hgb Conc 31.7 g/dL (32-36); Mean Corpuscular Hgb 28.8 pg (27.0-32.0); Mean Corpuscular Volume 90.7 fL (81-99); Platelet Count 222 K/mm3 (150-450); RBC Distribution Width CV 13.8 % (11.6-14.6); RBC Distribution Width SD 46.3 fl (35.1-43.9); Red Blood Count 3.23 M/mm3 (4.2-5.4); White Blood Count 9.2 K/mm3 (4.4-11.0)
[2021-08-07] MEDS: Cefazolin 1 GM/50 ML BAG IV ×3 (05:18→22:12)
[2021-08-07] MEDS: Ketorolac 15 MG/ML Vial IV ×3 (05:19→18:51)
[2021-08-07] MEDS: Heparin Injection (Vial) 5,000 UNIT/ML VIAL 5000 UNIT SC ×3 (05:20→22:11)
[2021-08-07 05:35] LABS: Anion Gap 8 (5-15); BUN 23 mg/dL (7-18); BUN/Creat Ratio 37.4 RATIO (10-20); Calcium,Total 8.3 mg/dL (8.5-10.1); Chloride 120 mmol/L (98-107); Creatinine, Serum 0.62 mg/dL (0.55-1.02); EST Glomerular Filtration Rate 98 mL/min (>60); Est Glom Filt Rate - Afr Amer 119 mL/min (>60); Estimated Creatinine Clearance 32.17 ml/min; Glucose 91 mg/dL (74-106); Magnesium 2.3 mg/dL (1.6-2.6); Potassium 3.8 mmol/L (3.5-5.1); Sodium Level 146 mmol/L (136-145)
[2021-08-07 06:01] LABS: Phosphorus 2.3 mg/dL (2.5-4.9)
[2021-08-07] MEDS: Menthol/Lanolin/Calamine/Znox 113 GM Tube 1 APPLIC TOPICAL ×3 (08:28→22:12)
--- NOTE | 2021-08-07 08:58 | NURSING ---
at 0840am this morning, This RN was able to get pt up to chair and clamp NG tube per orders. Pt is brushing her teeth at this time.
--- NOTE | 2021-08-07 09:46 | CASEMGMT ---
Discharge Pathology Tech Faxed over PT/OT notes on patient to [facility]. Will follow up with Tania about pre-cert later today once we know more about a rough D/C date. Nubia Oquendo Discharge Pathology Tech
--- NOTE | 2021-08-07 10:19 | CASEMGMT ---
Social Work SW called Tania at [facility] to review anticipated discharge and when to start precert. Tania states that pt's insurance has been taking a long time to get precerts, so to send updates today and they will start precert in the hopes to get it by the end of tomorrow, so we will have it in the event pt can be discharged over the weekend. PT/OT updates sent already by discharge marketing planning manager, medical updates will be sent later today. DEYSI Lind
--- NOTE | 2021-08-07 10:46 | PCM.PROGNOTE ---
Subjective Subjective Patient is an 85 y/o F I am following in conjunction with Dr. Escobar, who has also evaluated this patient. Patient notes her pain is slightly improving. She notes she did ambulate yesterday in the hallway and with therapy x 4. She denies nausea. She notes her main complaint this morning is sore throat. She had a zendejas catheter placed last night due to urinary retention. 475 cc immediate removal was accomplished with the zendejas being placed. She had Flomax started. She has had 300 cc of urine output so far today. She notes she passed flatus overnight. Negative BM. Objective Data Objective Data Vital Signs: Vital Signs Temp Pulse Resp BP Pulse Ox O2 Del Method 97.9 F 67 16 116/48 L 97 Room Air 08/07/21 08:00 08/07/21 08:00 08/07/21 08:00 08/07/21 08:00 08/07/21 08:00 08/07/21 08:00 Oxygen Delivery Method Room Air Weight: 147 lb 7.828 oz Body Mass Index (BMI) 27.8 Intake & Output: Intake and Output for Last 24 Hours 08/05/21 08/06/21 08/07/21 23:59 23:59 23:59 Intake Total 3246.26 / 3246.26 1658.75 / 1658.75 996.25 / 996.25 Output Total 975 / 975 1545 / 1545 525 / 525 Balance 2271.26 / 2271.26 113.75 / 113.75 471.25 / 471.25 Lab / Micro Data Result Diagrams: 08/07/21 04:10 08/07/21 04:10 Labs: Laboratory Results - last 24 hr 08/07/21 04:10: Sodium 146 H, Potassium 3.8, Chloride 120 H, Carbon Dioxide 18.0 L, Anion Gap 8, BUN 23 H, Creatinine 0.62, Estim Creat Clear Calc 32.17, Est GFR (MDRD) Af Amer 119, Est GFR (MDRD) Non-Af 98, BUN/Creatinine Ratio 37.4 H, Glucose 91, Calcium 8.3 L, Magnesium 2.3 08/07/21 04:10: WBC 9.2, RBC 3.23 L, Hgb 9.3 L, Hct 29.3 L, MCV 90.7, MCH 28.8, MCHC 31.7 L, RDW Std Deviation 46.3 H, RDW Coeff of Julián 13.8, Plt Count 222, MPV 10.0 08/07/21 04:10: Phosphorus 2.3 L Micro: Microbiology 08/04/21 10:30 Urine Catheter - Zendejas Urine Culture - Final Lactobacillus plantarum 08/04/21 03:05 Urine, Clean Catch Urine Culture - Final Lactobacillus plantarum Rhythm Strip Rhythm Strip: Sinus Tach Rate: 116 Ectopy: None Physical Exam Const Constitutional Narrative: NG tube in place connected to LIWS General Appearance: cooperative and comfortable; Negative for in distress GI soft to palpation and non-tender GI Narrative: Incision c/d/i. No erythema or infection noted. No active bleeding noted. Abdominal binder in place Auscultation: hypoactive bowel sounds Assessment & Plan Assessment/Plan (1) Incarcerated ventral hernia: PLAN: Patient has been reviewed with Dr. Escobar. Patient is POD #3. She is progressing well. Recommend leaving binder open while laying in bed. We will plan for a clamp trial of the NG tube this morning. Plan for NG tube off suction x 4 hours and reconnect to suction for 30 minutes. If <100 cc output over the 30 minutes, will plan to remove NG tube and start clears. Continue zendejas catheter today and Flomax. Will plan to remove Zendejas tomorrow morning. Replace phosphorus. Morning labs have been ordered. Continue to recommend I.S. use while sitting in the chair. Continue ambulation multiple times today and sitting in the chair. Discussed with the patient we would like to see her sitting in the chair more than in bed. We will continue to monitor this patient Thank you to case management for their assistance with discharge planning Appreciate medicine recommendations. Charges/Coding Visit Charges Inpatient E&M: 03558 Subs Hosp L1 (No charge; post-op)
[2021-08-07] MEDS: 0.9% Saline Lock 10 ML Syringe IV ×5 (10:54→22:31)
--- NOTE | 2021-08-07 12:06 | NURSING ---
This Nurse in to unclamp NG. Hooked up to Suction and 50cc of drainage is all that was suctioned out. Per orders This nurse can pull NG but pt is feeling nauseated so This nurse Cortexted Meredith Hussein to inform her of this findings.
[2021-08-07] MEDS: Phenol/Sodium Phenolate 180ML 3 SPRAY MUCOUS MEM (12:29)
[2021-08-07] MEDS: Ondansetron 4 MG/2 ML Vial IV (12:29)
--- NOTE | 2021-08-07 12:48 | RAD_ITS ---
STUDY: AP ABDOMEN AND PELVIS X-RAY SERIES OF 1534 HOURS ON 08/07/2021 REASON FOR EXAM: 85-year-old female with a clinical suggestive of postoperative ileus. TECHNIQUE: A 4 view AP abdomen and pelvis x-ray series was performed per protocol. COMPARISON: None. FINDINGS: Mild demineralization. Mild thoracolumbar levoscoliosis. No abdominal organomegaly.. Very mild ileus. No intestinal obstruction. No abnormal intra-abdominal calcifications or other collections of air. Nasogastric tube with its distal tip in the duodenal bulb. RAD/Abd Inc Decub and/or Erect IMPRESSION: 1. Very mild ileus. No evidence of an intestinal obstruction. 2. No abdominal organomegaly. 3. No other abnormal intra-abdominal calcifications or collections of air. 4. Nasogastric tube with its tip in the duodenal bulb. 5. Mild demineralization and mild thoracolumbar levoscoliosis. Electronically Signed: Grant Xavier MD at 17:06 EDT ,
[2021-08-07] MEDS: Tamsulosin HCl 0.4 MG Capsule PO (18:51)
[2021-08-07 22:26] LABS: Bedside Glucose 66 mg/dL (74-106)
[2021-08-07] MEDS: Dextrose 50%-Water 25 GM/50 ML DISP.SYRIN IV (22:30)
[2021-08-07 23:21] LABS: Bedside Glucose 122 mg/dL (74-106)
[2021-08-08] VITALS (9 sets, daily range): BP systolic 118–134; BP diastolic 44–56; PULSE 57–89; RESP 16; TEMP 36.7–37; O2SAT 97–98
[2021-08-08] MEDS: Dextrose 5%/0.9% NaCl 1,000 ML 75 ML IV ×2 (00:06→14:49)
[2021-08-08] MEDS: 0.9% Saline Lock 10 ML Syringe IV ×3 (00:08→10:47)
[2021-08-08] MEDS: Ketorolac 15 MG/ML Vial IV ×3 (00:09→11:54)
--- NOTE | 2021-08-08 02:24 | NURSING ---
pt reports passing flatus
[2021-08-08 04:16] LABS: Bedside Glucose 115 mg/dL (74-106)
[2021-08-08 04:50] LABS: Absolute Lymphocyte Count 1.44 X10^3/uL (0.83-4.51); Absolute Neutrophil Count 4.5 X10^3/uL (2.0-7.7); Basophil# 0.03 X10^3/uL; Basophil% 0.4 % (0-1); Hematocrit 26.8 % (37-47); Hemoglobin 8.6 g/dL (12.0-15.0); Lymphocyte # 1.44 X10^3/ul (0.83-4.51); Lymphocyte % 21.6 % (19-41); Mean Corp Hgb Conc 32.1 g/dL (32-36); Mean Corpuscular Hgb 28.8 pg (27.0-32.0); Mean Corpuscular Volume 89.6 fL (81-99); Mean Platelet Vol. 10.3 fl (6.2-12.0); Monocyte# 0.46 X10^3/uL; Monocyte% 6.9 % (0-10); NRBC Flagged by Analyzer 0 % (0-5); Neutrophil # 4.48 X10^3/uL (2.7-7.7); Neutrophil % 67.1 % (47-70); Platelet Count 215 K/mm3 (150-450); RBC Distribution Width CV 13.9 % (11.6-14.6); RBC Distribution Width SD 45.4 fl (35.1-43.9); Red Blood Count 2.99 M/mm3 (4.2-5.4); White Blood Count 6.7 K/mm3 (4.4-11.0)
[2021-08-08 05:24] LABS: Anion Gap 9 (5-15); BUN 20 mg/dL (7-18); BUN/Creat Ratio 30.9 RATIO (10-20); Calcium,Total 8.3 mg/dL (8.5-10.1); Chloride 119 mmol/L (98-107); Creatinine, Serum 0.65 mg/dL (0.55-1.02); EST Glomerular Filtration Rate 93 mL/min (>60); Est Glom Filt Rate - Afr Amer 112 mL/min (>60); Estimated Creatinine Clearance 32.17 ml/min; Glucose 116 mg/dL (74-106); Magnesium 2.4 mg/dL (1.6-2.6); Phosphorus 2.1 mg/dL (2.5-4.9); Potassium 3.5 mmol/L (3.5-5.1); Sodium Level 146 mmol/L (136-145)
[2021-08-08] MEDS: Cefazolin 1 GM/50 ML BAG IV ×2 (05:52→14:45)
[2021-08-08] MEDS: Heparin Injection (Vial) 5,000 UNIT/ML VIAL 5000 UNIT SC ×3 (05:57→23:06)
--- NOTE | 2021-08-08 09:02 | PN.SURG_ITS ---
Subjective Subjective Patient seen and examined during AM rounds and then later again during afternoon rounds. This morning, patient reported some flatus and confirmed that her abdominal discomfort continued to improve. Objective Data Objective Data Vital Signs: Vital Signs Temp Pulse Resp BP Pulse Ox O2 Del Method 98.3 F 66 16 129/56 H 97 Room Air 08/08/21 08:33 08/08/21 08:33 08/08/21 08:33 08/08/21 08:33 08/08/21 08:33 08/08/21 08:33 Oxygen Delivery Method Room Air Weight: 147 lb 7.828 oz Body Mass Index (BMI) 27.8 Intake & Output: Intake and Output for Last 24 Hours 08/06/21 08/07/21 08/08/21 23:59 23:59 23:59 Intake Total 1658.75 / 1658.75 2615.00 / 2615.00 520 / 520 Output Total 1545 / 1545 1575 / 1575 280 / 280 Balance 113.75 / 113.75 1040.00 / 1040.00 240 / 240 Lab / Micro Data Result Diagrams: 08/08/21 03:59 08/08/21 03:59 Labs: Laboratory Results - last 24 hr 08/07/21 22:19: POC Glucose 66 L 08/07/21 23:14: POC Glucose 122 H 08/08/21 03:59: WBC 6.7, RBC 2.99 L, Hgb 8.6 L, Hct 26.8 L, MCV 89.6, MCH 28.8, MCHC 32.1, RDW Std Deviation 45.4 H, RDW Coeff of Julián 13.9, Plt Count 215, MPV 10.3, Immature Gran % (Auto) 1.000 H, Neut % (Auto) 67.1, Lymph % (Auto) 21.6, [place] % (Auto) 6.9, Eos % (Auto) 3.0, Baso % (Auto) 0.4, Absolute Neuts (auto) 4.5, Absolute Lymphs (auto) 1.44, Nucleated RBC % 0 08/08/21 03:59: Sodium 146 H, Potassium 3.5, Chloride 119 H, Carbon Dioxide 18.0 L, Anion Gap 9, BUN 20 H, Creatinine 0.65, Estim Creat Clear Calc 32.17, Est GFR (MDRD) Af Amer 112, Est GFR (MDRD) Non-Af 93, BUN/Creatinine Ratio 30.9 H, Glucose 116 H, Calcium 8.3 L, Phosphorus 2.1 L, Magnesium 2.4 08/08/21 04:11: POC Glucose 115 H Micro: Microbiology 08/04/21 10:30 Urine Catheter - Olsen Urine Culture - Final Lactobacillus plantarum 08/04/21 03:05 Urine, Clean Catch Urine Culture - Final Lactobacillus plantarum Radiography Diagnostic Testing: Radiology Impression Abdomen X-Ray 08/07/21 12:48 IMPRESSION: 1. Very mild ileus. No evidence of an intestinal obstruction. 2. No abdominal organomegaly. 3. No other abnormal intra-abdominal calcifications or collections of air. 4. Nasogastric tube with its tip in the duodenal bulb. 5. Mild demineralization and mild thoracolumbar levoscoliosis. Electronically Signed: Grant Xavier MD at 17:06 EDT , Rhythm Strip Rhythm Strip: Sinus Tach Rate: 116 Ectopy: None Physical Exam Const oriented x3 and no apparent distress Resp normal respiratory effort GI GI Narrative: Patient's abdomen is nondistended, and there is a abdominal pad overlying her midline wound which remains covered by Steri-Strips. There is no surrounding erythema or drainage from this wound. Patient tolerates palpation of 4 quadrants without issue. Assessment & Plan Assessment/Plan (1) Incarcerated ventral hernia: (2) Complete small bowel obstruction: PLAN: Plan Patient postoperative day 4 from emergent repair of incarcerated ventral hernia with concurrent small bowel obstruction. She reports continued improvements in her feelings of wellbeing. Yesterday she technically passed a clamp trial of her nasogastric tube, but felt persistent nausea so the tube was left in place. This morning patient reported passage of gas and the tube had very little output overnight so I requested removal and the patient was placed in a chair for aspiration precautions. Her Olsen catheter was also discontinued and we are awaiting spontaneous void. Later in the day I was notified by nursing that patient had a moderate sized bowel movement so a diet was begun. Neuro: Discontinue Dilaudid, add as needed ibuprofen and acetaminophen Pulm/CV: Incentive spirometer, up and out of bed in a chair is much as possible, O2 as needed, maintain head of bed upright for aspiration precautions : Follow-up spontaneous void FEN/GI: Continue to monitor electrolytes, patient now tolerating full liquid diet. Anticipate advance to regular diet tomorrow Heme/ID: Continue to trend CBC for Hgb and WBC. Patient on Ancef per hospitalist service for urinary tract infection Endo: Diabetes management per hospitalist Proph: Ambulate as tolerated, SCDs, begin subcu heparin every 8 hours for DVT prophylaxis Dispo: Continue inpatient stay, but I made aware patient has been accepted to [facility] for ongoing nursing needs. Anticipate discharge possibly tomorrow
[2021-08-08] MEDS: Menthol/Lanolin/Calamine/Znox 113 GM Tube 1 APPLIC TOPICAL ×4 (10:47→23:03)
[2021-08-08 13:40] LABS: Bedside Glucose 153 mg/dL (74-106)
--- NOTE | 2021-08-08 15:26 | CASEMGMT ---
Addendum entered by Mariana Pires 08/08/21 16:26: Social Work SW completed PAS/RR. PAS/RR, along with results, transport form and covid form all on the chart with a green sheet in anticipation of weekend discharge. DEYSI Lind Original Note: Social Work Pt was approved by insurance to go to [facility] as per Tania at [facility]. She can come anytime over the weekend. SW spoke w/pt and let her know, she is in agreement w/going to [facility] at discharge. She is agreeable to SW calling son to let him know. She also would like to complete LW/POA forms. SW called son, let him know pt is approved by insurance to go to [facility] by her insurance and may go on the weekend. Son states understanding. SW then assisted pt in completing LW/POA, she put son Maurizio as POA and friend Sydnie as alternate. SW gave pt originals and copies, and copies placed on chart. DEYSI Lind
[2021-08-08] MEDS: Tamsulosin HCl 0.4 MG Capsule PO (17:19)
--- NOTE | 2021-08-08 17:29 | PCM.PN.HOSP ---
Subjective Subjective Patient was seen and examined today, her NG tube was pulled by general surgery today, I talked to Dr. Escobar concerning her care today. Patient has no complaints of any abdominal pain, fevers, or chills. Objective Data Objective Data Vital Signs: Vital Signs Temp Pulse Resp BP Pulse Ox O2 Del Method 98.1 F 63 16 134/44 H 98 Room Air 08/08/21 14:42 08/08/21 14:42 08/08/21 14:42 08/08/21 14:42 08/08/21 14:42 08/08/21 14:42 Oxygen Delivery Method Room Air Weight: 66.9 kg Body Mass Index (BMI) 27.8 Intake & Output: Intake and Output for Last 24 Hours 08/06/21 08/07/21 08/08/21 23:59 23:59 23:59 Intake Total 1658.75 / 1658.75 2615.00 / 2615.00 2380 / 2380 Output Total 1545 / 1545 1575 / 1575 280 / 280 Balance 113.75 / 113.75 1040.00 / 1040.00 2100 / 2100 Lab / Micro Data Result Diagrams: 08/08/21 03:59 08/08/21 03:59 Labs: Laboratory Results - last 24 hr 08/07/21 22:19: POC Glucose 66 L 08/07/21 23:14: POC Glucose 122 H 08/08/21 03:59: WBC 6.7, RBC 2.99 L, Hgb 8.6 L, Hct 26.8 L, MCV 89.6, MCH 28.8, MCHC 32.1, RDW Std Deviation 45.4 H, RDW Coeff of Julián 13.9, Plt Count 215, MPV 10.3, Immature Gran % (Auto) 1.000 H, Neut % (Auto) 67.1, Lymph % (Auto) 21.6, [place] % (Auto) 6.9, Eos % (Auto) 3.0, Baso % (Auto) 0.4, Absolute Neuts (auto) 4.5, Absolute Lymphs (auto) 1.44, Nucleated RBC % 0 08/08/21 03:59: Sodium 146 H, Potassium 3.5, Chloride 119 H, Carbon Dioxide 18.0 L, Anion Gap 9, BUN 20 H, Creatinine 0.65, Estim Creat Clear Calc 32.17, Est GFR (MDRD) Af Amer 112, Est GFR (MDRD) Non-Af 93, BUN/Creatinine Ratio 30.9 H, Glucose 116 H, Calcium 8.3 L, Phosphorus 2.1 L, Magnesium 2.4 08/08/21 04:11: POC Glucose 115 H 08/08/21 11:54: POC Glucose 153 H Micro: Microbiology 08/04/21 10:30 Urine Catheter - Olsen Urine Culture - Final Lactobacillus plantarum 08/04/21 03:05 Urine, Clean Catch Urine Culture - Final Lactobacillus plantarum Rhythm Strip Rhythm Strip: Sinus Tach Rate: 116 Ectopy: None Physical Exam Const alert, oriented x3 and no apparent distress Constitutional Narrative: Patient appears her stated age General Appearance: cooperative, well kempt and well developed Orientation / Consciousness: awake, oriented to person, oriented to place and oriented to time HEENT normocephalic and moist oral mucous membranes Eyes PERRL, EOMs intact bilaterally and conjunctivae normal Neck nuchal rigidity, supple, no JVD, thyroid normal and no carotid bruits General: trachea midline Resp normal respiratory effort and clear to auscultation bilaterally Auscultation: Negative for rales, rhonchi or wheezes Cardio regular rate, regular rhythm, S1 normal heart sound, S2 normal heart sound, no murmurs, no rub and no gallops GI soft to palpation, non-tender and non-distended Auscultation: hypoactive bowel sounds Extremity no clubbing, cyanosis or edema Skin no rashes or lesions noted General Skin Exam: no breakdown Neuro oriented x3, CN's II-XII intact bilaterally, no focal motor deficits and no sensory deficits noted Sensorium / Orientation: awake and alert Speech: speech normal Psych affect normal Assessment & Plan Assessment/Plan (1) Incarcerated ventral hernia: PLAN: Plan Impression: #1 type 2 diabetes-continue sliding scale insulin, patient will resume oral medications when she is discharged from the hospital. #2 hypothyroidism-patient will resume her Synthroid #3 sarcoidosis-patient is on hydroxychloroquine, this will be resumed #4 generalized debility-we received approval for the patient to go to an extended care facility for short-term rehab services, if the patient remained stable in the morning, she will be discharged at that time. PT and OT will continue to see the patient #5 GERD-patient is on a PPI #6 incarcerated ventral hernia-postop day 4 exploratory laparotomy with resection of infarcted omentum and primary closure of laparotomy-I talked briefly with general surgery about her care, her diet will be advanced Charges/Coding Visit Charges Inpatient E&M: 20755 Subs Hosp L2
[2021-08-08 17:31] LABS: Bedside Glucose 239 mg/dL (74-106)
--- NOTE | 2021-08-08 19:21 | CASEMGMT ---
Social Work Note SW spoke with Tania at [facility] who confirms pt's pre-cert is good through the weekend and if medically cleared pt can admit to [facility] over the weekend. Per previous notes, Green sheet on chart. Aye Oro CHARGER TESTER, [employer]
[2021-08-09] MEDS: Heparin Injection (Vial) 5,000 UNIT/ML VIAL 5000 UNIT SC ×2 (05:48→15:36)
[2021-08-09] MEDS: Levothyroxine 50 MCG Tablet PO (05:52)
[2021-08-09 05:56] VITALS: BP 132/50; PULSE 72; PULSE 74; RESP 18; TEMP 36.7; O2SAT 97
[2021-08-09 06:06] LABS: Bedside Glucose 150 mg/dL (74-106)
--- NOTE | 2021-08-09 07:03 | PCM.TXEXTCAR ---
Diet Diet Order/Speech Therapy: 08/08/21 15:31 Diet: 1800 april ADA Is pt able to select menu?: Yes Diet Comments: No carbonated beverages Routine Orders/Code Status Routine Lab Work: CBC (08/12/21) and - (Fasting and 4 pm fingerstick blood sugars-call attending if blood sugar over 180 or under 80) Code Status: Full Code Wound(s) ABDOMEN: Wound Type: Surgical Incision Therapies Weight Bearing: Full weight bearing Physical Therapy: Eval and Treat Occupational Therapy: Eval and Treat Problem/Diagnosis (1) Incarcerated ventral hernia: Status: Acute Code(s): K43.6 - Other and unspecified ventral hernia with obstruction, without gangrene (2) Complete small bowel obstruction: Status: Acute Code(s): K56.601 - Complete intestinal obstruction, unspecified as to cause (3) Type 2 diabetes mellitus: Status: Chronic Code(s): E11.9 - Type 2 diabetes mellitus without complications (4) GERD (gastroesophageal reflux disease): Status: Chronic Code(s): K21.9 - Gastro-esophageal reflux disease without esophagitis (5) Hypothyroidism: Status: Chronic Code(s): E03.9 - Hypothyroidism, unspecified (6) Sarcoidosis: Status: Chronic Code(s): D86.9 - Sarcoidosis, unspecified Plan Impression: #1 type 2 diabetes-continue sliding scale insulin, patient will resume oral medications when she is discharged from the hospital. #2 hypothyroidism-patient will resume her Synthroid #3 sarcoidosis-patient is on hydroxychloroquine, this will be resumed #4 generalized debility-we received approval for the patient to go to an extended care facility for short-term rehab services, if the patient remained stable in the morning, she will be discharged at that time. PT and OT will continue to see the patient #5 GERD-patient is on a PPI #6 incarcerated ventral hernia-postop day 5 exploratory laparotomy with resection of infarcted omentum and primary closure of laparotomy-I talked briefly with general surgery about her care, her diet will be advanced Allergies/Procedures Done in Hospital Allergies adhesive Adverse Reaction (Verified 08/08/21 16:50) Rash alendronate sodium Adverse Reaction (Verified 08/04/21 02:06) Nausea/Vom/Diarrhea gabapentin [From Neurontin] Adverse Reaction (Verified 08/04/21 02:06) Other hydrocodone [From Vicodin] Adverse Reaction (Verified 08/04/21 02:06) Other naproxen [From Aleve] Adverse Reaction (Verified 08/04/21 02:06) Nausea/Vom/Diarrhea Procedures: - (surgery for incarerated ventral hernia 08/04/21) Type of Care/Length of Stay Estimated LOS: Convalescent Care Less Than 30 days Type of Care Needed: Skilled Rehab Potential: Good Prognosis: Good Additional Orders/Day of Discharge Additional Orders: Nutritional services to see patient H&P will serve as current which was dated: 08/04/21 Day of Discharge: 08/09/21 Discharge Plan Admission Admit Date/Time: 08/04/21 09:55 Primary Reason for Your Visit: incarerated ventral hernia Attending Provider: Kendall Escobar Primary Care Provider: Regine Mas Consulting Providers: Remy Mccord ; Kendall Escobar ; Win Curtis Discharge Orders/Prescriptions Prescriptions: New acetaminophen 500 mg Tablet 500 mg PO Q6H PRN PRN (Reason: PAIN 1-10) Qty: 0 0RF Continued albuterol sulfate 2.5 MG/3 ML solution for nebulization 2.5 mg inhalation Q6H PRN PRN (Reason: Shortness Of Breath) hydroxychloroquine 200 MG tablet 200 mg PO BIDCM glimepiride 1 MG tablet 1 mg PO DAILY levothyroxine 50 MCG tablet 50 mcg PO DAILY pantoprazole 40 MG tablet 40 mg PO DAILY ergocalciferol (vitamin D2) [Vitamin D2] 50,000 UNIT capsule 50 mcg PO QMONTH fluticasone propionate [Flovent HFA] 1 INHALER inhaler 2 puff inhalation BID Discontinued dicyclomine 10 MG capsule 10 mg PO TIDAC PRN (Reason: Diarrhea/Loose Stools) fluticasone propionate 1 SPRAY spray,suspension 1 spray NASAL DAILY albuterol sulfate [Ventolin HFA] 18 GM HFA aerosol inhaler 2 puff IH Q4H PRN PRN (Reason: Sob &/Or Wheezing) nystatin-triamcinolone 1 APPLIC cream 1 applic topical BID Qty: 1 0RF cephalexin 500 MG capsule 500 mg PO Q6 Qty: 28 0RF Referrals / Follow Up: Regine Mas MD [Primary Care Provider] - Kendall Escobar MD [STAFF PHYSICIAN] - In 1 Week (call his office to schedule appointment for next week) Disposition Disposition (needs filled in before D/C Order can be placed): Penitentiary Facility (1) GERD (gastroesophageal reflux disease) Qualifiers: Esophagitis presence: esophagitis presence not specified Qualified Code(s): K21.9 - Gastro-esophageal reflux disease without esophagitis (2) Hypothyroidism Qualifiers: Hypothyroidism type: unspecified Qualified Code(s): E03.9 - Hypothyroidism, unspecified
[2021-08-09] MEDS: Tamsulosin HCl 0.4 MG Capsule PO (07:57)
[2021-08-09] MEDS: Menthol/Lanolin/Calamine/Znox 113 GM Tube 1 APPLIC TOPICAL ×2 (07:58→15:35)
[2021-08-09] MEDS: Pantoprazole Sodium 40 MG Tablet PO (08:00)
[2021-08-09 10:00] VITALS: PULSE 78
--- NOTE | 2021-08-09 11:02 | PCM.PN.SRG ---
Subjective Subjective not ambulating well doesn't like to sit up in chair for a period of time Objective Data Objective Data Vital Signs: Vital Signs Temp Pulse Resp BP Pulse Ox O2 Del Method 98.1 F 78 18 132/50 H 97 Room Air 08/09/21 05:56 08/09/21 10:00 08/09/21 05:56 08/09/21 05:56 08/09/21 05:56 08/09/21 05:56 Oxygen Delivery Method Room Air Weight: 66.9 kg Body Mass Index (BMI) 27.8 Intake & Output: Intake and Output for Last 24 Hours 08/07/21 08/08/21 08/09/21 23:59 23:59 23:59 Intake Total 2615.00 / 2615.00 2632 / 2632 200 / 200 Output Total 1575 / 1575 780 / 780 Balance 1040.00 / 1040.00 1852 / 1852 200 / 200 Lab / Micro Data Attestation: I reviewed the patient's lab results. Result Diagrams: 08/08/21 03:59 08/08/21 03:59 Labs: Laboratory Results - last 24 hr 08/08/21 11:54: POC Glucose 153 H 08/08/21 17:28: POC Glucose 239 H 08/09/21 05:51: POC Glucose 150 H Micro: Microbiology 08/04/21 10:30 Urine Catheter - Olsen Urine Culture - Final Lactobacillus plantarum 08/04/21 03:05 Urine, Clean Catch Urine Culture - Final Lactobacillus plantarum Rhythm Strip Rhythm Strip: Sinus Tach Rate: 116 Ectopy: None Physical Exam Const alert Resp normal respiratory effort Effort and Inspection: able to speak in complete sentences GI GI Narrative: abdomen is soft and benign wound is well healed and is clean/dry/intact with no drainage Assessment & Plan Assessment/Plan (1) Status post repair of ventral hernia: PLAN: Continue present therapy can discharge to intermediate as per hospitalists
[2021-08-09 11:30] LABS: Bedside Glucose 157 mg/dL (74-106)
--- NOTE | 2021-08-09 11:51 | CASEMGMT ---
Social Work Note Pt has discharge in for today. SW placed a call to Tania at [facility] and updated her. Green sheet is on chart for staff to follow. PAS/RR has been completed previously. Plan: [facility] today Aye Oro WARNING ANALYST, AUDIO VISUAL SECRETARY
[2021-08-09 12:00] VITALS: PULSE 87
--- NOTE | 2021-08-09 12:19 | PN.HOSP_ITS ---
Subjective Subjective Seen and examined today, I discussed her case with general surgery. She is eating a regular diet today and she appears stable for discharge to an extended care facility for inpatient rehab services. Objective Data Objective Data Vital Signs: Vital Signs Temp Pulse Resp BP Pulse Ox O2 Del Method 98.1 F 78 18 132/50 H 97 Room Air 08/09/21 05:56 08/09/21 10:00 08/09/21 05:56 08/09/21 05:56 08/09/21 05:56 08/09/21 05:56 Oxygen Delivery Method Room Air Weight: 66.9 kg Body Mass Index (BMI) 27.8 Intake & Output: Intake and Output for Last 24 Hours 08/07/21 08/08/21 08/09/21 23:59 23:59 23:59 Intake Total 2615.00 / 2615.00 2632 / 2632 200 / 200 Output Total 1575 / 1575 780 / 780 Balance 1040.00 / 1040.00 1852 / 1852 200 / 200 Lab / Micro Data Result Diagrams: 08/08/21 03:59 08/08/21 03:59 Labs: Laboratory Results - last 24 hr 08/08/21 11:54: POC Glucose 153 H 08/08/21 17:28: POC Glucose 239 H 08/09/21 05:51: POC Glucose 150 H 08/09/21 11:22: POC Glucose 157 H Micro: Microbiology 08/04/21 10:30 Urine Catheter - Olsen Urine Culture - Final Lactobacillus plantarum 08/04/21 03:05 Urine, Clean Catch Urine Culture - Final Lactobacillus plantarum Rhythm Strip Rhythm Strip: Sinus Tach Rate: 116 Ectopy: None Physical Exam Const alert, oriented x3 and no apparent distress Constitutional Narrative: Patient appears her stated age General Appearance: cooperative, well kempt and well developed Orientation / Consciousness: awake, oriented to person, oriented to place and oriented to time HEENT normocephalic and moist oral mucous membranes Eyes PERRL, EOMs intact bilaterally and conjunctivae normal Neck supple, no JVD, thyroid normal and no carotid bruits General: trachea midline Resp normal respiratory effort, no retractions, no use of accessory muscles and clear to auscultation bilaterally Auscultation: diminished lung sounds; Negative for crackles, rales, rhonchi or wheezes Cardio regular rate, regular rhythm, S1 normal heart sound, S2 normal heart sound, no murmurs, no rub and no gallops GI soft to palpation, non-tender and non-distended; Negative for hepatosplenomegaly Auscultation: hypoactive bowel sounds Palpation: tender Extremity no clubbing, cyanosis or edema Skin no rashes or lesions noted General Skin Exam: no breakdown Neuro oriented x3, CN's II-XII intact bilaterally, no focal motor deficits and no sensory deficits noted Sensorium / Orientation: awake and alert Speech: speech normal Psych affect normal Appearance: appropriate Assessment & Plan Assessment/Plan (1) Incarcerated ventral hernia: (2) Complete small bowel obstruction: (3) Type 2 diabetes mellitus: (4) GERD (gastroesophageal reflux disease): QUALIFIERS: Esophagitis presence: esophagitis presence not specified Qualified Code(s): K21.9 - Gastro-esophageal reflux disease without esophagitis (5) Hypothyroidism: QUALIFIERS: Hypothyroidism type: unspecified Qualified Code(s): E03.9 - Hypothyroidism, unspecified (6) Sarcoidosis: PLAN: Plan Impression: #1 type 2 diabetes-continue sliding scale insulin, patient will resume oral medications when she is discharged from the hospital-[facility] paperwork was filled out today for the patient. #2 hypothyroidism-patient will resume her Synthroid #3 sarcoidosis-patient is on hydroxychloroquine, this will be resumed #4 generalized debility-patient is stable for discharge to an extended care faci lity today #5 GERD-patient is on a PPI #6 incarcerated ventral hernia-postop day 6 exploratory laparotomy with resection of infarcted omentum and primary closure of laparotomy-I talked briefly with general surgery about her care Charges/Coding Visit Charges Inpatient E&M: 82555 Subs Hosp L3
[2021-08-09 14:00] VITALS: BP 142/75; PULSE 91; RESP 18; TEMP 36.8; O2SAT 96
[2021-08-09] MEDS: Hydroxychloroquine 200 MG Tablet PO (15:36)
--- NOTE | 2021-08-09 18:35 | NURSING ---
report called to [facility]
[2021-08-09 20:33] VITALS: BP 142/77; PULSE 99; RESP 18; TEMP 36.9; O2SAT 95
--- NOTE | 2021-08-28 12:07 | PCM.DC.SUM ---
Providers Date of Admission: 08/04/21 Primary Care Physician: Dr. Regine Mas MD Consultations 08/04/21 10:00 Consult: Hospitalist Routine Consulting Provider: Remy Mccord Reason for Consult: comanagement of comorbidities EMERGENT Consult: No MD Notified: Yes Date Notified: 08/04/21 Time Notified: 10:01 Method of Notification: ED Physician Initiated Reason For Visit: INCARCERATED VENTRAL HERNIA Diagnosis Discharge Diagnosis (1) Status post repair of ventral hernia: Status: Acute Code(s): Z98.890 - Other specified postprocedural states; Z87.19 - Personal history of other diseases of the digestive system Medications at Discharge Home Medications albuterol sulfate 2.5 mg/3 mL (0.083 %) solution for nebulization 2.5 mg inhalation Q6H PRN PRN Shortness Of Breath 12/21/15 ergocalciferol (vitamin D2) 1,250 mcg (50,000 unit) capsule (Vitamin D2) 50 mcg PO QMONTH 12/21/15 glimepiride 1 mg tablet 1 mg PO DAILY 12/21/15 hydroxychloroquine 200 mg tablet 200 mg PO BIDCM Sarcoidosis 12/21/15 levothyroxine 50 mcg tablet 50 mcg PO DAILY hypothyroid 12/21/15 pantoprazole 40 mg tablet,delayed release 40 mg PO DAILY GERD 12/21/15 fluticasone propionate 44 mcg/actuation HFA aerosol inhaler (Flovent HFA) 2 puff inhalation BID 11/02/17 acetaminophen 500 mg tablet 500 mg PO Q6H PRN PRN PAIN 1-10 #0 tabs 08/09/21 Hospital Course Operations - (Exploratory laparotomy. Resection of infarcted omentum. Primary closure of the laparotomy) Summary of Care Provided Minutes Spent on Discharge: 25 Hospital Course: Patient is an 85 y/o F who presented with hip pain secondary to a fall. CT scan was obtained in the ED demonstrating a bowel obstruction and a ventral hernia with possible early signs of strangulation. Patient also had an elevated WBC. Dr. Escobar performed an Exploratory laparotomy, Resection of infarcted omentum and Primary closure of the laparotomy on 08/04/21. Patient tolerated the procedure well. She developed a post-operatively ileus, which resolved on POD #5. Patient, during her hospitalization, was working with physical and occupational therapy for rehabilitation. Hospitalist was also consulted upon admission for medical management. Upon discharge, patient had passed flatus. She tolerated her current diet. She denies nausea, vomiting. She is being discharged to [facility]. Physical Exam GI normal to inspection, nondistended, normoactive bowel sounds GI Narrative: Incision c/d/i. No erythema or infection noted Weight / BMI Weight Weight: 147 lb 7.828 oz Body Mass Index (BMI) 27.8 ABG / Lab / Microbiology Data Result Diagrams: 08/08/21 03:59 08/08/21 03:59 Microbiology: Microbiology 08/09/21 15:45 Nasal Secretion SARS-CoV-2 Antigen (Rapid) - Final 08/04/21 10:30 Urine Catheter - Olsen Urine Culture - Final Lactobacillus plantarum 08/04/21 03:05 Urine, Clean Catch Urine Culture - Final Lactobacillus plantarum Meaningful Use Info Meaningful Use Diagnoses (Choose all that apply): None applicable Discharge Plan Admission Admit Date/Time: 08/04/21 09:55 Primary Reason for Your Visit: incarerated ventral hernia Attending Provider: Kendall Escobar Primary Care Provider: Regine Mas Consulting Providers: Remy Mccord ; Kendall Escobar ; Win Curtis Discharge Orders/Prescriptions Prescriptions: New acetaminophen 500 mg Tablet 500 mg PO Q6H PRN PRN (Reason: PAIN 1-10) Qty: 0 0RF Continued albuterol sulfate 2.5 MG/3 ML solution for nebulization 2.5 mg inhalation Q6H PRN PRN (Reason: Shortness Of Breath) hydroxychloroquine 200 MG tablet 200 mg PO BIDCM glimepiride 1 MG tablet 1 mg PO DAILY levothyroxine 50 MCG tablet 50 mcg PO DAILY pantoprazole 40 MG tablet 40 mg PO DAILY ergocalciferol (vitamin D2) [Vitamin D2] 50,000 UNIT capsule 50 mcg PO QMONTH fluticasone propionate [Flovent HFA] 1 INHALER inhaler 2 puff inhalation BID Discontinued dicyclomine 10 MG capsule 10 mg PO TIDAC PRN (Reason: Diarrhea/Loose Stools) fluticasone propionate 1 SPRAY spray,suspension 1 spray NASAL DAILY albuterol sulfate [Ventolin HFA] 18 GM HFA aerosol inhaler 2 puff IH Q4H PRN PRN (Reason: Sob &/Or Wheezing) nystatin-triamcinolone 1 APPLIC cream 1 applic topical BID Qty: 1 0RF cephalexin 500 MG capsule 500 mg PO Q6 Qty: 28 0RF Referrals / Follow Up: Regine Mas MD [Primary Care Provider] - Kendall Escobar MD [STAFF PHYSICIAN] - In 1 Week (call his office to schedule appointment for next week) Disposition Disposition (needs filled in before D/C Order can be placed): Penitentiary Facility Charges/Coding Visit Charges Inpatient E&M: 34238 Disch Hosp (No charge post-op)
== END 2021-08-09 21:30 | disposition skilled nursing facility (03) | DRG 354 ==
LOC: ED 06:53 → MS3 07:20
PROVIDERS: Family Medicine; Physician Assistant; Admitting Provider Surgery; Emergency Provider Emergency Medicine; PCP Internal Medicine; Visit Provider Surgery
PROC: 0WQF0ZZ Repair Abdominal Wall, Open Approach (ICD-10-PCS; CPT 49000; principal; 2021-08-04 08:10)
DX: K43.6 Other and unspecified ventral hernia with obstruction, without gangrene (principal); K91.89 Other postprocedural complications and disorders of digestive system; K56.7 Ileus, unspecified; N39.0 Urinary tract infection, site not specified; E11.65 Type 2 diabetes mellitus with hyperglycemia; E03.9 Hypothyroidism, unspecified; D86.9 Sarcoidosis, unspecified; B96.89 Other specified bacterial agents as the cause of diseases classified elsewhere; K21.9 Gastro-esophageal reflux disease without esophagitis; J45.909 Unspecified asthma, uncomplicated; R33.9 Retention of urine, unspecified; R53.81 Other malaise; Z79.84 Long term (current) use of oral hypoglycemic drugs; Z79.899 Other long term (current) drug therapy
CPT/HCPCS: 36415; 71045; 74018; 74019; 74176; 80048; 80053; 81001; 82962; 83605; 83735; 84100; 84484; 85025; 85027; 87077; 87086; 87088; 87426; 88302; 88305; 93005; 97110; 97116; 97162; 97166; 97530; 97535; 99251; 99285; J7030; J7050; J7120; P9612; A4216; G0463; J2405

== ENCOUNTER 2021-08-12 04:00 | Outpatient (REF) | payer SELFPAY ==
[2021-08-12 08:18] LABS: Hematocrit 30.4 % (37-47); Hemoglobin 10.1 g/dL (12.0-15.0); Mean Corp Hgb Conc 33.2 g/dL (32-36); Mean Corpuscular Hgb 29.3 pg (27.0-32.0); Mean Corpuscular Volume 88.1 fL (81-99); Mean Platelet Vol. 11.4 fl (6.2-12.0); Platelet Count 260 K/mm3 (150-450); RBC Distribution Width CV 14.4 % (11.6-14.6); RBC Distribution Width SD 44.1 fl (35.1-43.9); Red Blood Count 3.45 M/mm3 (4.2-5.4); White Blood Count 9.5 K/mm3 (4.4-11.0)
== END 2021-08-12 23:59 | disposition home or self-care (01) ==
LOC: OLS.SW1020 04:00
PROVIDERS: PCP Internal Medicine; Visit Provider Family Medicine
DX: E11.9 Type 2 diabetes mellitus without complications (principal)
CPT/HCPCS: 36415; 85027

== ENCOUNTER → 2021-08-19 | Outpatient (REF) | payer SELFPAY ==
[2021-08-19 08:57] LABS: Hematocrit 29.7 % (37-47); Hemoglobin 9.5 g/dL (12.0-15.0); Mean Corpuscular Hgb 28.5 pg (27.0-32.0); Mean Corpuscular Volume 89.2 fL (81-99); Mean Platelet Vol. 10.9 fl (6.2-12.0); Platelet Count 338 K/mm3 (150-450); RBC Distribution Width CV 14.3 % (11.6-14.6); RBC Distribution Width SD 45.6 fl (35.1-43.9); Red Blood Count 3.33 M/mm3 (4.2-5.4)
[2021-08-19 09:08] LABS: Anion Gap 8 (5-15); BUN 11 mg/dL (7-18); BUN/Creat Ratio 15.3 RATIO (10-20); Calcium,Total 9.1 mg/dL (8.5-10.1); Chloride 105 mmol/L (98-107); Creatinine, Serum 0.72 mg/dL (0.55-1.02); EST Glomerular Filtration Rate 82 mL/min (>60); Est Glom Filt Rate - Afr Amer 100 mL/min (>60); Glucose 90 mg/dL (74-106); Potassium 3.9 mmol/L (3.5-5.1); Sodium Level 139 mmol/L (136-145)
== END | disposition home or self-care (01) ==
LOC: OLS.SW1020 04:00
PROVIDERS: PCP Internal Medicine; Visit Provider Family Medicine
DX: D86.9 Sarcoidosis, unspecified (principal)
CPT/HCPCS: 36415; 80048; 85027

== ENCOUNTER 2022-08-17 15:25 | Emergency (ER) | payer MEDICARE, MEDICAID, SELFPAY ==
[2022-08-17 15:27] VITALS: BP 150/64; PULSE 73; RESP 18; TEMP 37.1; O2SAT 96; BMI 28.0
--- NOTE | 2022-08-17 15:49 | CT_ITS ---
EXAM: CT ABDOMEN AND PELVIS WITH INTRAVENOUS CONTRAST CLINICAL INDICATION: abdominal pain TECHNIQUE: Helically acquired images were obtained of the abdomen and pelvis with intravenous contrast. This CT exam was performed using one or more of the following dose reduction techniques: automated exposure control, adjustment of the mA and/or kV according to patient size, and/or use of iterative reconstruction technique. CONTRAST: IV 100mL Isovue-300 COMPARISON: 08/04/2021. FINDINGS: LOWER THORAX: Unremarkable. Lung bases are clear. No cardiomegaly. No significant pericardial effusion. ABDOMEN: LIVER: Unremarkable. Homogeneous. No focal mass. GALLBLADDER AND BILE DUCTS: Unremarkable. No calcified gallstones. No gallbladder distention or wall edema. No intra- or extrahepatic biliary ductal dilation. PANCREAS: Unremarkable. No focal cystic or solid mass. SPLEEN: Unremarkable. Normal size without focal cystic or solid mass. ADRENALS: Unremarkable. No nodules. KIDNEYS AND URETERS: Upper pole left renal scarring. Kidneys are otherwise unremarkable. No hydronephrosis. STOMACH AND BOWEL: Moderate size infraumbilical abdominal wall hernia contains multiple small bowel loops. Increased compared to the prior study. No proximal obstruction. No focal inflammatory change. PELVIS: APPENDIX: No evidence of acute appendicitis. BLADDER: Unremarkable. REPRODUCTIVE: Unremarkable as visualized. No mass. ABDOMEN and PELVIS: INTRAPERITONEAL SPACE: Unremarkable. No ascites or other fluid collection. No free air. BONES/JOINTS: Unremarkable. No suspicious lytic or blastic abnormality. SOFT TISSUES: Infraumbilical abdominal wall hernia. VASCULATURE: Unremarkable. Abdominal aorta is normal in caliber. LYMPH NODES: Shotty retroperitoneal adenopathy. CT/Abdomen/Pelvis W IV Cont ONLY IMPRESSION: 1. No acute findings. 2. Abdominal wall hernia containing small bowel. No obstruction. Electronically Signed: Manda Nichols MD at 18:27 EDT Reading Location ID and State: [id number] / Tel , Service support ,
--- NOTE | 2022-08-17 15:50 | ED.VIS.GI ---
HPI HPI - GI History of Present Illness Chief Complaint: Constipation Narrative Narrative: 86-year-old female presenting with constipation since Wednesday. Patient states she did have some constipation and took a senna Wednesday and had a small bowel movement on . She has not taken the senna every day but has taken a couple throughout the last 5 days and has not had any bowel movement. She states is not passing gas. She states her abdomen feels crampy and diffuse Mp uncomfortable. She does have history of incarcerated ventral hernia. This was repaired by Dr. Escobar last year. [facility] Medical History Asthma Cholecystectomy planned Generalized weakness GERD (gastroesophageal reflux disease) Hypothyroidism Injury of right hip Sarcoidosis Type 2 diabetes mellitus Urinary tract infection Home Medications albuterol sulfate 2.5 mg/3 mL (0.083 %) solution for nebulization 2.5 mg inhalation Q6H PRN PRN Shortness Of Breath 12/21/15 [History Last Taken 11/02/17] ergocalciferol (vitamin D2) 1,250 mcg (50,000 unit) capsule (Vitamin D2) 50 mcg PO QMONTH 12/21/15 [History Last Taken 11/01/17] glimepiride 1 mg tablet 1 mg PO DAILY 12/21/15 [History Last Taken 11/02/17] hydroxychloroquine 200 mg tablet 200 mg PO BIDCM Sarcoidosis 12/21/15 [History Last Taken 11/02/17] levothyroxine 50 mcg tablet 50 mcg PO DAILY hypothyroid 12/21/15 [History Last Taken 11/02/17] pantoprazole 40 mg tablet,delayed release 40 mg PO DAILY GERD 12/21/15 [History Last Taken 11/02/17] fluticasone propionate 44 mcg/actuation HFA aerosol inhaler (Flovent HFA) 2 puff inhalation BID 11/02/17 [History Last Taken 11/02/17] acetaminophen 500 mg tablet 500 mg PO Q6H PRN PRN PAIN 1-10 #0 tabs 08/09/21 [Rx Last Taken Unknown] cephalexin 500 mg capsule 500 mg PO Q12 #14 CAPSULES 08/17/22 [Rx Last Taken Unknown] polyethylene glycol 3350 17 gram/dose oral powder (Miralax) 17 g PO DAILY PRN constipation #119 grams 08/17/22 [Rx Last Taken Unknown] Allergy/AdvReac Type Severity Reaction Status Date / Time adhesive AdvReac Rash Verified 08/17/22 15:34 alendronate sodium AdvReac Nausea/Vom/ Verified 08/17/22 15:34 Diarrhea gabapentin [From Neurontin] AdvReac Other Verified 08/17/22 15:34 hydrocodone [From Vicodin] AdvReac Other Verified 08/17/22 15:34 naproxen [From Aleve] AdvReac Nausea/Vom/ Verified 08/17/22 15:34 Diarrhea Surgical History H/O: Status post repair of ventral hernia Social History Smoking Status: Never smoker ROS ROS ED Constitutional Constitutional ED: Denies chills, fever(s) or sweats Eyes Eyes: Denies blurry vision or change in vision ENT ENT ED: Denies ear pain or sore throat Cardiovascular Cardiovascular: Denies chest pain, palpitations or racing heartbeat Respiratory/Chest Respiratory/Chest: Denies cough, dyspnea or sputum Gastrointestinal Gastrointestinal: Reports abdominal pain and nausea; Denies constipation, diarrhea or vomiting Genitourinary Genitourinary ED: Denies dysuria, hematuria or urinary frequency Musculoskeletal Musculoskeletal: Denies arthralgias, myalgias or neck pain Integumentary Denies abscess, Abrasions or rash Neurologic Neurologic: Denies headache(s), paresthesias or weakness Psychiatric Psychiatric: Denies anxiety, depression, suicidal ideation or suicidal thoughts Endocrine Endocrinology: Denies polydipsia or polyuria EXAM Physical Exam Const Vital Signs: 08/17/22 15:27 08/17/22 18:27 Temperature 98.7 F Temperature Source Oral Pulse Rate 73 63 Respiratory Rate 18 18 Blood Pressure 150/64 H 132/65 H Blood Pressure Mean 92 87 Pulse Ox 96 96 Oxygen Delivery Method Room Air Room Air Positive well nourished General Appearance ED: NAD; Negative for pallor HEENT Reports moist mucous membranes normocephalic and atraumatic Eyes PERRL Resp normal respiratory effort and clear to auscultation bilaterally Auscultation: Negative for rales, rhonchi or wheezes Cardio regular rate and regular rhythm GI Palpation: tender periumbilical Back/Spine no CVA tenderness Neuro CN's II-XII intact bilaterally Sensorium / Orientation: alert, oriented to person, oriented to place and oriented to time Motor Exam: strength 5/5 throughout Psych mental status grossly normal Skin General Skin Exam: Negative for jaundice or pallor MDM MDM MDM Narrative Medical decision making narrative: Patient presenting with constipation. She has history of incarcerated ventral hernia last year. She has some nausea as well. Differential includes constipation, electrolyte abnormalities, dehydration, anemia, small bowel obstruction, colitis, diverticulitis, gastritis, pancreatitis, UTI, pyelonephritis. CBC to assess white blood cell count, hemoglobin, platelets. CMP to assess liver function, renal function. Lipase to assess for pancreatitis. Urinalysis to assess for UTI. Patient declines analgesia but states she will take something for nausea and she is given Reglan. She is given a liter of normal saline. We will obtain a CT of the abdomen pelvis with IV contrast. CBC was unremarkable. CMP shows normal liver enzymes. Creatinine essentially unchanged at 1.14. Glucose 190 without anion gap. Lipase negative. Urinalysis consistent with UTI. CT of the abdomen pelvis was obtained and shows a ventral wall hernia without strangulation or incarceration. Patient counseled on findings. She will be started on Keflex for UTI. She is to follow-up with Dr. Escobar regarding her hernia. She was placed on MiraLAX. Return precautions were discussed. Impression: 1. Constipation 2. Ventral wall hernia 3. UTI Lab Data Labs: Laboratory Results - last 24 hr 08/17/22 08/17/22 16:15 16:40 WBC 6.8 RBC 4.66 Hgb 14.0 Hct 42.1 MCV 90.3 MCH 30.0 MCHC 33.3 RDW Std Deviation 45.6 H RDW Coeff of Julián 13.8 Plt Count 198 MPV 10.2 Immature Gran % (Auto) 0.400 Neut % (Auto) 61.7 Lymph % (Auto) 24.8 [place] % (Auto) 7.5 Eos % (Auto) 5.0 Baso % (Auto) 0.6 Absolute Neuts (auto) 4.2 Absolute Lymphs (auto) 1.68 Nucleated RBC % 0 Sodium 139 Potassium 3.9 Chloride 110 H Carbon Dioxide 24.0 Anion Gap 5 BUN 24 H Creatinine 1.14 H Estim Creat Clear Calc 27.72 Est GFR (MDRD) Af Amer 58 L Est GFR (MDRD) Non-Af 48 L BUN/Creatinine Ratio 21.1 H Glucose 190 H Calcium 9.5 Total Bilirubin 0.40 AST 16 ALT 20 Alkaline Phosphatase 64 Total Protein 7.3 Albumin 3.4 Globulin 3.9 Albumin/Globulin Ratio 0.9 Lipase 26 Urine Color Yellow Urine Clarity Clear Urine pH 5.0 Ur Specific [place] 1.020 Urine Protein Negative Urine Glucose (UA) Normal Urine Ketones Negative Urine Occult Blood 10 H Urine Nitrite Positive H Urine Bilirubin Negative Urine Urobilinogen Normal Ur Leukocyte Esterase 500 H Urine RBC 0 SEEN Urine WBC 10-25 SEEN Ur Squamous Epith Cells 0-5 SEEN Urine Bacteria 0 SEEN Urine Mucus 0 SEEN Radiography Diagnostic Testing: Clinical Impression(s) from Imaging Studies Abdomen/Pelvis CT 08/17/22 15:49 IMPRESSION: 1. No acute findings. 2. Abdominal wall hernia containing small bowel. No obstruction. Electronically Signed: Manda Nichols MD at 18:27 EDT Reading Location ID and State: [id number] / Tel , Service support , Discharge Plan Triage Chief Complaint: Constipation ED Provider: Mohamud Kerr Dx/Rx/DC Orders Instructions: ED Constipation (Adult), ED Hernia (Adult), ED Cystitis Female Adult Prescriptions: New polyethylene glycol 3350 [Miralax] 17 gram/dose powder 17 g PO DAILY PRN (Reason: constipation) Qty: 119 0RF cephalexin 500 mg capsule 500 mg PO Q12 Qty: 14 0RF No Action albuterol sulfate 2.5 MG/3 ML solution for nebulization 2.5 mg inhalation Q6H PRN PRN (Reason: Shortness Of Breath) hydroxychloroquine 200 MG tablet 200 mg PO BIDCM glimepiride 1 MG tablet 1 mg PO DAILY levothyroxine 50 MCG tablet 50 mcg PO DAILY pantoprazole 40 MG tablet 40 mg PO DAILY ergocalciferol (vitamin D2) [Vitamin D2] 50,000 UNIT capsule 50 mcg PO QMONTH fluticasone propionate [Flovent HFA] 1 INHALER inhaler 2 puff inhalation BID acetaminophen 500 mg Tablet 500 mg PO Q6H PRN PRN (Reason: PAIN 1-10) Qty: 0 0RF Primary Care Provider: Regine Mas Referrals: Regine Mas MD [Primary Care Provider] - Kendall Escobar MD [Med Staff - Active Staff] - 3-5 Days Disposition Disposition: Home, Self Care Discharge Date/Time: 08/17/22 19:17
[2022-08-17] MEDS: 0.9% Normal Saline 1,000 ML 1000 ML IV (16:21)
[2022-08-17 16:26] LABS: Absolute Lymphocyte Count 1.68 X10^3/uL (0.83-4.51); Absolute Neutrophil Count 4.2 X10^3/uL (2.0-7.7); Basophil# 0.04 X10^3/uL; Basophil% 0.6 % (0-1); Eosinophil# 0.34 X10^3/uL; Hematocrit 42.1 % (37-47); Lymphocyte # 1.68 X10^3/ul (0.83-4.51); Lymphocyte % 24.8 % (19-41); Mean Corp Hgb Conc 33.3 g/dL (32-36); Mean Corpuscular Volume 90.3 fL (81-99); Mean Platelet Vol. 10.2 fl (6.2-12.0); Monocyte# 0.51 X10^3/uL; Monocyte% 7.5 % (0-10); NRBC Flagged by Analyzer 0 % (0-5); Neutrophil # 4.17 X10^3/uL (2.7-7.7); Neutrophil % 61.7 % (47-70); Platelet Count 198 K/mm3 (150-450); RBC Distribution Width CV 13.8 % (11.6-14.6); RBC Distribution Width SD 45.6 fl (35.1-43.9); Red Blood Count 4.66 M/mm3 (4.2-5.4); White Blood Count 6.8 K/mm3 (4.4-11.0)
[2022-08-17] MEDS: Metoclopramide 10 MG/2 ML Vial IV (16:30)
[2022-08-17 16:43] LABS: ALB/GLOB Ratio 0.9 RATIO (0.9-2.4); AST(SGOT) 16 U/L (15-37); Alanine Aminotransfer ALT/SGPT 20 U/L (13-56); Albumin, Serum 3.4 g/dL (3.2-5.0); Alkaline Phosphatase 64 U/L (45-117); Anion Gap 5 (5-15); BUN 24 mg/dL (7-18); BUN/Creat Ratio 21.1 RATIO (10-20); Calcium,Total 9.5 mg/dL (8.5-10.1); Chloride 110 mmol/L (98-107); Creatinine, Serum 1.14 mg/dL (0.55-1.02); EST Glomerular Filtration Rate 48 mL/min (>60); Est Glom Filt Rate - Afr Amer 58 mL/min (>60); Estimated Creatinine Clearance 27.72 ml/min; Globulin 3.9 g/dL (2.2-4.2); Glucose 190 mg/dL (74-106); Lipase 26 U/L (13-75); Potassium 3.9 mmol/L (3.5-5.1); Protein, Total 7.3 g/dL (6.4-8.2); Sodium Level 139 mmol/L (136-145)
[2022-08-17 16:44] LABS: Bacteria 0 SEEN /hpf (None Seen); Mucous, Urine 0 SEEN /hpf (<or=2+); Red Blood Cells-Urine 0 SEEN /hpf (0-5)
[2022-08-17 17:18] LABS: Color, Urine Yellow (Yellow); Glucose, Dipstick Normal (Normal); Ketone-Dipstick Negative (Negative); Leukocyte Esterase-Dipstick 500 /ul (Negative); Nitrite-Dipstick Positive (Negative); Occult Blood-Urine 10 /ul (Negative); Protein-Dipstick Negative (Negative); Urine Bilirubin Dipstick Negative (Negative); Urine Clarity Clear (Clear); Urine Urobilinogen Normal (Normal)
[2022-08-17 18:27] VITALS: BP 132/65; PULSE 63; RESP 18; O2SAT 96
[2022-08-17 18:59] LABS: Squamous Epithelial Cells - UA 0-5 SEEN /hpf (5-10); White Blood Cells 10-25 SEEN /hpf (0-5)
[2022-08-17] MEDS: Cephalexin 250 MG Capsule 500 MG PO (19:14)
== END 2022-08-17 19:17 | disposition home or self-care (01) ==
PROVIDERS: Emergency Provider Student in an Organized Health Care Education/Training Program; PCP Internal Medicine; Visit Provider Student in an Organized Health Care Education/Training Program
DX: K59.00 Constipation, unspecified (principal); E11.9 Type 2 diabetes mellitus without complications; N39.0 Urinary tract infection, site not specified; K43.9 Ventral hernia without obstruction or gangrene
CPT/HCPCS: 74177; 80053; 81001; 83690; 85025; 96361; 96374; 99285; Q9967

== ENCOUNTER 2023-06-26 12:05 | Inpatient (IN) | payer MEDICARE, MEDICAID, SELFPAY ==
[2023-06-26] VITALS (13 sets, daily range): BP systolic 93–125; BP diastolic 41–85; PULSE 72–103; RESP 16–24; TEMP 36.2–37; O2SAT 94–98; BMI 28.0; BMI 26.8
--- NOTE | 2023-06-26 12:24 | CT_ITS ---
EXAM: CT ABDOMEN AND PELVIS WITHOUT INTRAVENOUS CONTRAST CLINICAL INDICATION: Right flank pain. TECHNIQUE: Helically acquired images were obtained of the abdomen and pelvis without intravenous contrast. This CT exam was performed using one or more of the following dose reduction techniques: automated exposure control, adjustment of the mA and/or kV according to patient size, and/or use of iterative reconstruction technique. RADIATION DOSE: CTDIvol = 6.74 mGy, DLP = 372.24 mGy-cm COMPARISON: No relevant prior studies available. FINDINGS: LOWER THORAX: Unremarkable. Lung bases are clear. No cardiomegaly. No significant pericardial effusion. ABDOMEN: LIVER: Unremarkable. Homogeneous. GALLBLADDER AND BILE DUCTS: Nonvisualization of the gallbladder is presumably from prior laparoscopic cholecystectomy. No intra- or extrahepatic biliary ductal dilation. PANCREAS: Unremarkable. No focal cystic mass. SPLEEN: Unremarkable. Normal size without focal cystic or solid mass. ADRENALS: Unremarkable. No nodules. KIDNEYS AND URETERS: Unremarkable. Normal renal size and position. No hydronephrosis. STOMACH AND BOWEL: Midline lower anterior abdominal wall hernia containing small bowel loops without obstruction, strangulation or ischemia. No focal inflammatory change. PELVIS: APPENDIX: Normal. BLADDER: Unremarkable. REPRODUCTIVE: Unremarkable as visualized. No mass. ABDOMEN and PELVIS: INTRAPERITONEAL SPACE: Unremarkable. No ascites or other fluid collection. No free air. BONES/JOINTS: Unremarkable. No suspicious lytic or blastic abnormality. SOFT TISSUES: No significant abnormality. VASCULATURE: Unremarkable. Abdominal aorta is non-dilated. LYMPH NODES: Unremarkable. No enlarged lymph nodes. CT/Abdomen/Pelvis without Cont IMPRESSION: 1. Midline lower small bowel hernia without obstruction, strangulation or ischemia. 2. No suspicious acute abnormality in the abdomen and pelvis. Electronically Signed: Shailesh Dominique MD at 13:36 EDT ,
--- NOTE | 2023-06-26 12:25 | EDS_ITS ---
HPI HPI - Female History of Present Illness Chief Complaint: Complaint Detail of Chief Complaint: Right flank pain and dysuria Informant: patient Pain Current Severity: 06/17 Narrative Narrative: Patient presents to the emergency department complaint of right flank pain that started 5 days ago. She complains of dysuria. She called her PCP yesterday and they called her in an antibiotic that she cannot remember the name of. Patient states she had a hard time sleeping last night and had vomiting and dry heaves. Currently rates her pain a 5 out of 10. Patient with prior history of kidney stones. She has frequent UTIs. She denies fevers. [facility] Medical History Asthma Cholecystectomy planned Generalized weakness GERD (gastroesophageal reflux disease) Hypothyroidism Injury of right hip Sarcoidosis Type 2 diabetes mellitus Urinary tract infection Home Medications ?Medication ?Instructions ?Recorded ?Last Taken ?Type albuterol sulfate 2.5 mg/3 mL 2.5 mg inhalation Q6H PRN PRN 12/21/15 11/02/17 History (0.083 %) solution for nebulization Shortness Of Breath ergocalciferol (vitamin D2) 1,250 50 mcg PO QMONTH 12/21/15 11/01/17 History mcg (50,000 unit) capsule (Vitamin D2) glimepiride 1 mg tablet 1 mg PO DAILY 12/21/15 11/02/17 History hydroxychloroquine 200 mg tablet 200 mg PO BIDCM Sarcoidosis 12/21/15 11/02/17 History pantoprazole 40 mg tablet,delayed 40 mg PO DAILY GERD 12/21/15 11/02/17 History release fluticasone propionate 44 2 puff inhalation BID 11/02/17 11/02/17 History mcg/actuation HFA aerosol inhaler (Flovent HFA) acetaminophen 500 mg tablet 500 mg PO Q6H PRN PRN PAIN 1-10 #0 08/09/21 Unknown Rx tabs polyethylene glycol 3350 17 17 g PO DAILY PRN constipation 08/17/22 Unknown Rx gram/dose oral powder (Miralax) #119 grams diphenoxylate-atropine 2.5 1 tab PO BID PRN PRN diarrhea 06/26/23 Unknown History mg-0.025 mg tablet levothyroxine 75 mcg tablet 75 mcg PO DAILY 06/26/23 Unknown History levothyroxine 75 mcg tablet 75 mcg PO DAILY 06/26/23 Unknown History montelukast 10 mg tablet 10 mg PO DAILY 06/26/23 Unknown History montelukast 10 mg tablet 10 mg PO DAILY 06/26/23 Unknown History multivitamin with folic acid 400 1 tab PO DAILY 06/26/23 Unknown History mcg tablet (Daily-Helen (with folic acid)) multivitamin with folic acid 400 1 tab PO DAILY 06/26/23 Unknown History mcg tablet (Daily-Helen (with folic acid)) nitrofurantoin 100 mg PO BID 06/26/23 Unknown History monohydrate/macrocrystals 100 mg capsule nitrofurantoin 100 mg PO BID 06/26/23 Unknown History monohydrate/macrocrystals 100 mg capsule Allergy/AdvReac Type Severity Reaction Status Date / Time adhesive AdvReac Rash Verified 06/26/23 12:12 alendronate sodium AdvReac Nausea/Vom/ Verified 06/26/23 12:12 Diarrhea gabapentin (From Neurontin) AdvReac Other Verified 08/17/22 15:34 hydrocodone (From Vicodin) AdvReac Other Verified 06/26/23 12:12 naproxen (From Aleve) AdvReac Nausea/Vom/ Verified 06/26/23 12:12 Diarrhea Surgical History H/O: Status post repair of ventral hernia Social History Smoking Status: Never smoker ROS ROS ED Review of Systems ROS Unobtainable: other Constitutional Constitutional ED: Reports lethargy; Denies chills, fever(s), sweats or weight loss Eyes Eyes: Denies blurry vision, change in vision or diplopia ENT ENT ED: Denies rhinorrhea or sore throat Cardiovascular Cardiovascular: Denies chest pain, orthopnea or racing heartbeat Respiratory/Chest Respiratory/Chest: Denies cough, dyspnea, dyspnea on exertion, orthopnea or sputum Gastrointestinal Gastrointestinal: Denies abdominal pain, diarrhea, nausea or vomiting Genitourinary Genitourinary ED: Reports dysuria and urinary frequency; Denies hematuria Musculoskeletal Musculoskeletal: Reports back pain; Denies arthralgias, myalgias or neck pain Integumentary Denies abscess, Abrasions or rash Neurologic Neurologic: Denies headache(s) or weakness Psychiatric Psychiatric: Denies anxiety, depression or suicidal thoughts Endocrine Endocrinology: Denies polydipsia, polyphagia or polyuria Hematologic/Lymphatic Hematologic/Lymphatic: Denies easy bleeding, easy bruising or lymphadenopathy Allergic/Immunologic Allergic/Immunologic ED: Denies mouth swelling, tongue swelling or urticaria EXAM Physical Exam Const Vital Signs: 06/26/23 12:08 06/26/23 12:10 06/26/23 12:36 Temperature 98.3 F 98.3 F Temperature Source Oral Oral Pulse Rate 103 H 102 H 85 Respiratory Rate 18 18 18 Blood Pressure 116/76 116/76 93/50 L Blood Pressure Mean 89 89 64 Pulse Ox 94 95 94 Oxygen Delivery Method Room Air Room Air Room Air 06/26/23 13:10 Temperature 98.4 F Temperature Source Oral Pulse Rate 78 Respiratory Rate 18 Blood Pressure 98/53 L Blood Pressure Mean 68 Pulse Ox 96 Oxygen Delivery Method Room Air Positive well nourished and well developed General Appearance ED: well developed and NAD HEENT Reports TM's clear and moist mucous membranes normocephalic and atraumatic; Negative for trauma or tenderness Tympanic Membrane ED: Yes TM's clear Eyes PERRL and EOMs intact bilaterally General Eye ED: Negative for pale conjunctiva or scleral icterus Neck no lymphadenopathy, supple and no JVD General: Negative for tenderness Chest Wall inspection of chest normal and palpation of chest normal Chest: Negative for tenderness Resp normal respiratory effort and clear to auscultation bilaterally Effort and Inspection: Negative for respiratory distress or pain with movement Auscultation: Negative for rhonchi, wheezes or diminished lung sounds Cardio regular rate, regular rhythm, S1 normal heart sound, S2 normal heart sound and no murmurs Peripheral Pulses: pulses 2+ throughout GI normal to inspection, nondistended, normoactive bowel sounds, soft to palpation, non-tender, non-distended and no masses Back/Spine no thoracic nor lumbar tenderness Back/Spine Narrative: Mild right CVA tenderness Extremity normal to inspection General Extremety ED: Negative for edema General Extremity: Negative for edema Neuro oriented x3, CN's II-XII intact bilaterally, no sensory deficits noted and gait normal Sensorium / Orientation: awake, alert, oriented to person, oriented to place and oriented to time Motor Exam: strength 5/5 throughout and strength abnormal Psych mental status grossly normal Skin no rashes or lesions noted and no wounds MDM MDM MDM Narrative Medical decision making narrative: Patient presents to the emergency department with dysuria and vomiting. History of UTIs and kidney stones. IV line established. CBC with differential count 17.9 with hemoglobin of of 13 and hematocrit of 39.9. Chemistries showed a sodium of 139 potassium 4.4. BUN 30 creatinine 1.58. Urinalysis positive for infection. Urine culture sent. She was started on Rocephin 1 g IV. Urine culture sent. Patient had a CT scan of the abdomen pelvis as well there was no evidence of kidney stone or other acute disease process. She does have a large ventral hernia without signs of obstruction or incarceration. Case discussed with hospitalist will evaluate patient for admission Lab Data Attestation: I reviewed the patient's lab results. Labs: Laboratory Results - last 24 hr 06/26/23 06/26/23 12:30 13:08 WBC 17.9 H RBC 4.50 Hgb 13.3 Hct 39.9 MCV 88.7 MCH 29.6 MCHC 33.3 RDW Std Deviation 42.2 RDW Coeff of Julián 13.1 Plt Count MPV 10.8 Immature Gran % (Auto) 0.800 Neut % (Auto) 91.5 H Lymph % (Auto) 1.9 L [place] % (Auto) 4.7 Eos % (Auto) 0.5 Baso % (Auto) 0.6 Absolute Neuts (auto) 16.4 H Absolute Lymphs (auto) 0.34 L Nucleated RBC % 0 Platelet Estimate ADEQUATE Sodium 139 Potassium 4.4 Chloride 109 H Carbon Dioxide 24.0 Anion Gap 6 BUN 30 H Creatinine 1.58 H Estim Creat Clear Calc 22.85 Est GFR (MDRD) Af Amer 40 L Est GFR (MDRD) Non-Af 33 L BUN/Creatinine Ratio 19.0 Glucose 238 H Lactic Acid 2.3 H* Calcium 9.9 Urine Color Yellow Urine Clarity Sl. Cloudy Urine pH 5.0 Ur Specific [place] 1.020 Urine Protein 30 H Urine Glucose (UA) Normal Urine Ketones Negative Urine Occult Blood 25 H Urine Nitrite Positive H Urine Bilirubin Negative Urine Urobilinogen Normal Ur Leukocyte Esterase 500 H Urine RBC 0-5 SEEN Urine WBC 25-50 SEEN Ur Squamous Epith Cells 0-5 SEEN Urine Bacteria 2+ Urine Mucus 0 SEEN Radiography Diagnostic Testing: Clinical Impression(s) from Imaging Studies Abdomen/Pelvis CT 06/26/23 12:24 IMPRESSION: 1. Midline lower small bowel hernia without obstruction, strangulation or ischemia. 2. No suspicious acute abnormality in the abdomen and pelvis. Electronically Signed: Shailesh Dominique MD at 13:36 EDT , Discharge Plan Triage Chief Complaint: Complaint ED Provider: Smith Perry Dx/Rx/DC Orders Clinical Impression: Acute UTI, Acute pyelonephritis, Transient hypotension, Acidosis, lactic, Sepsis Prescriptions: No Action albuterol sulfate 2.5 MG/3 ML solution for nebulization 2.5 mg inhalation Q6H PRN PRN (Reason: Shortness Of Breath) hydroxychloroquine 200 MG tablet 200 mg PO BIDCM glimepiride 1 MG tablet 1 mg PO DAILY pantoprazole 40 MG tablet 40 mg PO DAILY ergocalciferol (vitamin D2) [Vitamin D2] 50,000 UNIT capsule 50 mcg PO QMONTH fluticasone propionate [Flovent HFA] 1 INHALER inhaler 2 puff inhalation BID acetaminophen 500 mg Tablet 500 mg PO Q6H PRN PRN (Reason: PAIN 1-10) Qty: 0 0RF polyethylene glycol 3350 [Miralax] 17 gram/dose powder 17 g PO DAILY PRN (Reason: constipation) Qty: 119 0RF diphenoxylate-atropine 2.5-0.025 mg tablet 1 tab PO BID PRN PRN (Reason: diarrhea) levothyroxine 75 mcg tablet 75 mcg PO DAILY montelukast 10 mg tablet 10 mg PO DAILY nitrofurantoin monohyd/m-cryst 100 mg capsule 100 mg PO BID multivitamin with folic acid [Daily-Helen (with folic acid)] 400 mcg tablet 1 tab PO DAILY levothyroxine 75 mcg tablet 75 mcg PO DAILY montelukast 10 mg tablet 10 mg PO DAILY nitrofurantoin monohyd/m-cryst 100 mg capsule 100 mg PO BID multivitamin with folic acid [Daily-Helen (with folic acid)] 400 mcg tablet 1 tab PO DAILY Primary Care Provider: Regine Mas Referrals: Regine Mas MD [Primary Care Provider] - Print Language: Urdu Disposition Disposition: Acute Care Hospital [facility]
[2023-06-26] MEDS: Ondansetron 4 MG/2 ML Vial IV (12:33)
[2023-06-26] MEDS: 0.9% Normal Saline (1000mL) 1,000 ML 150 ML IV ×2 (12:33→22:21)
[2023-06-26 12:41] LABS: Absolute Lymphocyte Count 0.34 X10^3/uL (0.83-4.51); Absolute Neutrophil Count 16.4 X10^3/uL (2.0-7.7); Basophil% 0.6 % (0-1); Eosinophil# 0.09 X10^3/uL; Eosinophils% 0.5 % (0-5); Hematocrit 39.9 % (37-47); Hemoglobin 13.3 g/dL (12.0-15.0); Lymphocyte # 0.34 X10^3/ul (0.83-4.51); Lymphocyte % 1.9 % (19-41); Mean Corp Hgb Conc 33.3 g/dL (32-36); Mean Corpuscular Hgb 29.6 pg (27.0-32.0); Mean Corpuscular Volume 88.7 fL (81-99); Mean Platelet Vol. 10.8 fl (6.2-12.0); Monocyte# 0.84 X10^3/uL; Monocyte% 4.7 % (0-10); NRBC Flagged by Analyzer 0 % (0-5); Neutrophil # 16.38 X10^3/uL (2.7-7.7); Neutrophil % 91.5 % (47-70); POSITIVE COUNT YES; POSITIVE DIFFERENTIAL YES; RBC Distribution Width CV 13.1 % (11.6-14.6); RBC Distribution Width SD 42.2 fl (35.1-43.9); White Blood Count 17.9 K/mm3 (4.4-11.0)
[2023-06-26 12:56] LABS: Anion Gap 6 (5-15); BUN 30 mg/dL (7-18); Calcium,Total 9.9 mg/dL (8.5-10.1); Chloride 109 mmol/L (98-107); Creatinine, Serum 1.58 mg/dL (0.55-1.02); EST Glomerular Filtration Rate 33 mL/min (>60); Est Glom Filt Rate - Afr Amer 40 mL/min (>60); Estimated Creatinine Clearance 22.85 ml/min; Glucose 238 mg/dL (74-106); Potassium 4.4 mmol/L (3.5-5.1); Sodium Level 139 mmol/L (136-145)
[2023-06-26 13:04] LABS: Differential Indicated SCAN CRITERIA MET
[2023-06-26 13:05] LABS: Platelet Estimate ADEQUATE (ADEQ)
[2023-06-26 13:14] LABS: Mucous, Urine 0 SEEN /hpf (<or=2+)
[2023-06-26 13:17] LABS: Lactic Acid 2.3 mmol/L (0.4-1.9)
[2023-06-26 13:20] LABS: Color, Urine Yellow (Yellow); Glucose, Dipstick Normal (Normal); Ketone-Dipstick Negative (Negative); Leukocyte Esterase-Dipstick 500 /ul (Negative); Nitrite-Dipstick Positive (Negative); Occult Blood-Urine 25 /ul (Negative); Protein-Dipstick 30 mg/dl (Negative); Urine Bilirubin Dipstick Negative (Negative); Urine Clarity Sl. Cloudy (Clear); Urine Urobilinogen Normal (Normal)
[2023-06-26 13:27] LABS: Bacteria 2+ /hpf (None Seen); Red Blood Cells-Urine 0-5 SEEN /hpf (0-5); Squamous Epithelial Cells - UA 0-5 SEEN /hpf (5-10); White Blood Cells 25-50 SEEN /hpf (0-5)
--- NOTE | 2023-06-26 13:43 | HP.PCM_ITS ---
HPI - General General Date of Admission: 06/26/23 Date of Service: 06/26/23 Chief Complaint: right flank pain HPI Narrative TARA GUPTA, is a 87 F with a PMH as outlined who presents via the ED on 06/26/2023 with a complaint of right flank pain and dysuria. Her symptoms started 5 days prior to admission. She denied any fever or chills, but admitted to nausea and dry heaving. She has a history of kidney stones. She called her PCP the day before admission, who called in an antibiotic, but she could not remember hte name of the antibiotic. Her symptoms persisted so she came in to the ED. She does have a history of UTIs. Vitals in the ED were temp of 98/53, DE of 78, RR of 18 and temp of 98.4F. She was saturating at 96% on room air. CBC showed hb of 13.3, wbc of 17.9; platelet count was given due to clumping. Chemistry shows sodium of 139 with potassium of 4.4 and creatinine of 1.58. Lactic acid was 2.3. Urinalysis showed 2+ bacteria. CT of the abdomen and pelvis showed no acute intra-abdominal pathology and showed a midline lower small bowel hernia without obstruction, strangulation or ischemia. She has been admitted to be managed for UTI. [facility] Medical History Asthma Cholecystectomy planned Generalized weakness GERD (gastroesophageal reflux disease) Hypothyroidism Injury of right hip Sarcoidosis Type 2 diabetes mellitus Urinary tract infection Home Medications ?Medication ?Instructions ?Recorded ?Last Taken ?Type albuterol sulfate 2.5 mg/3 mL 2.5 mg inhalation Q6H PRN PRN 12/21/15 11/02/17 History (0.083 %) solution for nebulization Shortness Of Breath ergocalciferol (vitamin D2) 1,250 50 mcg PO QMONTH 12/21/15 06/26/23 History mcg (50,000 unit) capsule (Vitamin D2) glimepiride 1 mg tablet 1 mg PO DAILY 12/21/15 06/26/23 History hydroxychloroquine 200 mg tablet 200 mg PO BIDCM Sarcoidosis 12/21/15 06/26/23 History pantoprazole 40 mg tablet,delayed 40 mg PO DAILY GERD 12/21/15 06/26/23 History release fluticasone propionate 44 2 puff inhalation BID 11/02/17 11/02/17 History mcg/actuation HFA aerosol inhaler (Flovent HFA) acetaminophen 500 mg tablet 500 mg PO Q6H PRN PRN PAIN 1-10 #0 08/09/21 Unknown Rx tabs polyethylene glycol 3350 17 17 g PO DAILY PRN constipation 08/17/22 Unknown Rx gram/dose oral powder (Miralax) #119 grams levothyroxine 75 mcg tablet 75 mcg PO DAILY 06/26/23 06/26/23 History montelukast 10 mg tablet 10 mg PO DAILY 06/26/23 06/25/23 History multivitamin with folic acid 400 1 tab PO DAILY 06/26/23 06/26/23 History mcg tablet (Daily-Helne (with folic acid)) nitrofurantoin 100 mg PO BID 06/26/23 06/26/23 History monohydrate/macrocrystals 100 mg capsule Allergy/AdvReac Type Severity Reaction Status Date / Time adhesive AdvReac Rash Verified 06/26/23 12:12 alendronate sodium AdvReac Nausea/Vom/ Verified 06/26/23 12:12 Diarrhea gabapentin (From Neurontin) AdvReac Other Verified 08/17/22 15:34 hydrocodone (From Vicodin) AdvReac Other Verified 06/26/23 12:12 naproxen (From Aleve) AdvReac Nausea/Vom/ Verified 06/26/23 12:12 Diarrhea Surgical History H/O: Status post repair of ventral hernia Social History Smoking Status: Never smoker ROS Review of Systems ROS Unobtainable: Denies due to encephalopathy Constitutional Constitutional: Reports fatigue, malaise and weakness; Denies anorexia, chills or fever(s) Eyes Eyes: Denies change in vision ENT HEENT: Denies dysphagia or headache(s) Cardiovascular Cardiovascular: Denies chest pain, edema, orthopnea, palpitations, paroxysmal nocturnal dyspnea or syncope Respiratory/Chest Respiratory/Chest: Denies cough, shortness of breath at rest or shortness of breath with exertion Gastrointestinal Gastrointestinal: Reports nausea; Denies abdominal pain, diarrhea or vomiting Genitourinary Genitourinary: Reports dysuria and urinary frequency Musculoskeletal Musculoskeletal: Reports back pain; Denies joint pain or joint stiffness Integumentary Integumentary: Denies dry skin or jaundice Neurologic Neurologic: Denies confusion, dizziness, focal weakness, headache(s) or lack of coordination Psychiatric Psychiatric: Denies anxiety or depression Endocrine Endocrinology: Denies change in body appearance Vital Signs Vital Signs Vital Signs: 06/26/23 12:08 06/26/23 12:10 06/26/23 12:36 Temperature 98.3 F 98.3 F Temperature Source Oral Oral Pulse Rate 103 H 102 H 85 Respiratory Rate 18 18 18 Blood Pressure 116/76 116/76 93/50 L Blood Pressure Mean 89 89 64 Pulse Ox 94 95 94 Oxygen Delivery Method Room Air Room Air Room Air 06/26/23 13:10 Temperature 98.4 F Temperature Source Oral Pulse Rate 78 Respiratory Rate 18 Blood Pressure 98/53 L Blood Pressure Mean 68 Pulse Ox 96 Oxygen Delivery Method Room Air Weight Weight: 148 lb 5.938 oz Body Mass Index (BMI) 28.0 Physical Exam Const alert, oriented x3, no apparent distress and well nourished General Appearance: cooperative and well developed HEENT normocephalic, head/scalp atraumatic, moist oral mucous membranes and oropharynx normal Eyes PERRL and EOMs intact bilaterally Neck no lymphadenopathy and supple Lymph Lymphatic: no lymphadenopathy noted and no lymphedema noted Resp normal respiratory effort, normal air movement and clear to auscultation bilaterally Cardio regular rate, regular rhythm, S1 normal heart sound, S2 normal heart sound and no murmurs GI normal to inspection, nondistended, normoactive bowel sounds, soft to palpation, non-tender and non-distended Extremity normal capillary refill, no clubbing, cyanosis or edema and no calf tenderness Extremity Narrative: no CVA tenderness bilaterally General Extremity: no tenderness to palpation of joints or extremities Skin General Skin Exam: no breakdown and turgor normal Neuro CN's II-XII intact bilaterally, no focal motor deficits, no sensory deficits noted and deep tendon reflexes 2+ bilaterally Motor Exam: strength 5/5 throughout and general weakness Psych thought process normal and cooperative Appearance: appropriate Results Lab / Micro Data 06/26/23 12:30 06/26/23 12:30 Labs: Laboratory Results - last 24 hr 06/26/23 12:30: WBC 17.9 H, RBC 4.50, Hgb 13.3, Hct 39.9, MCV 88.7, MCH 29.6, MCHC 33.3, RDW Std Deviation 42.2, RDW Coeff of Julián 13.1, Plt Count , MPV 10.8, Immature Gran % (Auto) 0.800, Neut % (Auto) 91.5 H, Lymph % (Auto) 1.9 L, [place] % (Auto) 4.7, Eos % (Auto) 0.5, Baso % (Auto) 0.6, Absolute Neuts (auto) 16.4 H, A bsolute Lymphs (auto) 0.34 L, Nucleated RBC % 0, Platelet Estimate ADEQUATE, Sodium 139, Potassium 4.4, Chloride 109 H, Carbon Dioxide 24.0, Anion Gap 6, BUN 30 H, Creatinine 1.58 H, Estim Creat Clear Calc 22.85, Est GFR (MDRD) Af Amer 40 L, Est GFR (MDRD) Non-Af 33 L, BUN/Creatinine Ratio 19.0, Glucose 238 H, Lactic Acid 2.3 H*, Calcium 9.9 06/26/23 13:08: Urine Color Yellow, Urine Clarity Sl. Cloudy, Urine pH 5.0, Ur Specific [place] 1.020, Urine Protein 30 H, Urine Glucose (UA) Normal, Urine Ketones Negative, Urine Occult Blood 25 H, Urine Nitrite Positive H, Urine Bilirubin Negative, Urine Urobilinogen Normal, Ur Leukocyte Esterase 500 H, Urine RBC 0-5 SEEN, Urine WBC 25-50 SEEN, Ur Squamous Epith Cells 0-5 SEEN, Urine Bacteria 2+, Urine Mucus 0 SEEN Imaging Radiology Impression Abdomen/Pelvis CT 06/26/23 12:24 IMPRESSION: 1. Midline lower small bowel hernia without obstruction, strangulation or ischemia. 2. No suspicious acute abnormality in the abdomen and pelvis. Electronically Signed: Shailesh Dominique MD at 13:36 EDT , Assessment & Plan Assessment/Plan (1) Sepsis: (2) Acidosis, lactic: (3) Transient hypotension: (4) Acute UTI: PLAN: Plan #Complicated UTI * admit to PCU due to hypotension * Complained of right flank pain also but CT of the abdomen and pelvis did not show any of pyelonephritis. * Urinalysis showed evidence of UTI. She is not febrile. WBC is elevated at 17.9 * Started on IV ceftriaxone. Get urine cultures and blood cultures. * Hydrated with IV fluid normal saline at 150 cc/h x 2 bags. * P.o. Tylenol and p.o. oxycodone as well as IV morphine as needed for pain * #Lactic acidosis: Likely due to hypotension from UTI. Should improve and resolve with administration of IV fluids. #Type 2 diabetes mellitus: Hold glimepiride. Insulin sliding scale. Accu-Cheks ACHS. #Hypothyroidism: On Synthroid #GERD: On PPI #HELENA: Creatinine is 1.58 with a baseline of around 1.1. Likely due to hypotension from UTI. Hydrate with IV fluids and trend. DVT prophylaxis: Lovenox CODE STATUS: DNRCCA no intubation * Patient counseled extensively about different types of CODE STATUS including full code, DNR CCA and DNR CCA. Patient elects to be DNRCCA no intubation. Total [id number] time 16 minutes. Charges/Coding Visit Charges Inpatient E&M: 52663 Init Hosp L3 Procedures Hospitalists Procedures: 30907 Advncd Care Plan 30 Min
[2023-06-26] MEDS: Ceftriaxone 1 GM/50 ML BAG IV (13:57)
[2023-06-26] MEDS: 0.9% Normal Saline (1000mL) 1,000 ML 999 ML IV (13:59)
[2023-06-26 16:36] LABS: Reflex Lactate? Y
[2023-06-26 16:47] LABS: Bedside Glucose 82 mg/dL (74-106)
[2023-06-26] MEDS: Hydroxychloroquine 200 MG Tablet PO (17:12)
[2023-06-26 17:53] LABS: Lactic Acid 1.6 mmol/L (0.4-1.9)
[2023-06-26] MEDS: Budesonide Respules 0.5 MG/2 ML AMPUL.NEB. INHALATION (19:56)
[2023-06-26] MEDS: Menthol/Lanolin/Calamine/Znox 113 GM Tube 1 APPLIC TOPICAL (22:25)
[2023-06-27] VITALS (23 sets, daily range): BP systolic 85–122; BP diastolic 40–101; PULSE 64–78; RESP 14–24; TEMP 36.4–36.9; O2SAT 94–100
--- NOTE | 2023-06-27 01:01 | PCM.HOSP.N ---
Hospitalist Note BP dropped again to 90/40. Will administer another liter bolus. If BP refractory, may need to consider ICU transfer and pressor support.
[2023-06-27 01:06] LABS: Bedside Glucose 142 mg/dL (74-106)
[2023-06-27] MEDS: 0.9% Normal Saline (1000mL) 1,000 ML 999 ML IV (01:08)
[2023-06-27] MEDS: Levothyroxine 75 MCG Tablet PO (06:38)
[2023-06-27] MEDS: Menthol/Lanolin/Calamine/Znox 113 GM Tube 1 APPLIC TOPICAL ×2 (06:40→21:05)
[2023-06-27] MEDS: Budesonide Respules 0.5 MG/2 ML AMPUL.NEB. INHALATION ×2 (06:50→20:30)
[2023-06-27 07:18] LABS: Absolute Lymphocyte Count 1.07 X10^3/uL (0.83-4.51); Absolute Neutrophil Count 7.4 X10^3/uL (2.0-7.7); Basophil# 0.03 X10^3/uL; Basophil% 0.3 % (0-1); Eosinophil# 0.54 X10^3/uL; Eosinophils% 5.6 % (0-5); Hematocrit 31.5 % (37-47); Lymphocyte # 1.07 X10^3/ul (0.83-4.51); Lymphocyte % 11.1 % (19-41); Mean Corp Hgb Conc 31.7 g/dL (32-36); Mean Corpuscular Hgb 29.2 pg (27.0-32.0); Mean Corpuscular Volume 91.8 fL (81-99); Mean Platelet Vol. 10.1 fl (6.2-12.0); Monocyte# 0.59 X10^3/uL; Monocyte% 6.1 % (0-10); NRBC Flagged by Analyzer 0 % (0-5); Neutrophil # 7.37 X10^3/uL (2.7-7.7); Neutrophil % 76.6 % (47-70); Platelet Count 138 K/mm3 (150-450); RBC Distribution Width CV 13.3 % (11.6-14.6); RBC Distribution Width SD 44.8 fl (35.1-43.9); Red Blood Count 3.43 M/mm3 (4.2-5.4); White Blood Count 9.6 K/mm3 (4.4-11.0)
[2023-06-27 07:42] LABS: Anion Gap 2 (5-15); BUN 28 mg/dL (7-18); BUN/Creat Ratio 22.4 RATIO (10-20); Calcium,Total 8.6 mg/dL (8.5-10.1); Chloride 116 mmol/L (98-107); Creatinine, Serum 1.25 mg/dL (0.55-1.02); EST Glomerular Filtration Rate 43 mL/min (>60); Est Glom Filt Rate - Afr Amer 52 mL/min (>60); Estimated Creatinine Clearance 28.28 ml/min; Glucose 94 mg/dL (74-106); Potassium 3.7 mmol/L (3.5-5.1); Sodium Level 141 mmol/L (136-145)
[2023-06-27] MEDS: 0.9% Normal Saline (1000mL) 1,000 ML 150 ML IV (07:59)
[2023-06-27] MEDS: Enoxaparin 30 MG/0.3 ML Syringe SC (08:18)
[2023-06-27] MEDS: Cholecalciferol (VIT D3) 25 MCG TABLET (1,000 UNITS) 50 MCG PO (08:18)
[2023-06-27] MEDS: Multivitamins,Therapeutic Tablet 1 TABLET PO (08:18)
[2023-06-27] MEDS: Pantoprazole Sodium 40 MG Tablet PO (08:18)
[2023-06-27] MEDS: Montelukast 10 MG Tablet PO (08:18)
[2023-06-27] MEDS: Acetaminophen 500 MG Tablet PO (08:19)
[2023-06-27 09:10] LABS: Bedside Glucose 85 mg/dL (74-106)
[2023-06-27] MEDS: Ceftriaxone 1 GM/50 ML BAG IV (09:20)
[2023-06-27] MEDS: Hydroxychloroquine 200 MG Tablet PO ×2 (09:20→17:35)
--- NOTE | 2023-06-27 10:30 | PN_ITS ---
Subjective Subjective Patient seen and examined. She complained of some mild pain over her right thigh today. She denied any dizziness or lightheadedness, shortness of breath, palpitations or dizziness or any other symptoms. Her blood pressure was low overnight, and she was given a bolus of IV normal saline. She had improved a bit this morning but BP checked later this morning was 85/41. She is asymptomatic, and is alert and oriented and communicative. Will transfer to ICU for initiation of pressors due to persistent hypotension. Objective Data Objective Data Vital Signs: Vital Signs Temp Pulse Resp BP Pulse Ox O2 Del Method 97.9 F 74 16 95/45 L 97 Room Air 06/27/23 05:31 06/27/23 06:50 06/27/23 06:50 06/27/23 05:31 06/27/23 05:31 06/27/23 08:05 Oxygen Delivery Method Room Air Weight: 141 lb 15.643 oz Body Mass Index (BMI) 26.8 Intake & Output: Intake and Output for Last 24 Hours 06/25/23 06/26/23 06/27/23 23:59 23:59 23:59 Intake Total 2600 / 2600 2000.0 / 1999.0 Balance 2600 / 2600 2000.0 / 2000.0 Lab / Micro Data 06/27/23 06:55 06/27/23 06:55 Labs: Laboratory Results - last 24 hr 06/26/23 12:30: WBC 17.9 H, RBC 4.50, Hgb 13.3, Hct 39.9, MCV 88.7, MCH 29.6, MCHC 33.3, RDW Std Deviation 42.2, RDW Coeff of Julián 13.1, Plt Count , MPV 10.8, Immature Gran % (Auto) 0.800, Neut % (Auto) 91.5 H, Lymph % (Auto) 1.9 L, [place] % (Auto) 4.7, Eos % (Auto) 0.5, Baso % (Auto) 0.6, Absolute Neuts (auto) 16.4 H, A bsolute Lymphs (auto) 0.34 L, Nucleated RBC % 0, Platelet Estimate ADEQUATE, Sodium 139, Potassium 4.4, Chloride 109 H, Carbon Dioxide 24.0, Anion Gap 6, BUN 30 H, Creatinine 1.58 H, Estim Creat Clear Calc 22.85, Est GFR (MDRD) Af Amer 40 L, Est GFR (MDRD) Non-Af 33 L, BUN/Creatinine Ratio 19.0, Glucose 238 H, Lactic Acid 2.3 H*, Calcium 9.9 06/26/23 13:08: Urine Color Yellow, Urine Clarity Sl. Cloudy, Urine pH 5.0, Ur Specific [place] 1.020, Urine Protein 30 H, Urine Glucose (UA) Normal, Urine Ketones Negative, Urine Occult Blood 25 H, Urine Nitrite Positive H, Urine Bilirubin Negative, Urine Urobilinogen Normal, Ur Leukocyte Esterase 500 H, Urine RBC 0-5 SEEN, Urine WBC 25-50 SEEN, Ur Squamous Epith Cells 0-5 SEEN, Urine Bacteria 2+, Urine Mucus 0 SEEN 06/26/23 16:08: POC Glucose 82 06/26/23 17:00: Lactic Acid 1.6 06/26/23 22:23: POC Glucose 142 H 06/27/23 06:36: POC Glucose 85 06/27/23 06:55: WBC 9.6, RBC 3.43 L, Hgb 10.0 L, Hct 31.5 L, MCV 91.8, MCH 29.2, MCHC 31.7 L, RDW Std Deviation 44.8 H, RDW Coeff of Julián 13.3, Plt Count 138 L, MPV 10.1, Immature Gran % (Auto) 0.300, Neut % (Auto) 76.6 H, Lymph % (Auto) 11.1 L, [place] % (Auto) 6.1, Eos % (Auto) 5.6 H, Baso % (Auto) 0.3, Absolute Neuts (auto) 7.4, Absolute Lymphs (auto) 1.07, Nucleated RBC % 0, Sodium 141, Potassium 3.7, Chloride 116 H, Carbon Dioxide 23.0, Anion Gap 2 L, BUN 28 H, C reatinine 1.25 H, Estim Creat Clear Calc 28.28, Est GFR (MDRD) Af Amer 52 L, Est GFR (MDRD) Non-Af 43 L, BUN/Creatinine Ratio 22.4 H, Glucose 94, Calcium 8.6 Radiography Diagnostic Testing: Radiology Impression Abdomen/Pelvis CT 06/26/23 12:24 IMPRESSION: 1. Midline lower small bowel hernia without obstruction, strangulation or ischemia. 2. No suspicious acute abnormality in the abdomen and pelvis. Electronically Signed: Shailesh Dominique MD at 13:36 EDT , Physical Exam Const alert, oriented x3, no apparent distress and well nourished General Appearance: cooperative and well developed HEENT normocephalic, head/scalp atraumatic, moist oral mucous membranes and oropharynx normal Eyes PERRL and EOMs intact bilaterally Neck no lymphadenopathy and supple Lymph Lymphatic: no lymphadenopathy noted and no lymphedema noted Resp normal respiratory effort, normal air movement and clear to auscultation bilaterally Cardio regular rate, regular rhythm, S1 normal heart sound, S2 normal heart sound and no murmurs GI normal to inspection, nondistended, normoactive bowel sounds, soft to palpation, non-tender and non-distended Extremity normal capillary refill, no clubbing, cyanosis or edema and no calf tenderness Extremity Narrative: no CVA tenderness bilaterally General Extremity: no tenderness to palpation of joints or extremities Skin General Skin Exam: no breakdown and turgor normal Neuro CN's II-XII intact bilaterally, no focal motor deficits, no sensory deficits noted and deep tendon reflexes 2+ bilaterally Motor Exam: strength 5/5 throughout and general weakness Psych thought process normal and cooperative Appearance: appropriate Assessment & Plan Assessment/Plan (1) Sepsis: (2) Acidosis, lactic: (3) Transient hypotension: (4) Acute UTI: PLAN: Plan #septic shock due to UTI UTI * was initially admitted to PCU due to hypotension; she was not septic on admission per SOFA criteria, though SIRS criteria showed she met sepsis criteria. * BP has remained low, and not responding to fluids, so being transferred to ICU for initiation of pressors as needed for septic shock * wbc has trended downwards. Lactic acidosis has resolved * on IV ceftriaxone. will broaden antibiotics to IV zosyn * urine and blood cultures pending * consult critical care. * resuscitate per sepsis protocol * IV levophed ordered * #Lactic acidosis: resolved with IVF administration. #Type 2 diabetes mellitus: Hold glimepiride. Insulin sliding scale. Accu-Cheks ACHS. #Hypothyroidism: On Synthroid #GERD: On PPI #HELENA: * Creatinine is down to 1.25, from 1.58 yesterday. * Baseline Cr is around 1.1. * continue gentle hydration with iVF DVT prophylaxis: Lovenox CODE STATUS: DNRCCA no intubation * * DIsposition: transfer to ICU o/a of hypotension refractory to IVF. Charges/Coding Visit Charges Inpatient E&M: 22930 Subs Hosp L3
[2023-06-27] MEDS: Ondansetron 4 MG/2 ML Vial IV (11:14)
[2023-06-27 11:31] LABS: Bedside Glucose 165 mg/dL (74-106)
[2023-06-27 12:48] LABS: Lactic Acid 1.1 mmol/L (0.4-1.9)
[2023-06-27] MEDS: 0.9% Normal Saline (1000mL) 1,000 ML 125 ML IV ×2 (13:11→21:03)
--- NOTE | 2023-06-27 14:27 | NURSING ---
1210 report given to paulina rn and pt transferred to icu 3 via bed with all belongings.
--- NOTE | 2023-06-27 14:44 | CON.PCM.CC_ITS ---
HPI Consult Data Date of Consult: 06/27/23 HPI Narrative Reason for Consultation: urosepsis HPI Narrative: TARA GUPTA, is a 87 F who presents urosepsis complicated by inability to tolerate oral antibiotics and low-grade sepsis syndrome. She was diagnosed with UTI 2 nights ago and discharged but apparently was unable to keep down the pills so returned to ED and found to be hypotensive. She was identified as possible sepsis and received sepsis bundle including indicated fluid bolus. Currently she has no other complaints. [facility] Medical History Asthma Cholecystectomy planned Generalized weakness GERD (gastroesophageal reflux disease) Hypothyroidism Injury of right hip Sarcoidosis Type 2 diabetes mellitus Urinary tract infection Home Medications ?Medication ?Instructions ?Recorded ?Last Taken ?Type albuterol sulfate 2.5 mg/3 mL 2.5 mg inhalation Q6H PRN PRN 12/21/15 11/02/17 History (0.083 %) solution for nebulization Shortness Of Breath ergocalciferol (vitamin D2) 1,250 50 mcg PO QMONTH 12/21/15 06/26/23 History mcg (50,000 unit) capsule (Vitamin D2) glimepiride 1 mg tablet 1 mg PO DAILY 12/21/15 06/26/23 History hydroxychloroquine 200 mg tablet 200 mg PO BIDCM Sarcoidosis 12/21/15 06/26/23 History pantoprazole 40 mg tablet,delayed 40 mg PO DAILY GERD 12/21/15 06/26/23 History release fluticasone propionate 44 2 puff inhalation BID 11/02/17 11/02/17 History mcg/actuation HFA aerosol inhaler (Flovent HFA) acetaminophen 500 mg tablet 500 mg PO Q6H PRN PRN PAIN 1-10 #0 08/09/21 Unknown Rx tabs polyethylene glycol 3350 17 17 g PO DAILY PRN constipation 08/17/22 Unknown Rx gram/dose oral powder (Miralax) #119 grams levothyroxine 75 mcg tablet 75 mcg PO DAILY 06/26/23 06/26/23 History montelukast 10 mg tablet 10 mg PO DAILY 06/26/23 06/25/23 History multivitamin with folic acid 400 1 tab PO DAILY 06/26/23 06/26/23 History mcg tablet (Daily-Helen (with folic acid)) nitrofurantoin 100 mg PO BID 06/26/23 06/26/23 History monohydrate/macrocrystals 100 mg capsule Allergy/AdvReac Type Severity Reaction Status Date / Time adhesive AdvReac Rash Verified 06/26/23 12:12 alendronate sodium AdvReac Nausea/Vom/ Verified 06/26/23 12:12 Diarrhea gabapentin (From Neurontin) AdvReac Other Verified 08/17/22 15:34 hydrocodone (From Vicodin) AdvReac Other Verified 06/26/23 12:12 naproxen (From Aleve) AdvReac Nausea/Vom/ Verified 06/26/23 12:12 Diarrhea Surgical History H/O: Status post repair of ventral hernia Social History Smoking Status: Never smoker Objective Data Objective Data Vital Signs: Vital Signs Last response 3 Temperature 36.6 C 06/27/23 13:00 Temperature Source Temporal 06/27/23 13:00 Pulse Rate 68 06/27/23 14:00 Pulse Strength Normal (2+) 06/27/23 08:05 Respiratory Rate 21 H 06/27/23 14:00 Respiratory Effort Normal, Non-Labored 06/27/23 08:05 Respiratory Depth Normal 06/27/23 08:05 Respiratory Pattern Normal 06/27/23 08:05 Blood Pressure 112/59 L 06/27/23 14:00 Blood Pressure Mean 76 06/27/23 14:00 Blood Pressure Source Monitor 06/27/23 14:00 Blood Pressure Position Semi-Fowlers 06/27/23 14:00 Blood Pressure Location Left Arm 06/27/23 14:00 Pulse Ox 95 06/27/23 14:00 Oxygen Delivery Method Room Air 06/27/23 14:00 I&O: I&O Last 24 Hours 3 06/26/23 06/27/23 06/27/23 23:59 11:59 23:59 Intake Total 2600 / 2600 2050.0 / 3252.5 1202.5 / 3252.5 Balance 2600 / 2600 2050.0 / 3252.5 1202.5 / 3252.5 I&O: Total Stay 3 05/18/24 12:05 thru 06/27/23 13:12 Intake Total 5852.5 Balance 5852.5 Current Meds Ordered / Administered: Current meds ordered / Administered 3 Generic Name Dose Route Start Last Admin Trade Name [place] PRN Reason Stop Dose Admin Acetaminophen 500 mg 06/26/23 15:52 06/27/23 08:19 Acetaminophen 500 Mg Tablet PO 500 mg Q6H PRN PRN Administration PAIN 1-10 Albuterol Sulfate 2.5 mg 06/26/23 15:52 Albuterol 2.5 Mg/3 Ml Vial.Neb. INHALATION Q6H PRN PRN Shortness Of Breath Budesonide 0.5 mg 06/26/23 16:15 06/27/23 06:50 Budesonide Respules 0.5 Mg/2 Ml Ampul.Neb. INHALATION 0.5 mg Q12H.RT LUCIA Administration Calamine/Phenol 1 applic 06/26/23 22:00 06/27/23 06:40 Menthol/Lanolin/Calamine/Znox 113 Gm Tube TOPICAL 1 applic TID LUCIA Administration Protocol Cholecalciferol 50 mcg 06/27/23 10:00 06/27/23 08:18 Cholecalciferol (Vit D3) 25 Mcg Tablet (1,000 Units) PO 50 mcg DAILY LUCIA Administration Dextrose 0 gm 06/26/23 15:52 Dextrose 50%-Water 25 Gm/50 Ml Disp.Syrin IV X1 PRN HYPOGLYCEMIA Protocol Diphenoxylate HCl/Atropine 1 tablet 06/26/23 15:52 Diphenoxylate/Atrop 1 Tablet PO BID PRN PRN diarrhea Enoxaparin Sodium 30 mg 06/27/23 10:00 06/27/23 08:18 Enoxaparin 30 Mg/0.3 Ml Syringe SC 30 mg DAILY LUCIA Administration Glucagon 1 mg 06/26/23 15:52 Glucagon 1 Mg/Ml Syringe IM X1 PRN HYPOGLYCEMIA Hydroxychloroquine Sulfate 200 mg 06/26/23 17:00 06/27/23 09:20 Hydroxychloroquine 200 Mg Tablet PO 200 mg BIDCM LUCIA Administration Sodium Chloride 1,000 mls @ 125 mls/hr 06/27/23 10:50 06/27/23 13:11 IV 06/28/23 10:49 125 mls/hr .Q8H LUCIA Administration Norepinephrine Bitartrate 8 mg 250 mls @ 9.375 mls/hr 06/27/23 12:46 06/27/23 13:12 / Sodium Chloride CONT INF Not Given .[id number] [facility] Protocol 5 MCG/MIN Piperacillin Sod/Tazobactam 50 mls @ 12.5 mls/hr 06/27/23 14:00 Sod 3.375 gm/ Sodium Chloride IV Q8 [facility] Insulin Human Lispro 0 unit 06/26/23 16:00 06/27/23 11:22 Insulin Lispro 100 Unit/Ml Insuln.Pen SC Not Given ACHS [facility] Protocol Levothyroxine Sodium 75 mcg 06/27/23 06:00 06/27/23 06:38 Levothyroxine 75 Mcg Tablet PO 75 mcg DAILY@0600 [facility] Administration Montelukast Sodium 10 mg 06/27/23 10:00 06/27/23 08:18 Montelukast 10 Mg Tablet PO 10 mg DAILY [facility] Administration Multivitamins 1 tablet 06/27/23 08:00 06/27/23 08:18 Multivitamins,Therapeutic Tablet PO 1 tablet DAILYCM [facility] Administration Ondansetron HCl 4 mg 06/26/23 15:52 06/27/23 11:14 Ondansetron 4 Mg/2 Ml Vial IV 4 mg Q8H PRN PRN Administration NAUSEA/VOMITING Pantoprazole Sodium 40 mg 06/27/23 10:00 06/27/23 08:18 Pantoprazole Sodium 40 Mg Tablet PO 40 mg DAILY [facility] Administration Polyethylene Glycol 17 gm 06/26/23 16:02 Polyethylene Glycol 3350 17 Gm Packet PO DAILY PRN constipation Lab / Micro Data 06/27/23 06:55 06/27/23 06:55 Labs: Laboratory Results - last 24 hr 06/26/23 16:08: POC Glucose 82 06/26/23 17:00: Lactic Acid 1.6 06/26/23 22:23: POC Glucose 142 H 06/27/23 06:36: POC Glucose 85 06/27/23 06:55: WBC 9.6, RBC 3.43 L, Hgb 10.0 L, Hct 31.5 L, MCV 91.8, MCH 29.2, MCHC 31.7 L, RDW Std Deviation 44.8 H, RDW Coeff of Julián 13.3, Plt Count 138 L, MPV 10.1, Immature Gran % (Auto) 0.300, Neut % (Auto) 76.6 H, Lymph % (Auto) 11.1 L, [place] % (Auto) 6.1, Eos % (Auto) 5.6 H, Baso % (Auto) 0.3, Absolute Neuts (auto) 7.4, Absolute Lymphs (auto) 1.07, Nucleated RBC % 0, Sodium 141, Potassium 3.7, Chloride 116 H, Carbon Dioxide 23.0, Anion Gap 2 L, BUN 28 H, C reatinine 1.25 H, Estim Creat Clear Calc 28.28, Est GFR (MDRD) Af Amer 52 L, Est GFR (MDRD) Non-Af 43 L, BUN/Creatinine Ratio 22.4 H, Glucose 94, Calcium 8.6 06/27/23 11:13: POC Glucose 165 H 06/27/23 12:10: Lactic Acid 1.1 Micro: Microbiology 06/26/23 13:08 Urine, Clean Catch Urine Culture - Final Mixed Gram Pos & Gram Neg Org Assessment and Plan . Assessment and plan: #sepsis syndrome - not clear if hypotension primarily related to volume depletion - currently BP responded to 30 mL/kg fluid bolus - vasopressors/ PICC ordered if needed - lactic acid WNL - would continue standard sepsis management as ordered #UTI - no history of stone disease or antibiotic therapy other than those prescribed two days ago, so do not suspect resistant infection - agree with empiric Abx - follow up cultures #advanced age Prophylaxis - standard px including PPI, LMWH Critical Care Time: 60 minutes The entirety of this encounter was done via Telemedicine
[2023-06-27] MEDS: Piperacil/Tazobactam 3.375 GM in 0.9% Normal Saline (50mL MB+) 50 ML IV ×2 (14:59→21:03)
[2023-06-27 17:58] LABS: Bedside Glucose 118 mg/dL (74-106)
[2023-06-27] MEDS: Albuterol 2.5 MG/3 ML VIAL.NEB. INHALATION (20:30)
[2023-06-27 21:33] LABS: Bedside Glucose 122 mg/dL (74-106)
[2023-06-28] VITALS (13 sets, daily range): BP systolic 99–140; BP diastolic 47–59; PULSE 60–72; RESP 15–19; TEMP 36.1–36.6; O2SAT 93–99
[2023-06-28 04:41] LABS: Absolute Lymphocyte Count 1.28 X10^3/uL (0.83-4.51); Absolute Neutrophil Count 3.9 X10^3/uL (2.0-7.7); Basophil# 0.02 X10^3/uL; Basophil% 0.3 % (0-1); Eosinophil# 0.47 X10^3/uL; Eosinophils% 7.8 % (0-5); Hematocrit 30.4 % (37-47); Hemoglobin 10.1 g/dL (12.0-15.0); Lymphocyte # 1.28 X10^3/ul (0.83-4.51); Lymphocyte % 21.2 % (19-41); Mean Corp Hgb Conc 33.2 g/dL (32-36); Mean Corpuscular Hgb 30.1 pg (27.0-32.0); Mean Corpuscular Volume 90.7 fL (81-99); Mean Platelet Vol. 10.3 fl (6.2-12.0); Monocyte# 0.34 X10^3/uL; Monocyte% 5.6 % (0-10); NRBC Flagged by Analyzer 0 % (0-5); Neutrophil # 3.92 X10^3/uL (2.7-7.7); Neutrophil % 64.8 % (47-70); Platelet Count 128 K/mm3 (150-450); RBC Distribution Width CV 13.4 % (11.6-14.6); Red Blood Count 3.35 M/mm3 (4.2-5.4); White Blood Count 6.1 K/mm3 (4.4-11.0)
[2023-06-28 04:45] LABS: Anion Gap 5 (5-15); BUN 25 mg/dL (7-18); BUN/Creat Ratio 23.1 RATIO (10-20); Calcium,Total 8.4 mg/dL (8.5-10.1); Chloride 118 mmol/L (98-107); Creatinine, Serum 1.08 mg/dL (0.55-1.02); EST Glomerular Filtration Rate 51 mL/min (>60); Est Glom Filt Rate - Afr Amer 62 mL/min (>60); Estimated Creatinine Clearance 32.73 ml/min; Glucose 157 mg/dL (74-106); Potassium 3.8 mmol/L (3.5-5.1); Sodium Level 143 mmol/L (136-145)
[2023-06-28] MEDS: 0.9% Normal Saline (1000mL) 1,000 ML 125 ML IV (05:03)
[2023-06-28] MEDS: Levothyroxine 75 MCG Tablet PO (05:16)
[2023-06-28] MEDS: Piperacil/Tazobactam 3.375 GM in 0.9% Normal Saline (50mL MB+) 50 ML IV ×3 (05:26→22:20)
[2023-06-28] MEDS: Menthol/Lanolin/Calamine/Znox 113 GM Tube 1 APPLIC TOPICAL ×2 (05:27→22:44)
--- NOTE | 2023-06-28 07:26 | PCM.PN.HOSP ---
Reason for Visit Reason for Visit: Diagnoses Sepsis, unspecified organism (06/26/23) Acidosis, unspecified (06/26/23) Hypotension, unspecified (06/26/23) Urinary tract infection, site not specified (06/26/23) Subjective Subjective Patient is an 87-year-old lady admitted with septic shock secondary to acute cystitis. Patient blood pressure did drop resulting in patient being transferred to the ICU Objective Data Objective Data Vital Signs: Vital Signs Temp Pulse Resp BP Pulse Ox O2 Del Method 97.7 F L 62 18 114/59 L 94 Room Air 06/28/23 05:00 06/28/23 07:00 06/28/23 07:00 06/28/23 07:00 06/28/23 07:00 06/28/23 07:00 Oxygen Delivery Method Room Air Weight: 64.4 kg Body Mass Index (BMI) 26.8 Intake & Output: Intake and Output for Last 24 Hours 06/26/23 06/27/23 06/28/23 23:59 23:59 23:59 Intake Total 2600 / 2600 4285.83 / 4285.83 1050 / 1050 Output Total 600 / 600 Balance 2600 / 2600 3685.83 / 3685.83 1050 / 1050 Lab / Micro Data 06/28/23 04:20 06/28/23 04:20 Labs: Laboratory Results - last 24 hr 06/27/23 06:36: POC Glucose 85 06/27/23 06:55: Sodium 141, Potassium 3.7, Chloride 116 H, Carbon Dioxide 23.0, Anion Gap 2 L, BUN 28 H, Creatinine 1.25 H, Estim Creat Clear Calc 28.28, Est GFR (MDRD) Af Amer 52 L, Est GFR (MDRD) Non-Af 43 L, BUN/Creatinine Ratio 22.4 H, Glucose 94, Calcium 8.6 06/27/23 11:13: POC Glucose 165 H 06/27/23 12:10: Lactic Acid 1.1 06/27/23 17:27: POC Glucose 118 H 06/27/23 21:05: POC Glucose 122 H 06/28/23 04:20: WBC 6.1, RBC 3.35 L, Hgb 10.1 L, Hct 30.4 L, MCV 90.7, MCH 30.1, MCHC 33.2, RDW Std Deviation 44.0 H, RDW Coeff of Julián 13.4, Plt Count 128 L, MPV 10.3, Immature Gran % (Auto) 0.300, Neut % (Auto) 64.8, Lymph % (Auto) 21.2, [place] % (Auto) 5.6, Eos % (Auto) 7.8 H, Baso % (Auto) 0.3, Absolute Neuts (auto) 3.9, Absolute Lymphs (auto) 1.28, Nucleated RBC % 0, Sodium 143, Potassium 3.8, Chloride 118 H, Carbon Dioxide 20.0 L, Anion Gap 5, BUN 25 H, Creatinine 1.08 H, Estim Creat Clear Calc 32.73, Est GFR (MDRD) Af Amer 62, Est GFR (MDRD) Non-Af 51 L, BUN/Creatinine Ratio 23.1 H, Glucose 157 H, Calcium 8.4 L Micro: Microbiology 06/26/23 13:08 Urine, Clean Catch Urine Culture - Final Mixed Gram Pos & Gram Neg Org Physical Exam Narrative GENERAL: cooperative HEENT: Atraumatic; normocephalic EYES; Anicteric, Normal Conjunctiva NECK; supple, normal thyroid, RESPIRATORY: Diminished to auscultation CARDIOVASCULAR: Regular S1 S2, GI: soft, normoactive bowel sounds, : No Renal angle tenderness; EXTREMITIES: No edema, no clubbing, MUSCULOSKELETAL: no muscle wasting NEURO: Awake; no lateralizing signs. SKIN: No Rash PSYCH; Flat affect Assessment & Plan Assessment/Plan (1) Sepsis: (2) Acidosis, lactic: (3) Transient hypotension: (4) Acute UTI: PLAN: Plan Patient is an 87-year-old lady admitted with septic shock secondary to acute cystitis. Patient blood pressure did drop resulting in patient being transferred to the ICU 1. Septic shock left secondary to acute complicated UTI ? Patient treated per protocol with IV fluids broad-spectrum antibiotic therapy and serial monitoring with lactic acid. Patient did respond to IV fluid and did not end up requiring Levophed which was ordered as part of her management 2. Diabetes mellitus type II -patient's oral hypoglycemics held. Placed on long acting insulin, Accu-Cheks a.c. and at bedtime and covered with sliding scale insulin 3. Assessment hypothyroidism 4. GERD ? On PPI 5.Sarcoidosis ? on hydroxychloroquine 6. Thrombocytopenia ? May be related to patient sepsis, Patient is on enoxaparin will monitor closely 7. Anemia - Secondary to chronic disorder monitoring H&H and transfuse if patient becomes symptomatic or hemoglobin falls below 7 8. Acute kidney injury ? Secondary to suspected ATN from septic shock patient creatinine on admission was 1.58 currently on IV fluid creatinine down to 1.08 9. DVT prophylaxis ? On enoxaparin Time spent in the patient's overall evaluation,decision-making process, review of diagnostic data, adjustment of management, discussion with other providers, nursing nursing and ancillary staff involved in patient's care documentation, 52 Minutes Charges/Coding Visit Charges Inpatient E&M: 13725 Subs Hosp L3
[2023-06-28] MEDS: Pantoprazole Sodium 40 MG Tablet PO (08:44)
[2023-06-28] MEDS: Cholecalciferol (VIT D3) 25 MCG TABLET (1,000 UNITS) 50 MCG PO (08:44)
[2023-06-28] MEDS: Hydroxychloroquine 200 MG Tablet PO ×2 (08:44→16:57)
[2023-06-28] MEDS: Montelukast 10 MG Tablet PO (08:45)
[2023-06-28] MEDS: Multivitamins,Therapeutic Tablet 1 TABLET PO (08:45)
[2023-06-28] MEDS: Enoxaparin 40 MG/0.4 ML Syringe SC (08:48)
[2023-06-28 09:07] LABS: Bedside Glucose 119 mg/dL (74-106)
[2023-06-28] MEDS: Budesonide Respules 0.5 MG/2 ML AMPUL.NEB. INHALATION ×2 (09:20→20:09)
--- NOTE | 2023-06-28 12:13 | CASEMGMT ---
SLADE QUINTERO Assessment Face to Face with patient for initial transition planning/care coordination assessment. SLADE QUINTERO introduced self and role at [facility], pt voices understanding. Pt is A&Ox4 and is resting comfortably in the chair and is calm. Care providers, pharmacy, and demographics verified. Admitting dx: Hypotension, UTI LACE Strata: 2 PCP: Chace Specialists: Vinayak (Ortho), Dr. Hugh Barcenas (Dermatology) Preferred Pharmacy: [facility] Insurance: [employer] [facility] Prescription Benefit: Yes LNOK: Marina Vega (Friend), Maurizio Edwards (Son) Living Arrangements: Pt lives alone in a 2 story apartment with 1 step to enter. Pt states there are 2 Handrails for the flight of steps inside the apartment ADLs/IADLs: Ind with ADLs. Requires assistance with IADLs. Pt states that she has private duty aides help her Wednesday through . Pt states that on Mondays and Wednesdays, the helpers are there for 4 hours. On Tuesdays and , the helpers are there for 2 hours. Pt states that they help with things like Bathing, grocery shopping, and light cleaning. Transportation: Pt states that she uses [employer] [facility] and has been pleased with their transportation DME: Working [employer] and supplies to check BS levels. Cane, walker, rollator, shower GB and chair, raised toilet seat with GB, Lift chair, nebulizer, and inhaler. HHC/SNF: History of skilled HHC but unsure of the agency. States history at [facility] Pt?s goal: Home with HHC Plan: Pt was cleared by OT. PT is recommending further therapy and state the pt 6-Click is 18. Pt states that she is interested in getting home health set up for SN and PT. Pt declines a list of local in network HH agencies and states that she would like to go through [facility] if we are in network with her insurance. TC zach Arrington from [facility] and referral made for SN and PT. Will follow. Loulou Banuelos RN, CM
[2023-06-28 12:23] LABS: Bedside Glucose 148 mg/dL (74-106)
[2023-06-28] MEDS: 0.9% Saline Lock 10 ML Syringe IV (14:16)
[2023-06-28] MEDS: Ondansetron 4 MG/2 ML Vial IV (14:19)
--- NOTE | 2023-06-28 14:55 | CHAPLAIN ---
Type of Pastoral Visit _x__ Initial Visit ___ Follow-up Visit ___ On-call Visit ___ General Patient Visit ___ Spiritual Assessment ___ Family Conference ___ Bereavement ___ Rapid Response ___ Code Blue ___ Other (describe below) Pastoral Care Referral From _x__ Patient ___ Family ___ Nurse ___ Physician ___ Perfect Binder Feeder Offbearer ___ House Painter Helper ___ Other (describe below) Sacrament/Intervention _x__ Active listening ___ Anointing ___ Buddhism ___ Bereavement ___ Communion _x__ Kavitha exploration ___ _x__ Life review _x__ Prayer ___ Reconciliation ___ Sacrament of Sick _x__ Supportive presence ___ Wedding ___ Other (describe below) Pastoral Comments patient was sitting up in the chair and was finishing her lunch in ICU; pt states that she is feeling some better and begins to talk about her Bible Study group and fellowship; pt gives some life review but focuses mostly on her love for Christianity and Country music; pt plays a song on her phone that inspires her and her kavitha; pt talks more about her kavitha and love of music; pt asks for prayer but has no other needs or concerns at this time
[2023-06-28 17:00] LABS: Bedside Glucose 112 mg/dL (74-106)
[2023-06-28 23:05] LABS: Bedside Glucose 143 mg/dL (74-106)
[2023-06-29 04:15] VITALS: BP 121/57; PULSE 91; RESP 16; TEMP 36.1; O2SAT 96
[2023-06-29] MEDS: Piperacil/Tazobactam 3.375 GM in 0.9% Normal Saline (50mL MB+) 50 ML IV ×2 (06:08→14:41)
[2023-06-29] MEDS: Levothyroxine 75 MCG Tablet PO (06:09)
[2023-06-29] MEDS: Menthol/Lanolin/Calamine/Znox 113 GM Tube 1 APPLIC TOPICAL ×3 (06:09→21:43)
[2023-06-29 06:52] VITALS: PULSE 64; RESP 16
[2023-06-29] MEDS: Budesonide Respules 0.5 MG/2 ML AMPUL.NEB. INHALATION ×2 (06:52→19:23)
[2023-06-29 07:03] LABS: Bedside Glucose 117 mg/dL (74-106)
[2023-06-29 07:43] LABS: Absolute Lymphocyte Count 1.64 X10^3/uL (0.83-4.51); Absolute Neutrophil Count 3.4 X10^3/uL (2.0-7.7); Basophil# 0.03 X10^3/uL; Basophil% 0.5 % (0-1); Eosinophils% 8.4 % (0-5); Hematocrit 33.1 % (37-47); Hemoglobin 10.8 g/dL (12.0-15.0); Lymphocyte # 1.64 X10^3/ul (0.83-4.51); Lymphocyte % 27.5 % (19-41); Mean Corp Hgb Conc 32.6 g/dL (32-36); Mean Corpuscular Hgb 29.3 pg (27.0-32.0); Mean Corpuscular Volume 89.7 fL (81-99); Mean Platelet Vol. 10.5 fl (6.2-12.0); Monocyte# 0.38 X10^3/uL; Monocyte% 6.4 % (0-10); NRBC Flagged by Analyzer 0 % (0-5); Neutrophil # 3.38 X10^3/uL (2.7-7.7); Neutrophil % 56.7 % (47-70); Platelet Count 166 K/mm3 (150-450); RBC Distribution Width CV 13.2 % (11.6-14.6); RBC Distribution Width SD 43.8 fl (35.1-43.9); Red Blood Count 3.69 M/mm3 (4.2-5.4)
[2023-06-29 07:48] LABS: Anion Gap 6 (5-15); BUN 20 mg/dL (7-18); BUN/Creat Ratio 18.9 RATIO (10-20); Chloride 112 mmol/L (98-107); Creatinine, Serum 1.06 mg/dL (0.55-1.02); EST Glomerular Filtration Rate 52 mL/min (>60); Est Glom Filt Rate - Afr Amer 63 mL/min (>60); Estimated Creatinine Clearance 33.35 ml/min; Glucose 124 mg/dL (74-106); Magnesium 1.9 mg/dL (1.6-2.6); Sodium Level 140 mmol/L (136-145)
--- NOTE | 2023-06-29 08:08 | PCM.PN.HOSP ---
Reason for Visit Reason for Visit: Diagnoses Sepsis, unspecified organism (06/26/23) Acidosis, unspecified (06/26/23) Hypotension, unspecified (06/26/23) Urinary tract infection, site not specified (06/26/23) Subjective Subjective Patient seen blood cultures pending, clinical condition however continues to Objective Data Objective Data Vital Signs: Vital Signs Temp Pulse Resp BP Pulse Ox O2 Del Method 96.9 F L 91 16 121/57 H 96 Room Air 06/29/23 04:15 06/29/23 04:15 06/29/23 04:15 06/29/23 04:15 06/29/23 04:15 06/29/23 04:15 Oxygen Delivery Method Room Air Weight: 64.4 kg Body Mass Index (BMI) 26.8 Intake & Output: Intake and Output for Last 24 Hours 06/27/23 06/28/23 06/29/23 23:59 23:59 23:59 Intake Total 4285.83 / 4285.83 2150 / 2450 550 / 550 Output Total 600 / 600 450 / 450 650 / 650 Balance 3685.83 / 3685.83 1700 / 2000 -100 / -100 Lab / Micro Data 06/29/23 06:30 06/29/23 06:30 Labs: Laboratory Results - last 24 hr 06/28/23 08:33: POC Glucose 119 H 06/28/23 12:04: POC Glucose 148 H 06/28/23 16:42: POC Glucose 112 H 06/28/23 22:29: POC Glucose 143 H 06/29/23 06:19: POC Glucose 117 H 06/29/23 06:30: WBC 6.0, RBC 3.69 L, Hgb 10.8 L, Hct 33.1 L, MCV 89.7, MCH 29.3, MCHC 32.6, RDW Std Deviation 43.8, RDW Coeff of Julián 13.2, Plt Count 166, MPV 10.5, Immature Gran % (Auto) 0.500, Neut % (Auto) 56.7, Lymph % (Auto) 27.5, [place] % (Auto) 6.4, Eos % (Auto) 8.4 H, Baso % (Auto) 0.5, Absolute Neuts (auto) 3.4, Absolute Lymphs (auto) 1.64, Nucleated RBC % 0, Sodium 140, Potassium 4.0, Chloride 112 H, Carbon Dioxide 22.0, Anion Gap 6, BUN 20 H, Creatinine 1.06 H, Estim Creat Clear Calc 33.35, Est GFR (MDRD) Af Amer 63, Est GFR (MDRD) Non-Af 52 L, BUN/Creatinine Ratio 18.9, Glucose 124 H, Calcium 9.0, Phosphorus 3.0, Magnesium 1.9 Micro: Microbiology 06/26/23 15:56 Blood Culture (Wb) - Anticubital Right Blood Culture - Preliminary No growth in 48 hours. 06/26/23 14:10 Blood Culture (Wb) - Anticubital Left Blood Culture - Preliminary No growth in 48 hours. 06/26/23 13:08 Urine, Clean Catch Urine Culture - Final Mixed Gram Pos & Gram Neg Org Physical Exam Narrative GENERAL: cooperative HEENT: Atraumatic; normocephalic EYES; Anicteric, Normal Conjunctiva NECK; supple, normal thyroid, RESPIRATORY: Diminished to auscultation CARDIOVASCULAR: Regular S1 S2, GI: soft, normoactive bowel sounds, : No Renal angle tenderness; EXTREMITIES: No edema, no clubbing, MUSCULOSKELETAL: no muscle wasting NEURO: Awake; no lateralizing signs. SKIN: No Rash PSYCH; Flat affect Assessment & Plan Assessment/Plan (1) Sepsis: (2) Acidosis, lactic: (3) Transient hypotension: (4) Acute UTI: PLAN: Plan Patient is an 87-year-old lady admitted with septic shock secondary to acute cystitis. Patient blood pressure did drop resulting in patient being transferred to the ICU 1. Septic shock left secondary to acute complicated UTI ? Patient treated per protocol with IV fluids broad-spectrum antibiotic therapy and serial monitoring with lactic acid. Patient did respond to IV fluid and did not end up requiring Levophed which was ordered as part of her management ? 06/29/2023 7 urine cultures positive for mixed organisms. Blood cultures are still pending. Patient continues to improve clinically 2. Diabetes mellitus type II -patient's oral hypoglycemics held. Placed on long acting insulin, Accu-Cheks a.c. and at bedtime and covered with sliding scale insulin 3. Hypothyroidism - Patient is on levothyroxine home dose continued 4. GERD ? On PPI 5.Sarcoidosis ? on hydroxychloroquine 6. Thrombocytopenia ? May be related to patient sepsis, Patient is on enoxaparin will monitor closely 7. Anemia - Secondary to chronic disorder monitoring H&H and transfuse if patient becomes symptomatic or hemoglobin falls below 7 8. Acute kidney injury ? Secondary to suspected ATN from septic shock patient creatinine on admission was 1.58 currently on IV fluid creatinine down to 1.08 9. DVT prophylaxis ? On enoxaparin 10. Physical deconditioning - Requested for PT OT eval and social work coordinator to assist with discharge planning Time spent in the patient's overall evaluation,decision-making process, review of diagnostic data, adjustment of management, discussion with other providers, nursing nursing and ancillary staff involved in patient's care documentation, 38 minutes Charges/Coding Visit Charges Inpatient E&M: 45709 Subs Hosp L2
[2023-06-29 08:31] VITALS: BP 105/63; PULSE 73; RESP 16; TEMP 36.4; O2SAT 98
[2023-06-29] MEDS: Ondansetron 4 MG/2 ML Vial IV (08:39)
[2023-06-29] MEDS: 0.9% Saline Lock 10 ML Syringe IV (08:40)
--- NOTE | 2023-06-29 08:56 | CASEMGMT ---
Nury from [facility] states that they can accept the pt. Will notify Nury of a projected DC date so we can plan a SOC date. Will follow.
[2023-06-29] MEDS: Hydroxychloroquine 200 MG Tablet PO ×2 (10:09→16:28)
[2023-06-29] MEDS: Montelukast 10 MG Tablet PO (10:09)
[2023-06-29] MEDS: Enoxaparin 40 MG/0.4 ML Syringe SC (10:09)
[2023-06-29] MEDS: Multivitamins,Therapeutic Tablet 1 TABLET PO (10:09)
[2023-06-29] MEDS: Cholecalciferol (VIT D3) 25 MCG TABLET (1,000 UNITS) 50 MCG PO (10:09)
[2023-06-29] MEDS: Pantoprazole Sodium 40 MG Tablet PO (10:09)
[2023-06-29] MEDS: Insulin Lispro 100 UNIT/ML INSULN.PEN SC (11:28)
[2023-06-29 11:50] LABS: Bedside Glucose 256 mg/dL (74-106)
[2023-06-29 14:48] VITALS: BP 124/57; PULSE 69; RESP 16; TEMP 36.5; O2SAT 98
[2023-06-29 16:48] LABS: Bedside Glucose 133 mg/dL (74-106)
[2023-06-29 19:25] VITALS: PULSE 70; RESP 18
[2023-06-29 21:39] VITALS: BP 139/77; PULSE 66; RESP 18; TEMP 36.4; O2SAT 98
[2023-06-29] MEDS: Acetaminophen 500 MG Tablet PO (21:51)
[2023-06-29 22:01] LABS: Bedside Glucose 139 mg/dL (74-106)
[2023-06-30] MEDS: Piperacil/Tazobactam 3.375 GM in 0.9% Normal Saline (50mL MB+) 50 ML IV ×2 (00:09→06:11)
[2023-06-30 03:40] VITALS: BP 131/66; PULSE 71; RESP 16; TEMP 36.1; O2SAT 97
[2023-06-30] MEDS: Levothyroxine 75 MCG Tablet PO (06:10)
[2023-06-30] MEDS: Menthol/Lanolin/Calamine/Znox 113 GM Tube 1 APPLIC TOPICAL (06:11)
[2023-06-30 06:52] LABS: Bedside Glucose 128 mg/dL (74-106)
[2023-06-30 07:11] LABS: Absolute Lymphocyte Count 2.26 X10^3/uL (0.83-4.51); Absolute Neutrophil Count 3.3 X10^3/uL (2.0-7.7); Basophil# 0.03 X10^3/uL; Basophil% 0.5 % (0-1); Eosinophil# 0.51 X10^3/uL; Eosinophils% 7.7 % (0-5); Hematocrit 34.2 % (37-47); Hemoglobin 11.5 g/dL (12.0-15.0); Lymphocyte # 2.26 X10^3/ul (0.83-4.51); Lymphocyte % 34.1 % (19-41); Mean Corp Hgb Conc 33.6 g/dL (32-36); Mean Corpuscular Hgb 29.8 pg (27.0-32.0); Mean Corpuscular Volume 88.6 fL (81-99); Mean Platelet Vol. 10.4 fl (6.2-12.0); Monocyte# 0.47 X10^3/uL; Monocyte% 7.1 % (0-10); NRBC Flagged by Analyzer 0 % (0-5); Neutrophil # 3.31 X10^3/uL (2.7-7.7); Platelet Count 191 K/mm3 (150-450); RBC Distribution Width CV 13.2 % (11.6-14.6); RBC Distribution Width SD 42.6 fl (35.1-43.9); Red Blood Count 3.86 M/mm3 (4.2-5.4); White Blood Count 6.6 K/mm3 (4.4-11.0)
[2023-06-30 07:35] VITALS: PULSE 73; RESP 20
[2023-06-30] MEDS: Budesonide Respules 0.5 MG/2 ML AMPUL.NEB. INHALATION (07:35)
[2023-06-30 07:42] LABS: Anion Gap 7 (5-15); BUN 22 mg/dL (7-18); BUN/Creat Ratio 19.8 RATIO (10-20); Calcium,Total 9.2 mg/dL (8.5-10.1); Chloride 113 mmol/L (98-107); Creatinine, Serum 1.11 mg/dL (0.55-1.02); EST Glomerular Filtration Rate 50 mL/min (>60); Est Glom Filt Rate - Afr Amer 60 mL/min (>60); Estimated Creatinine Clearance 31.85 ml/min; Glucose 141 mg/dL (74-106); Potassium 3.9 mmol/L (3.5-5.1); Sodium Level 139 mmol/L (136-145)
[2023-06-30 08:57] VITALS: BP 130/53; PULSE 68; RESP 16; TEMP 36.4; O2SAT 96
[2023-06-30] MEDS: Cholecalciferol (VIT D3) 25 MCG TABLET (1,000 UNITS) 50 MCG PO (09:00)
[2023-06-30] MEDS: Multivitamins,Therapeutic Tablet 1 TABLET PO (09:00)
[2023-06-30] MEDS: Montelukast 10 MG Tablet PO (09:00)
[2023-06-30] MEDS: Hydroxychloroquine 200 MG Tablet PO (09:00)
[2023-06-30] MEDS: Pantoprazole Sodium 40 MG Tablet PO (09:00)
[2023-06-30] MEDS: Enoxaparin 40 MG/0.4 ML Syringe SC (09:00)
[2023-06-30] MEDS: Insulin Lispro 100 UNIT/ML INSULN.PEN SC (11:53)
--- NOTE | 2023-06-30 12:04 | DS.PCM_ITS ---
Providers Date of Admission: 06/26/23 Primary Care Physician: Dr. Regine Mas MD Consultations 06/27/23 12:46 Consult: Supervisor [employer] / Pulmonary Medicine Routine Consulting Provider: Intensivists/Pulmonary Med Reason for Consult: septic shock EMERGENT Consult: No MD Notified: Yes Date Notified: 06/27/23 Time Notified: 14:00 Method of Notification: Verbal Reason For Visit: HYPOTENSION, UTI Diagnosis Discharge Diagnosis (1) Sepsis: Status: Acute Code(s): A41.9 - Sepsis, unspecified organism (2) Acidosis, lactic: Status: Acute Code(s): E87.20 - Acidosis, unspecified (3) Transient hypotension: Status: Acute Code(s): I95.9 - Hypotension, unspecified (4) Acute UTI: Status: Acute Code(s): N39.0 - Urinary tract infection, site not specified Plan Patient is an 87-year-old lady admitted with septic shock secondary to acute cystitis. Patient blood pressure did drop resulting in patient being transferred to the ICU 1. Septic shock left secondary to acute complicated UTI ? Patient treated per protocol with IV fluids broad-spectrum antibiotic therapy and serial monitoring with lactic acid. Patient did respond to IV fluid and did not end up requiring Levophed which was ordered as part of her management ? 06/29/2023 7 urine cultures positive for mixed organisms. Blood cultures are still pending. Patient continues to improve clinically ? Patient blood cultures came back negative for 48 hours. Decision was made to discharge patient home 2. Diabetes mellitus type II -patient's oral hypoglycemics held. Placed on long acting insulin, Accu-Cheks a.c. and at bedtime and covered with sliding scale insulin 3. Hypothyroidism - Patient is on levothyroxine home dose continued 4. GERD ? On PPI 5.Sarcoidosis ? on hydroxychloroquine 6. Thrombocytopenia ? May be related to patient sepsis, Patient is on enoxaparin will monitor closely 7. Anemia - Secondary to chronic disorder monitoring H&H and transfuse if patient becomes symptomatic or hemoglobin falls below 7 8. Acute kidney injury ? Secondary to suspected ATN from septic shock patient creatinine on admission was 1.58 currently on IV fluid creatinine down to 1.08 9. DVT prophylaxis ? On enoxaparin 10. Physical deconditioning - Requested for PT OT eval and social media content specialist to assist with discharge planning Time spent in the patient's overall evaluation,decision-making process, review of diagnostic data, adjustment of management, discussion with other providers, nursing nursing and ancillary staff involved in patient's care documentation, 38 minutes Medications at Discharge Home Medications albuterol sulfate 2.5 mg/3 mL (0.083 %) solution for nebulization 2.5 mg inhalation Q6H PRN PRN Shortness Of Breath 12/21/15 ergocalciferol (vitamin D2) 1,250 mcg (50,000 unit) capsule (Vitamin D2) 50 mcg PO QMONTH 12/21/15 glimepiride 1 mg tablet 1 mg PO DAILY 12/21/15 hydroxychloroquine 200 mg tablet 200 mg PO BIDCM Sarcoidosis 12/21/15 pantoprazole 40 mg tablet,delayed release 40 mg PO DAILY GERD 12/21/15 fluticasone propionate 44 mcg/actuation HFA aerosol inhaler (Flovent HFA) 2 puff inhalation BID 11/02/17 acetaminophen 500 mg tablet 500 mg PO Q6H PRN PRN PAIN 1-10 #0 tabs 08/09/21 polyethylene glycol 3350 17 gram/dose oral powder (Miralax) 17 g PO DAILY PRN constipation #119 grams 08/17/22 levothyroxine 75 mcg tablet 75 mcg PO DAILY 06/26/23 montelukast 10 mg tablet 10 mg PO DAILY 06/26/23 multivitamin with folic acid 400 mcg tablet (Daily-Helen (with folic acid)) 1 tab PO DAILY 06/26/23 nitrofurantoin monohydrate/macrocrystals 100 mg capsule 100 mg PO BID 06/26/23 amoxicillin 875 mg-potassium clavulanate 125 mg tablet 1 tab PO BID #14 tabs 06/30/23 Physical Exam Narrative GENERAL: cooperative HEENT: Atraumatic; normocephalic EYES; Anicteric, Normal Conjunctiva NECK; supple, normal thyroid, RESPIRATORY: Diminished to auscultation CARDIOVASCULAR: Regular S1 S2, GI: soft, normoactive bowel sounds, : No Renal angle tenderness; EXTREMITIES: No edema, no clubbing, MUSCULOSKELETAL: no muscle wasting NEURO: Awake; no lateralizing signs. SKIN: No Rash PSYCH; Flat affect Weight / BMI Weight Weight: 64.4 kg Body Mass Index (BMI) 26.8 ABG / Lab / Microbiology Data 06/30/23 05:55 06/30/23 05:55 Laboratory: Laboratory Results - last 24 hr 06/29/23 16:26: POC Glucose 133 H 06/29/23 21:42: POC Glucose 139 H 06/30/23 05:55: WBC 6.6, RBC 3.86 L, Hgb 11.5 L, Hct 34.2 L, MCV 88.6, MCH 29.8, MCHC 33.6, RDW Std Deviation 42.6, RDW Coeff of Julián 13.2, Plt Count 191, MPV 10.4, Immature Gran % (Auto) 0.600, Neut % (Auto) 50.0, Lymph % (Auto) 34.1, [place] % (Auto) 7.1, Eos % (Auto) 7.7 H, Baso % (Auto) 0.5, Absolute Neuts (auto) 3.3, Absolute Lymphs (auto) 2.26, Nucleated RBC % 0, Sodium 139, Potassium 3.9, Chloride 113 H, Carbon Dioxide 19.0 L, Anion Gap 7, BUN 22 H, Creatinine 1.11 H, Estim Creat Clear Calc 31.85, Est GFR (MDRD) Af Amer 60, Est GFR (MDRD) Non-Af 50 L, BUN/Creatinine Ratio 19.8, Glucose 141 H, Calcium 9.2 06/30/23 06:10: POC Glucose 128 H Microbiology: Microbiology 06/27/23 11:55 Blood Culture (Wb) - Right Hand Blood Culture - Preliminary No growth in 48 hours. 06/27/23 12:10 Blood Culture (Wb) - Arm Left Blood Culture - Preliminary No growth in 48 hours. 06/26/23 15:56 Blood Culture (Wb) - Anticubital Right Blood Culture - Preliminary No growth in 48 hours. 06/26/23 14:10 Blood Culture (Wb) - Anticubital Left Blood Culture - Preliminary No growth in 48 hours. 06/26/23 13:08 Urine, Clean Catch Urine Culture - Final Mixed Gram Pos & Gram Neg Org D/C Instructions Discharge Diet: 1800 Calorie Control Diet Discharge Activity: Return to Normal Activity Call your doctor if you observe: Fever of 101 or Higher, Shortness of breath, Fainting spells and Chest pain Meaningful Use Info Meaningful Use Meaningful Use Diagnoses (Choose all that apply): None applicable Ischemic Stroke Statin Dosing Therapy Reference: STATIN DOSE THERAPY REFERENCE: * Patients > 75 years receive moderate or high dose statin therapy. * Patients 75 years or YOUNGER should receive HIGH intensity statin dose unless contraindicated. You will be required to document reason for non-treatment if statin daily dose does not meet guidelines. HIGH DOSE STATIN THERAPY DAILY Atorvastatin > than or = to 40 mg Rosuvastatin > than or = to 20 mg Amlodipine + Atorvastatin > than or = to 2.5/40 mg Ezetimibe + Simvastatin 10/80 mg Simvastatin 80mg Discharge Plan Admission Admit Date/Time: 06/26/23 13:53 Attending Provider: Tio Mays Primary Care Provider: Regine Mas Consulting Providers: Shirley Hassan Discharge Orders/Prescriptions Prescriptions: New amoxicillin-pot clavulanate 875-125 mg tablet 1 tab PO BID Qty: 14 0RF Continued albuterol sulfate 2.5 MG/3 ML solution for nebulization 2.5 mg inhalation Q6H PRN PRN (Reason: Shortness Of Breath) hydroxychloroquine 200 MG tablet 200 mg PO BIDCM glimepiride 1 MG tablet 1 mg PO DAILY pantoprazole 40 MG tablet 40 mg PO DAILY ergocalciferol (vitamin D2) [Vitamin D2] 50,000 UNIT capsule 50 mcg PO QMONTH Patient Comments: pt states takes daily not monthly fluticasone propionate [Flovent HFA] 1 INHALER inhaler 2 puff inhalation BID acetaminophen 500 mg Tablet 500 mg PO Q6H PRN PRN (Reason: PAIN 1-10) Qty: 0 0RF polyethylene glycol 3350 [Miralax] 17 gram/dose powder 17 g PO DAILY PRN (Reason: constipation) Qty: 119 0RF montelukast 10 mg tablet 10 mg PO DAILY nitrofurantoin monohyd/m-cryst 100 mg capsule 100 mg PO BID multivitamin with folic acid [Daily-Helen (with folic acid)] 400 mcg tablet 1 tab PO DAILY levothyroxine 75 mcg tablet 75 mcg PO DAILY Referrals / Follow Up: Regine Mas MD [Primary Care Provider] - Within 2 Weeks Disposition Disposition (needs filled in before D/C Order can be placed): Home, Self Care Charges/Coding Visit Charges Inpatient E&M: 05807 Disch Hosp >30min
[2023-06-30 13:24] LABS: Bedside Glucose 172 mg/dL (74-106)
--- NOTE | 2023-06-30 13:56 | CASEMGMT ---
Patient has order for discharge. SLADE QUINTERO [facility] Start of care for tomorrow. Therapy was recommending FWW at discharge. Patient states she has standard walker that is new through insurance. Patient states she also has FWW and rollator at home. SLADE QUINTERO updated patient regarding [facility] start of care. Patient voiced understanding. Patient denies further needs or concerns at discharge.
[2023-06-30] MEDS: Hydrocortisone 2.5% Ointment 20 gm tube 1 APPLIC TOPICAL (14:06)
[2023-06-30 15:15] VITALS: BP 128/52; PULSE 64; RESP 14; TEMP 36.2; O2SAT 96
== END 2023-06-30 15:32 | disposition home or self-care (01) | DRG 689 ==
LOC: ED 13:55 → PCU 14:39 → ICU 06-27 12:49 → PCU 06-29 14:24 → ICU 06-30 10:29 → PCU 06-30 10:29
PROVIDERS: Admitting Provider Student in an Organized Health Care Education/Training Program; Emergency Provider Emergency Medicine; PCP Internal Medicine; Visit Provider Internal Medicine
DX: N30.00 Acute cystitis without hematuria (principal); R65.21 Severe sepsis with septic shock; N17.9 Acute kidney failure, unspecified; E87.20 Acidosis, unspecified; D69.6 Thrombocytopenia, unspecified; D63.8 Anemia in other chronic diseases classified elsewhere; I95.9 Hypotension, unspecified; E11.9 Type 2 diabetes mellitus without complications; E03.9 Hypothyroidism, unspecified; J45.909 Unspecified asthma, uncomplicated; K21.9 Gastro-esophageal reflux disease without esophagitis; D86.9 Sarcoidosis, unspecified; Z79.84 Long term (current) use of oral hypoglycemic drugs; Z79.51 Long term (current) use of inhaled steroids; Z90.49 Acquired absence of other specified parts of digestive tract; Z79.899 Other long term (current) drug therapy; R53.81 Other malaise
CPT/HCPCS: 36415; 74176; 80048; 81001; 82962; 83605; 83735; 84100; 85025; 87040; 87086; 87088; 94640; 97162; 97165; 97530; 99284; J7030; J7040; A4216; J2405